=== PATIENT | female | born 1950 | race Caucasian/White ===

== ENCOUNTER → 2018-01-19 09:50 | Outpatient (CLI) | payer MEDICARE, OTHER, SELFPAY | PROVIDERS: Family Provider Family Medicine; PCP Family Medicine; Visit Provider Family Medicine | DX: M85.851 Other specified disorders of bone density and structure, right thigh (principal); Z78.0 Asymptomatic menopausal state; Z85.3 Personal history of malignant neoplasm of breast | CPT/HCPCS: 77080 ==

== ENCOUNTER → 2018-03-27 08:21 | Outpatient (CLI) | payer MEDICARE, OTHER, SELFPAY ==
[2018-03-27 09:04] LABS: Add Manual Diff / Slide Review NO; Basophils Percent Auto 0.9 % (0-2); Hematocrit 40.6 % (36-46); Hemoglobin 13.7 g/dL (12.0-16.0); Lymphocytes Percent Auto 16.1 % (25-40); Mean Corpuscular HGB Conc 33.8 % (30-36); Mean Corpuscular Hemoglobin 31.5 PG (26-34); Mean Corpuscular Volume 93.4 fL (80-100); Monocytes Percent Auto 6.7 % (3-14); Neutrophils Absolute Auto 6300 /uL (3000-5900); Neutrophils Percent Auto 73.3 % (50-75); Platelet Count 273 X10^3/uL (150-400); Red Blood Cell Count 4.35 X10^6/uL (4.0-5.2); Red Cell Distribution Width 12.7 % (11.6-14.8); White Blood Cell Count 8.5 X10^3/uL (4.5-11.0)
[2018-03-27 09:08] LABS: Alanine Aminotransferase 40 IU/L (9-52); Albumin 4.5 g/dL (3.5-5.0); Albumin Globulin Ratio 1.5 (1.0-2.8); Alkaline Phosphatase 66 U/L (38-126); Aspartate Aminotransferase 39 IU/L (14-36); Bilirubin Total 0.8 mg/dL (0.2-1.3); Blood Urea Nitrogen 28 mg/dL (7-17); Calcium 9.3 mg/dL (8.4-10.2); Carbon Dioxide 31 mmol/L (22-32); Chloride 100 mmol/L (98-107); Estimated Glomerular Filt Rate 37.3 mL/min (>60); Glucose 122 mg/dL (80-110); HEMOLYSIS 21 (0-50); Potassium 4.3 mmol/L (3.4-5.1); Sodium 139 mmol/L (137-145); Total Protein 7.5 g/dL (6.3-8.2)
[2018-03-27 09:23] LABS: Vitamin D 25 Hydroxy (D3) 17.2 ng/mL (30.0-100.0)
[2018-03-28 16:22] LABS: Cancer Antigen 27.29 30 U/mL (< 38)
== END ==
PROVIDERS: Family Provider Family Medicine; PCP Family Medicine; Visit Provider Nurse Practitioner Gerontology
DX: C50.911 Malignant neoplasm of unspecified site of right female breast (principal)
CPT/HCPCS: 36415; 80053; 82306; 85025; 86300

== ENCOUNTER 2018-08-30 12:34 | Day surgery (SDC) | payer MEDICARE, OTHER, SELFPAY ==
[2018-08-30 13:22] VITALS: BP 145/89; PULSE 93; RESP 15; TEMP 36.6; O2SAT 99; BMI 39.7
[2018-08-30] MEDS: PROPARACAINE 0.5% OPHTH SOL 2 DROPS EYE-OP (13:30)
[2018-08-30] MEDS: CATARACT EYE COMPOUND (10 DROPS/SYRINGE) 3 DROPS EYE-OP (13:32)
--- NOTE | 2018-08-30 14:22 | PM.PREOP ---
Pre-operative Note Interval Note History & Physical reviewed/Exam performed by Physician: Yes Changes to H&P: No
[2018-08-30] MEDS: CHONDROIDTIN/SOD HYALURONATE 1.05 ML SYRINGE INTRAOCULA (14:48)
[2018-08-30] MEDS: LIDOCAINE JELLY 2% 5 ML 1 APPLIC TOP (14:48)
[2018-08-30] MEDS: MOXIFLOXACIN OPHTH DROPS 3 ML BOTTLE 2 DROPS INJ (14:48)
[2018-08-30] MEDS: PHENYLEPHRINE/LIDOCAINE VIAL (OR) 0.2 ML EYE-OP (14:49)
[2018-08-30] MEDS: BALANCED SALT IRRIG SOLN NO.2 500 ML, EPINEPHrine 1 MG IRR (14:49)
--- NOTE | 2018-08-30 15:22 | P.OP_ITS ---
Procedure & Clinicians Procedure: cataract extraction with intraocular lens implant, right Same procedure as scheduled: Yes Indications: Visually significant nuclear sclerosis cataract, right Surgeon: Javier Gonzalez Click Yes if Unassisted: Yes Anesthesia Type: MAC +/- Operative Notes Procedure in detail: The patient was brought to the operating suite. The correct patient, surgical site and lens were confirmed. 0.5 % tetracaine drops were placed in the right eye. The cornea was marked with a corneal reference marker. The patient was prepped and draped in the typical sterile manner. A lid speculum was placed in the eye. A paracentesis port was created with a side- port blade. 0.1 mL of 1% preservative free lidocaine with phenylephrine was injected into the anterior chamber. Viscoelastic was injected into the anterior chamber. A 2.6mm keratome was used to create a clear corneal temporal incision. Cystotome and Utrata forceps were used to create a continuous curvilinear capsulorrhexis. Balanced salt solution was used to hydrodissect the nucleus. Phacoemulsification was used to remove the lens. The capsular bag was inflated with viscoelastic and marked at 118 degrees. A Galeano ACT 225 +16.0D lens was inserted into the capsule and aligned to 118 degrees. Viscoelastic was removed and the wound hydrated and reinforced with Resure sealant. The wound was found to be leak free and the eye was assessed to be at normal physiologic pressure. 0.1mL Vigamox was injected into the anterior chamber. The lid speculum was removed and the patient left the operating room in excellent condition. Complications: none Condition: stable Disposition: same day surgery
[2018-08-30 15:25] VITALS: BP 164/86; PULSE 88; RESP 16; TEMP 36.6; O2SAT 98
== END 2018-08-30 15:37 | disposition home or self-care (01) ==
LOC: OR 12:37
PROVIDERS: Family Provider Family Medicine; PCP Family Medicine; Visit Provider Ophthalmology
DX: H25.11 Age-related nuclear cataract, right eye (principal); I10 Essential (primary) hypertension
CPT/HCPCS: J0171; V2787

== ENCOUNTER 2018-09-13 06:48 | Day surgery (SDC) | payer MEDICARE, OTHER, SELFPAY ==
[2018-09-13 07:35] VITALS: BP 178/101; PULSE 63; RESP 15; TEMP 37.1; O2SAT 97; BMI 41.5
--- NOTE | 2018-09-13 07:35 | PM.PREOP ---
Pre-operative Note Interval Note History & Physical reviewed/Exam performed by Physician: Yes Changes to H&P: No
[2018-09-13] MEDS: PROPARACAINE 0.5% OPHTH SOL 2 DROPS EYE-OP (07:45)
[2018-09-13] MEDS: CATARACT EYE COMPOUND (10 DROPS/SYRINGE) 3 DROPS EYE-OP ×3 (07:50→08:00)
[2018-09-13] MEDS: TETRACAINE 0.5% OPHTH DROPS 4 ML 2 DROPS EYE-LEFT (08:40)
--- NOTE | 2018-09-13 08:54 | SUR.OPER ---
Supine on eye stretcher, head on extension cradle secured with tape. Arms tucked at sides with blanket. Pillow under knees.
[2018-09-13] MEDS: CHONDROIDTIN/SOD HYALURONATE 1.05 ML SYRINGE INTRAOCULA (08:56)
[2018-09-13] MEDS: MOXIFLOXACIN OPHTH DROPS 3 ML BOTTLE 2 DROPS INJ (08:56)
[2018-09-13] MEDS: PHENYLEPHRINE/LIDOCAINE VIAL (OR) 0.2 ML EYE-OP (08:57)
[2018-09-13] MEDS: BALANCED SALT IRRIG SOLN NO.2 500 ML, EPINEPHrine 1 MG IRR (08:57)
[2018-09-13] MEDS: LIDOCAINE 2% INJ SDV 0.5 ML TOP (09:00)
--- NOTE | 2018-09-13 09:20 | PM.OP.1 ---
Procedure & Clinicians Procedure: cataract extraction with intraocular lens implant, left Same procedure as scheduled: Yes Indications: Visually significant nuclear sclerosis cataract Surgeon: Javier Gonzalez Click Yes if Unassisted: Yes Anesthesia Type: MAC +/- Operative Notes Procedure in detail: The patient was brought to the operating suite. The correct patient, surgical site and lens were confirmed. 0.5 % tetracaine drops were placed in the left eye. The cornea was marked with a reference marker. The patient was prepped and draped in the typical sterile manner. A lid speculum was placed in the eye. 2% preservative free lidocaine was placed on the eye. A paracentesis port was created with a side-port blade. 0.1 mL of 1% preservative free lidocaine with phenylephrine was injected into the anterior chamber. Viscoelastic was injected into the anterior chamber. A 2.6mm keratome was used to create a clear corneal temporal incision. Cystotome and Utrata forceps were used to create a continuous curvilinear capsulorrhexis. Balanced salt solution was used to hydrodissect the nucleus. Phacoemulsification was used to remove the lens. The capsular bag was inflated with viscoelastic and marked at 23 degrees. A Galeano ZCT 150 +16.5D lens was inserted into the capsule and rotated to 23 degrees. Viscoelastic was removed and the wound hydrated. The wound was found to be leak free and the eye was assessed to be at normal physiologic pressure. 0.1mL Vigamox was injected into the anterior chamber. The lid speculum was removed and the patient left the operating room in excellent condition. Complications: none Condition: stable Disposition: same day surgery
[2018-09-13 09:28] VITALS: BP 163/80; PULSE 79; RESP 15; TEMP 36.8; O2SAT 98
== END 2018-09-13 09:33 ==
LOC: OR 06:50
PROVIDERS: Family Provider Family Medicine; PCP Family Medicine; Visit Provider Ophthalmology
DX: H25.12 Age-related nuclear cataract, left eye (principal); I10 Essential (primary) hypertension
CPT/HCPCS: J0171; V2787

== ENCOUNTER 2018-09-20 13:35 | Day surgery (SDC) | payer MEDICARE, OTHER, SELFPAY ==
[2018-09-20 15:31] VITALS: BP 141/90; PULSE 89; RESP 16; TEMP 36.2; O2SAT 98; BMI 39.6
[2018-09-20] MEDS: PROPARACAINE 0.5% OPHTH SOL 2 DROPS EYE-OP (15:33)
[2018-09-20] MEDS: CATARACT EYE COMPOUND (10 DROPS/SYRINGE) 3 DROPS EYE-OP (15:37)
--- NOTE | 2018-09-20 16:11 | PM.PREOP ---
Pre-operative Note Interval Note History & Physical reviewed/Exam performed by Physician: Yes Changes to H&P: No
[2018-09-20] MEDS: PHENYLEPHRINE/LIDOCAINE VIAL (OR) 0.2 ML EYE-OP (16:17)
[2018-09-20] MEDS: MOXIFLOXACIN OPHTH DROPS 3 ML BOTTLE 2 DROPS INJ (16:18)
[2018-09-20] MEDS: CHONDROIDTIN/SOD HYALURONATE 1.05 ML SYRINGE INTRAOCULA (16:18)
[2018-09-20] MEDS: BALANCED SALT IRRIG SOLN NO.2 15 ML IRR ×2 (16:19→16:32)
[2018-09-20] MEDS: TETRACAINE 0.5% OPHTH DROPS 4 ML 2 DROPS EYE-RIGHT (16:19)
[2018-09-20] MEDS: LIDOCAINE 2% INJ SDV 5 ML INJ (16:20)
--- NOTE | 2018-09-20 16:45 | PM.OP.1 ---
Procedure & Clinicians Procedure: repositioning intraocular lens right eye. Same procedure as scheduled: Yes Indications: Decentered intraocular lens, right Surgeon: Javier Gonzalez Click Yes if Unassisted: Yes Anesthesia Type: MAC +/- Operative Notes Procedure in detail: The patient was brought to the operating suite. 0.5 % tetracaine drops were placed in the right eye and the cornea was marked with a reference marker. The patient was prepped and draped in the typical sterile manner. A lid speculum was placed in the eye. 2% lidocaine was placed on the eye. The cornea was marked at 118 degrees. A paracentesis port was created with a side-port blade at 4 o 'clock. 1% preservative free lidocaine with phenylephrine was injected into the anterior chamber. The anterior lip of the capsule was freed from the intraocular lens with a 27 gauge needle and balanced salt solution. The lens was then rotated to 118 degrees and centered. The wound was found to be leak free and the eye was assessed to be at normal physiologic pressure. 0.1mL Vigamox was injected into the anterior chamber. The lid speculum was removed and the patient left the operating room in excellent condition. Complications: none Condition: stable Disposition: same day surgery
[2018-09-20 16:56] VITALS: BP 142/77; PULSE 83; RESP 16; TEMP 36.2; O2SAT 100
== END 2018-09-20 16:58 ==
LOC: OR 13:37
PROVIDERS: Family Provider Family Medicine; PCP Family Medicine; Visit Provider Ophthalmology
PROC: (CPT 66825; principal; 2018-09-20 15:30)
DX: T85.22XA Displacement of intraocular lens, initial encounter (principal)
CPT/HCPCS: 66825

== ENCOUNTER → 2018-10-24 08:10 | Outpatient (CLI) | payer MEDICARE, OTHER, SELFPAY ==
[2018-10-24 08:53] LABS: Add Manual Diff / Slide Review NO; Basophils Absolute Auto 100 /uL (0-100); Basophils Percent Auto 1.2 % (0-2); Eosinophils Absolute Auto 200 /uL (0-450); Eosinophils Percent Auto 2.4 % (2-4); Hematocrit 43.6 % (36-46); Hemoglobin 14.3 g/dL (12.0-16.0); Lymphocytes Absolute Auto 1200 /uL (1100-4500); Lymphocytes Percent Auto 14.3 % (25-40); Mean Corpuscular HGB Conc 32.7 % (30-36); Mean Corpuscular Volume 94.6 fL (80-100); Monocytes Absolute Auto 600 /uL (0-900); Monocytes Percent Auto 6.9 % (3-14); Neutrophils Absolute Auto 6300 /uL (1500-7000); Neutrophils Percent Auto 75.2 % (50-75); Platelet Count 266 X10^3/uL (150-400); Red Cell Distribution Width 12.8 % (11.6-14.8); White Blood Cell Count 8.4 X10^3/uL (4.5-11.0)
[2018-10-24 09:14] LABS: Alanine Aminotransferase 38 IU/L (9-52); Albumin 4.8 g/dL (3.5-5.0); Albumin Globulin Ratio 1.5 (1.0-2.8); Alkaline Phosphatase 67 U/L (38-126); Aspartate Aminotransferase 33 IU/L (14-36); BUN Creatinine Ratio 16.4 (6-22); Bilirubin Total 0.9 mg/dL (0.2-1.3); Blood Urea Nitrogen 23 mg/dL (7-17); Calcium 9.5 mg/dL (8.4-10.2); Carbon Dioxide 27 mmol/L (22-32); Chloride 99 mmol/L (98-107); Cholesterol 177 mg/dL (140-199); Estimated Glomerular Filt Rate 37.2 mL/min (>60); Globulin 3.3 g/dL (1.7-4.1); Glucose 111 mg/dL (80-110); HDL Cholesterol 56 mg/dL (40-60); HEMOLYSIS < 15 (0-50); LDL Cholesterol Calculated 91 mg/dL (<100); Potassium 4.2 mmol/L (3.4-5.1); Sodium 138 mmol/L (137-145); Total Protein 8.1 g/dL (6.3-8.2); Triglycerides 148 mg/dL (35-150)
[2018-10-24 09:57] LABS: Thyroid Stimulating Hormone 1.11 uIU/mL (0.47-4.68)
== END ==
PROVIDERS: PCP Family Medicine; Visit Provider Family Medicine
DX: E78.2 Mixed hyperlipidemia (principal); R53.83 Other fatigue; R79.89 Other specified abnormal findings of blood chemistry; N19 Unspecified kidney failure
CPT/HCPCS: 36415; 80053; 80061; 84443; 85025

== ENCOUNTER 2018-11-16 11:29 | Day surgery (SDC) | payer MEDICARE, OTHER, SELFPAY ==
[2018-11-16] MEDS: SODIUM CHLORIDE 0.9% 1,000 ML 200 ML IV (12:22)
[2018-11-16 12:24] VITALS: BP 149/88; PULSE 90; RESP 16; TEMP 36.5; O2SAT 99; BMI 39.2
--- NOTE | 2018-11-16 12:57 | PM.HP.1 ---
History of Present Illness Date Patient Seen: 11/16/18 Time Patient Seen: 12:58 Chief complaint: [id number] Narrative: Patient is here for a screening colonoscopy she has no melena no hematochezia no abdominal pain Patient History Surgical History History of nephrectomy Status post biopsy (08/09/12) Status post breast lumpectomy (08/23/07) Family History Father Cancer Heart disease Hypertension Hyperlipidemia Mother Heart disease Hypertension Sister Age: 69 Hypertension Hyperlipidemia Grandmother Cancer Social History household members: family occupational status: unemployed Smoking Status: Never smoker alcohol intake: never Family & Social History Family History Father Cancer Heart disease Hypertension Hyperlipidemia Mother Heart disease Hypertension Sister Age: 69 Hypertension Hyperlipidemia Grandmother Cancer Social History: household members family Tobacco & Substance use: Smoking Status Never smoker alcohol intake never Meds Home Medications Medication Instructions Recorded Confirmed Type losartan 50 mg-hydrochlorothiazide 1 tab PO QDAY #90 tab 01/02/18 11/16/18 Rx 12.5 mg tablet simvastatin 20 mg tablet 20 mg PO QDAY #90 tab 01/02/18 11/16/18 Rx acetaminophen [Tylenol Extra 500 mg PO Q6H PRN MDD pain 04/02/18 11/16/18 History Strength] alendronate 70 mg tablet 70 mg PO QWEEK 10/09/18 11/16/18 History Allergies Allergy/AdvReac Type Severity Reaction Status Date / Time amlodipine Allergy Mild SWELLING Verified 11/16/18 12:23 fentanyl Allergy Mild VOMITING Verified 11/16/18 12:23 neomycin Allergy Mild VOMITING,BLISTERING Verified 11/16/18 12:23 WITH NEOSPORIN oxycodone Allergy Mild VOMITING Verified 11/16/18 12:23 codeine AdvReac Mild VOMITING Verified 11/16/18 12:23 Exam Vital Signs (past 8 hours): - 11/16/18 12:24 Temperature 97.7 F Pulse Rate 90 Respiratory Rate 16 Blood Pressure 149/88 H Pulse Oximetry 99 Oxygen Delivery Method Room Air Chest Chest: normal inspection of the chest and normal palpation of entire chest wall Objective ECG Impression: The examination is unremarkable lungs are clear heart has a regular rhythm no murmur no gallop abdominal exam benign rectal exam will be done at time of colonoscopy assessment is screening colonoscopy no prior history of polyps Plan Is screening colonoscopy
[2018-11-16] MEDS: MIDAZOLAM 5 MG/5 ML VIAL IV (13:20)
--- NOTE | 2018-11-16 13:31 | PM.OP.1 ---
Procedure & Clinicians Same procedure as scheduled: Yes Click Yes if Unassisted: Yes Anesthesia Type: Sedation Operative Notes Findings: Patient has sigmoid diverticulosis otherwise a normal colonoscopy Procedure in detail: Total sedation time for this procedure was 13 minutes we used only Versed because she has narcotic allergies. Total colonoscopy to the cecum was accomplished minimal findings of sigmoid diverticulosis no tumors no polyps no ulcerations procedure was well tolerated Complications: none Condition: stable Disposition: PACU
[2018-11-16 13:34] VITALS: BP 147/84; PULSE 94; RESP 16; TEMP 36.5; O2SAT 100
[2018-11-16 13:39] VITALS: BP 160/73; PULSE 101; RESP 16; O2SAT 100
[2018-11-16 13:45] VITALS: BP 166/87; PULSE 98; RESP 14; TEMP 36.2; O2SAT 100
[2018-11-16 13:56] VITALS: BP 130/79; PULSE 99; RESP 16; TEMP 36.9; O2SAT 97
== END 2018-11-16 14:06 | disposition home or self-care (01) ==
PROVIDERS: PCP Family Medicine; Visit Provider Surgery
PROC: 0DJD8ZZ Inspection of Lower Intestinal Tract, Via Natural or Artificial Opening Endoscopic (ICD-10-PCS; CPT 45378; principal; 2018-11-16 13:00)
DX: Z12.11 Encounter for screening for malignant neoplasm of colon (principal); K57.30 Diverticulosis of large intestine without perforation or abscess without bleeding
CPT/HCPCS: G0121; J2250

== ENCOUNTER → 2018-11-21 08:44 | Outpatient (CLI) | payer MEDICARE, OTHER, SELFPAY ==
[2018-11-21 09:45] LABS: Add Manual Diff / Slide Review NO; Basophils Absolute Auto 100 /uL (0-100); Eosinophils Absolute Auto 200 /uL (0-450); Eosinophils Percent Auto 2.8 % (2-4); Hematocrit 42.5 % (36-46); Hemoglobin 14.2 g/dL (12.0-16.0); Lymphocytes Absolute Auto 1600 /uL (1100-4500); Lymphocytes Percent Auto 18.4 % (25-40); Mean Corpuscular HGB Conc 33.4 % (30-36); Mean Corpuscular Hemoglobin 31.1 PG (26-34); Monocytes Absolute Auto 600 /uL (0-900); Monocytes Percent Auto 7.6 % (3-14); Neutrophils Absolute Auto 5900 /uL (1500-7000); Neutrophils Percent Auto 70.2 % (50-75); Platelet Count 284 X10^3/uL (150-400); Red Blood Cell Count 4.57 X10^6/uL (4.0-5.2); White Blood Cell Count 8.4 X10^3/uL (4.5-11.0)
[2018-11-21 10:12] LABS: Alanine Aminotransferase 34 IU/L (9-52); Albumin 4.6 g/dL (3.5-5.0); Albumin Globulin Ratio 1.5 (1.0-2.8); Alkaline Phosphatase 74 U/L (38-126); Aspartate Aminotransferase 29 IU/L (14-36); BUN Creatinine Ratio 14.6 (6-22); Bilirubin Total 0.8 mg/dL (0.2-1.3); Blood Urea Nitrogen 19 mg/dL (7-17); Carbon Dioxide 24 mmol/L (22-32); Chloride 100 mmol/L (98-107); Estimated Glomerular Filt Rate 40.5 mL/min (>60); Globulin 3.1 g/dL (1.7-4.1); Glucose 108 mg/dL (80-110); HEMOLYSIS < 15 (0-50); Potassium 3.8 mmol/L (3.4-5.1); Sodium 137 mmol/L (137-145); Total Protein 7.7 g/dL (6.3-8.2)
== END ==
PROVIDERS: Family Provider Family Medicine; PCP Family Medicine; Visit Provider Internal Medicine Hematology & Oncology
DX: E55.9 Vitamin D deficiency, unspecified (principal); C50.919 Malignant neoplasm of unspecified site of unspecified female breast
CPT/HCPCS: 36415; 80053; 82306; 85025

== ENCOUNTER → 2018-11-23 07:49 | Outpatient (CLI) | payer MEDICARE, OTHER, SELFPAY ==
--- NOTE | 2018-11-23 07:51 | DI.MG.S_ITS ---
BILATERAL DIGITAL SCREENING MAMMOGRAM 3D/2D WITH CAD POST LUMPECTOMY: 11/23/2018 CLINICAL: Routine screening. Personal history of right breast cancer. Family history of breast cancer. Comparison is made to exams dated: 11/22/2017 mammogram, 11/08/2016 mammogram, and 11/05/2015 mammogram - [facility]. The tissue of both breasts is heterogeneously dense. This may lower the sensitivity of mammography. Current study was also evaluated with a Computer Aided Detection (CAD) system. There are benign post operative findings in the right breast. There also are benign calcifications in both breasts. No significant masses, calcifications, or other findings are seen in either breast. There has been no significant interval change. IMPRESSION: There is no mammographic evidence of malignancy. A 1 year screening mammogram is recommended. This exam was interpreted at Station ID: [id number]. NOTE: For mammograms, a report in lay terms will be sent to the patient. Approximately 15% of breast malignancies will not be visualized mammographically. In the management of a palpable breast mass, a negative mammogram must not discourage biopsy of a clinically suspicious lesion. Electronically Signed By: Milo fish/catherine:11/23/2018 12:10:51 copy to: Bernardo Geiger letter sent: Normal Exam ACR BI-RADS Category 2: Benign Finding(s) [id number]
== END ==
PROVIDERS: Family Provider Family Medicine; PCP Family Medicine; Visit Provider Internal Medicine Hematology & Oncology
DX: Z12.31 Encounter for screening mammogram for malignant neoplasm of breast (principal); Z85.3 Personal history of malignant neoplasm of breast; Z80.3 Family history of malignant neoplasm of breast
CPT/HCPCS: 77063; 77067

== ENCOUNTER → 2019-06-10 07:39 | Outpatient (CLI) | payer MEDICARE, OTHER, SELFPAY ==
[2019-06-10 08:09] LABS: Add Manual Diff / Slide Review NO; Basophils Absolute Auto 100 /uL (0-100); Basophils Percent Auto 0.8 % (0-2); Eosinophils Absolute Auto 200 /uL (0-450); Eosinophils Percent Auto 2.2 % (2-4); Hematocrit 41.8 % (36-46); Hemoglobin 14.1 g/dL (12.0-16.0); Lymphocytes Absolute Auto 1100 /uL (1100-4500); Mean Corpuscular HGB Conc 33.7 % (30-36); Mean Corpuscular Hemoglobin 31.4 PG (26-34); Mean Corpuscular Volume 93.3 fL (80-100); Monocytes Absolute Auto 700 /uL (0-900); Monocytes Percent Auto 7.7 % (3-14); Neutrophils Absolute Auto 7000 /uL (1500-7000); Neutrophils Percent Auto 77.3 % (50-75); Platelet Count 281 X10^3/uL (150-400); Red Blood Cell Count 4.48 X10^6/uL (4.0-5.2); Red Cell Distribution Width 12.8 % (11.6-14.8)
[2019-06-10 08:14] LABS: Alanine Aminotransferase 27 IU/L (9-52); Albumin 4.8 g/dL (3.5-5.0); Albumin Globulin Ratio 1.5 (1.0-2.8); Alkaline Phosphatase 74 U/L (38-126); Aspartate Aminotransferase 35 IU/L (14-36); Bilirubin Total 0.9 mg/dL (0.2-1.3); Blood Urea Nitrogen 24 mg/dL (7-17); Carbon Dioxide 27 mmol/L (22-32); Chloride 99 mmol/L (98-107); Estimated Glomerular Filt Rate 34.2 mL/min (>60); Globulin 3.1 g/dL (1.7-4.1); Glucose 118 mg/dL (80-110); HEMOLYSIS < 15 (0-50); Potassium 4.2 mmol/L (3.4-5.1); Sodium 138 mmol/L (137-145); Total Protein 7.9 g/dL (6.3-8.2)
[2019-06-10 09:11] LABS: Vitamin D 25 Hydroxy (D3) 27.6 ng/mL (30.0-100.0)
== END ==
PROVIDERS: Internal Medicine Hematology & Oncology; PCP Family Medicine; Visit Provider Family Medicine
DX: E55.9 Vitamin D deficiency, unspecified (principal); M85.80 Other specified disorders of bone density and structure, unspecified site; R79.89 Other specified abnormal findings of blood chemistry; C50.919 Malignant neoplasm of unspecified site of unspecified female breast
CPT/HCPCS: 36415; 80053; 82306; 85025

== ENCOUNTER → 2019-07-10 08:12 | Outpatient (CLI) | payer MEDICARE, OTHER, SELFPAY ==
--- NOTE | 2019-07-10 08:14 | DI.RAD.S_ITS ---
PROCEDURE: XR ANKLE RT MIN 3V INDICATIONS: Right ankle pain. TECHNIQUE: 3 views of the ankle were acquired. COMPARISON: None. FINDINGS: Bones: No fractures or dislocations. Ankle mortise is normally aligned. No suspicious bony lesions. There are mild degenerative changes of the right fibula-talar joint/lateral right ankle as evidenced by osteophyte formation. There are also degenerative changes of the midfoot with a prominent dorsal navicular osteophyte identified best on lateral view. Soft tissues: No tibiotalar joint effusion. A mild plantar calcaneal enthesophyte noted. IMPRESSION: 1. Mild degenerative changes of the lateral right ankle and right midfoot, with no acute fracture or dislocation of the right ankle identified radiographically. Consider followup radiographs in 7-10 days versus MRI if there is continued clinical concern. 2. Mild plantar calcaneal enthesopathy. Dictated by: Amilcar Parry M.D. on 07/10/2019 at 9:28 Approved by: Amlicar Parry M.D. on 07/10/2019 at 9:34
== END ==
PROVIDERS: PCP Family Medicine; Visit Provider Family Medicine
DX: M25.571 Pain in right ankle and joints of right foot (principal); M77.31 Calcaneal spur, right foot
CPT/HCPCS: 73610

== ENCOUNTER 2019-09-10 12:19 | Emergency (ER) | payer MEDICARE, OTHER, SELFPAY ==
[2019-09-10 12:20] VITALS: BP 198/90; PULSE 73; RESP 13; TEMP 36.2; O2SAT 99
--- NOTE | 2019-09-10 13:05 | DI.CT.S_ITS ---
PROCEDURE: CT HEAD/BRAIN WO CON INDICATIONS: sudden onset lightheaded TECHNIQUE: Noncontrast 4.5 mm thick angled axial sections acquired from the foramen magnum to the vertex, with coronal and sagittal reformats. For radiation dose reduction, the following was used: automated exposure control, adjustment of mA and/or kV according to patient size. COMPARISON: None. FINDINGS: Image quality: Excellent. CSF spaces: Basal cisterns are patent. No extra-axial fluid collections. Ventricles are normal in size and shape. Brain: No intracranial hemorrhage, mass, or mass effect. Mera-white matter interface is preserved. Skull and face: Calvarium and visualized facial bones appear intact, without suspicious lesions. Sinuses: Visualized sinuses and mastoids are clear. IMPRESSION: 1. No acute intracranial abnormality. Dictated by: Jarad Snowden M.D. on 09/10/2019 at 13:49 Approved by: Jarad Snowden M.D. on 09/10/2019 at 13:51
[2019-09-10] MEDS: SODIUM CHLORIDE 0.9% 1,000 ML 1000 ML IV (13:36)
[2019-09-10 13:37] LABS: Add Manual Diff / Slide Review NO; Basophils Absolute Auto 100 /uL (0-100); Basophils Percent Auto 1.4 % (0-2); Eosinophils Absolute Auto 200 /uL (0-450); Eosinophils Percent Auto 2.2 % (2-4); Hematocrit 40.4 % (36-46); Hemoglobin 13.7 g/dL (12.0-16.0); Lymphocytes Absolute Auto 1300 /uL (1100-4500); Lymphocytes Percent Auto 15.7 % (25-40); Mean Corpuscular HGB Conc 33.9 % (30-36); Mean Corpuscular Hemoglobin 31.4 PG (26-34); Mean Corpuscular Volume 92.8 fL (80-100); Monocytes Absolute Auto 600 /uL (0-900); Monocytes Percent Auto 7.2 % (3-14); Neutrophils Absolute Auto 6000 /uL (1500-7000); Neutrophils Percent Auto 73.5 % (50-75); Platelet Count 247 X10^3/uL (150-400); Red Blood Cell Count 4.36 X10^6/uL (4.0-5.2); Red Cell Distribution Width 12.9 % (11.6-14.8); White Blood Cell Count 8.1 X10^3/uL (4.5-11.0)
[2019-09-10] MEDS: MECLIZINE HCL 12.5 MG TABLET 25 MG PO (13:39)
[2019-09-10 13:44] LABS: Prothrombin Time 10.9 SECONDS (10.1-12.7)
[2019-09-10 13:49] LABS: Alanine Aminotransferase 22 IU/L (<35); Albumin 4.6 g/dL (3.5-5.0); Albumin Globulin Ratio 1.4 (1.0-2.8); Alkaline Phosphatase 62 U/L (38-126); Aspartate Aminotransferase 27 IU/L (14-36); BUN Creatinine Ratio 18.6 (6-22); Bilirubin Total 0.6 mg/dL (0.2-1.3); Blood Urea Nitrogen 26 mg/dL (7-17); Calcium 10.3 mg/dL (8.4-10.2); Carbon Dioxide 27 mmol/L (22-32); Chloride 101 mmol/L (98-107); Creatine Kinase 89 U/L (30-135); Estimated Glomerular Filt Rate 37.1 mL/min (>60); Globulin 3.2 g/dL (1.7-4.1); Glucose 117 mg/dL (80-110); HEMOLYSIS 17 (0-50); Potassium 3.8 mmol/L (3.4-5.1); Sodium 138 mmol/L (137-145); Total Protein 7.8 g/dL (6.3-8.2)
[2019-09-10 14:01] LABS: Troponin I < 0.012 ng/mL (0.01-0.034)
[2019-09-10 14:26] VITALS: BP 173/87; PULSE 57; RESP 16; O2SAT 98
[2019-09-10 15:04] VITALS: BP 156/83; PULSE 54; O2SAT 97
--- NOTE | 2019-09-10 17:13 | ED.DIZZY ---
HPI - Dizziness <GILSON Carty-BC - Last Filed: 09/10/19 17:20> General Chief Complaint: Dizziness Stated Complaint: DIZZY Time Seen by Provider: 09/10/19 12:32 Source: patient Mode of arrival: Ambulatory Limitations: no limitations History of Present Illness HPI Narrative: The patient is a 69-year-old female nonsmoker with history of breast cancer who presents with a chief complaint of spinning sensation with sudden onset this morning at 8:00 a.m.. She states she is placed in the dentist chair and laid back for her procedure when she had a sudden onset of spinning sensation. She states that now whenever she bends forward or backward and turns her head, she feels as though she is spinning. She denies any chest pain, shortness of breath, weakness, blurred vision or visual changes, confusion etcetera she drove from the dentist office to cook pickled meat her twin sister and then dropped to the emergency department today after she called her physician's nurse. Denies any vomiting, does complain of nausea with the spinning hit. Denies any fevers, sore throat or ear pain. Related Data Home Medications Medication Instructions Recorded Confirmed acetaminophen [Tylenol Extra 500 mg PO Q6H PRN MDD pain 04/02/18 07/03/19 Strength] losartan-hydrochlorothiazide 1 tab PO DAILY 09/10/19 09/10/19 Previous Rx's Medication Instructions Recorded alendronate 70 mg tablet 70 mg PO QWEEK #12 tab 06/13/19 simvastatin 20 mg tablet 20 mg PO QDAY #90 tab 06/13/19 meclizine 25 mg PO TID PRN #20 tab 09/10/19 Allergies Allergy/AdvReac Type Severity Reaction Status Date / Time amlodipine Allergy Mild SWELLING Verified 07/03/19 08:16 fentanyl Allergy Mild VOMITING Verified 07/03/19 08:16 neomycin Allergy Mild VOMITING,BLISTERING Verified 07/03/19 08:16 WITH NEOSPORIN oxycodone Allergy Mild VOMITING Verified 07/03/19 08:16 codeine AdvReac Mild VOMITING Verified 07/03/19 08:16 Review of Systems <GILSON Carty-BC - Last Filed: 09/10/19 17:20> Review of Systems Narrative: GENERAL: Denies chills, fatigue, malaise, fever, sweats. HEENT: Denies sinus pain, ear pain, sore throat, difficulty swallowing, dizziness. RESPIRATORY: Denies dyspnea, cough, wheezing, hemoptysis, sputum. CARDIOVASCULAR: Denies chest pain, palpitations, orthopnea, edema, GASTROINTESTINAL: Denies nausea, vomiting, abdominal pain, diarrhea, constipation, melena. : Denies dysuria, frequency, incontinence, hematuria, urinary retention. MUSCULOSKELETAL: denies weakness, joint pain, or bony pain SKIN: Denies rash, skin lesions, or other NEUROLOGIC: See HPI PSYCHIATRIC: No concerning psychosocial issues. 12 point review of systems is negative except for those stated above Patient History <MARY Carty - Last Filed: 09/10/19 17:20> Surgical History History of nephrectomy Status post biopsy (08/09/12) Status post breast lumpectomy (08/23/07) Family History Father Cancer Heart disease Hypertension Hyperlipidemia Mother Heart disease Hypertension Sister Age: 70 Hypertension Hyperlipidemia Grandmother Cancer Social History household members: family occupational status: unemployed Smoking Status: Never smoker alcohol intake: never Smoking Status: Never smoker Substance Use Type: does not use Exam <MARY Carty - Last Filed: 09/10/19 17:20> Narrative Exam Narrative: GENERAL: This is a well-nourished, well-developed patient, in no acute distress HEAD: Atraumatic. Normocephalic. No temporal or scalp tenderness. EYES: Pupils equal round and reactive. Extraocular motions intact. No scleral icterus. No injection or drainage. ENT: Nose without bleeding, purulent drainage or septal hematoma. Throat without erythema, tonsillar hypertrophy or exudate. Uvula midline. Airway patent. NECK: Trachea midline. No JVD or lymphadenopathy. Supple, nontender, no meningeal signs. CARDIOVASCULAR: Regular rate and rhythm without murmurs, gallops, or rubs. RESPIRATORY: Clear to auscultation. Breath sounds equal bilaterally. No wheezes, rales, or rhonchi. No cough. No increased respiratory effort. No accessory muscle use. GASTROINTESTINAL: Abdomen soft, non-tender, nondistended. No hepato-splenomegaly, or palpable masses. No guarding. Active bowel sounds all 4 quadrants. EXTREMITIES: No clubbing, cyanosis, or edema. No joint tenderness, effusion, or edema noted. BACK: Nontender without deformity or crepitance. No flank tenderness. NEURO: AOx3. Stable gait, age-appropriate, no gross cranial nerve deficit. Strength is equal upper and lower extremities bilaterally, NIH 0 clear speech SKIN: No rash or erythema on visible skin Initial Vital Signs Initial Vital Signs: Vital Signs Temperature 97.1 F L 09/10/19 12:20 Pulse Rate 73 09/10/19 12:20 Respiratory Rate 13 09/10/19 12:20 Blood Pressure 198/90 H 09/10/19 12:20 Pulse Oximetry 99 09/10/19 12:20 <Marnie Blum DO - Last Filed: 09/11/19 07:23> Initial Vital Signs Initial Vital Signs: Vital Signs Temperature 97.1 F L 09/10/19 12:20 Pulse Rate 73 09/10/19 12:20 Respiratory Rate 13 09/10/19 12:20 Blood Pressure 198/90 H 09/10/19 12:20 Pulse Oximetry 99 09/10/19 12:20 Scores <MARY Carty - Last Filed: 09/10/19 17:20> GCS Nai coma scale eye opening: Spontaneous [place] coma scale verbal response: Orientated [place] coma scale motor response: Obey commands Nai coma scale total score: 15 NIH Stroke Scale Level of Conciousness: Alert, keenly responsive Ask month/age: Answers both questions correctly. Open/close eyes, close hand: Performs both tasks correctly Best gaze horizontal: Normal Visual snyder: No visual loss Facial palsy: Normal symetrical movement Left arm drift: No drift for full 10 sec Right arm drift: No drift for full 10 sec Left leg drift: No drift for full 10 sec Right leg drift: No drift for full 10 sec Limb ataxia: Absent Sensory on face/arms/legs: Normal, no sensory loss Best language: No aphasia, normal Dysarthria: Normal Extinction or inattention: No abnormality Total NIH Stroke scale score: 0 Course <MARY Carty - Last Filed: 09/10/19 17:20> Orders Ordered: Discontinued Medications Sodium Chloride (Normal Saline 0.9%) 1,000 mls @ 1,000 mls/hr IV BOLUS ONE Stop: 09/10/19 14:33 Last Infusion: 09/10/19 15:08 Dose: 0 mls/hr Documented by: Admin: 09/10/19 13:36 Dose: 1,000 mls/hr Documented by: ADELAIDE Meclizine HCl (Antivert) 25 mg PO NOW ONE Stop: 09/10/19 13:35 Last Admin: 09/10/19 13:39 Dose: 25 mg Documented by: ADELAIDE Vital Signs Vital signs: Vital Signs - 8 hr 09/10/19 12:20 09/10/19 14:26 09/10/19 15:04 Temperature 97.1 F L Pulse Rate 73 57 L 54 L Respiratory Rate 13 16 Blood Pressure 198/90 H Blood Pressure [Left Arm] 173/87 H 156/83 H Pulse Oximetry 99 98 97 <Marnie Blum DO - Last Filed: 09/11/19 07:23> Orders Ordered: Discontinued Medications Sodium Chloride (Normal Saline 0.9%) 1,000 mls @ 1,000 mls/hr IV BOLUS ONE Stop: 09/10/19 14:33 Last Infusion: 09/10/19 15:08 Dose: 0 mls/hr Documented by: Admin: 09/10/19 13:36 Dose: 1,000 mls/hr Documented by: ADELAIDE Meclizine HCl (Antivert) 25 mg PO NOW ONE Stop: 09/10/19 13:35 Last Admin: 09/10/19 13:39 Dose: 25 mg Documented by: ADELAIDE Vital Signs Vital signs: Vital Signs - 8 hr 09/10/19 12:20 09/10/19 14:26 09/10/19 15:04 Temperature 97.1 F L Pulse Rate 73 57 L 54 L Respiratory Rate 13 16 Blood Pressure 198/90 H Blood Pressure [Left Arm] 173/87 H 156/83 H Pulse Oximetry 99 98 97 MDM - Dizziness <MARY Carty - Last Filed: 09/10/19 17:20> Lab Data Result diagrams: 09/10/19 13:30 09/10/19 13:30 Labs: Lab Results 09/10/19 09/10/19 09/10/19 Range/Units 13:30 13:30 13:30 WBC 8.1 (4.5-11.0) X10^3/uL RBC 4.36 (4.0-5.2) X10^6/uL Hgb 13.7 (12.0-16.0) g/dL Hct 40.4 (36-46) % MCV 92.8 (80-100) fL MCH 31.4 (26-34) PG MCHC 33.9 (30-36) % RDW 12.9 (11.6-14.8) % Plt Count 247 (150-400) X10^3/uL Neut % (Auto) 73.5 (50-75) % Lymph % (Auto) 15.7 L (25-40) % Crawford % (Auto) 7.2 (3-14) % Eos % (Auto) 2.2 (2-4) % Baso % (Auto) 1.4 (0-2) % Neut # (Auto) 6000 (4257-2331) /uL Lymph # (Auto) 1300 (1762-4352) /uL Crawford # (Auto) 600 (0-900) /uL Eos # (Auto) 200 (0-450) /uL Baso # (Auto) 100 (0-100) /uL PT 10.9 (10.1-12.7) SECONDS INR 1.0 (0.9-1.3) Sodium 138 (137-145) mmol/L Potassium 3.8 (3.4-5.1) mmol/L Chloride 101 (98-107) mmol/L Carbon Dioxide 27 (22-32) mmol/L BUN 26 H (7-17) mg/dL Creatinine 1.40 H (0.52-1.04) mg/dL Estimated GFR 37.1 L (>60) mL/min BUN/Creatinine Ratio 18.6 (6-22) Glucose 117 H (80-110) mg/dL Calcium 10.3 H (8.4-10.2) mg/dL Total Bilirubin 0.6 (0.2-1.3) mg/dL AST 27 (14-36) IU/L ALT 22 (<35) IU/L Alkaline Phosphatase 62 (38-126) U/L Total Creatine Kinase 89 (30-135) U/L CK-MB (CK-2) TNP CK-MB (CK-2) Rel Index TNP Troponin I < 0.012 (0.01-0.034) ng/mL Total Protein 7.8 (6.3-8.2) g/dL Albumin 4.6 (3.5-5.0) g/dL Globulin 3.2 (1.7-4.1) g/dL Albumin/Globulin Ratio 1.4 (1.0-2.8) Urine Dip Bedside Urine Glucose Negative Bedside Urine Bilirubin - Negative Bedside Urine Ketone - Negative Urine Specific [place] 1.020 Bedside Urine Occult Blood - Negative Bedside Urine pH 6.0 Bedside Urine Protein - Negative Bedside Urine Urobilinogen - Negative Bedside Urine Nitrite - Negative Bedside Urine Leukocytes - Negative Esterase Imaging Data CT scan - head: Radiologist's Impression: [address] [address] [address] Scan Report Signed Patient: Blanca Sanches#: [id number] : 8Acct:[id number] Age/Sex: 69 / FDate of Service: 09/10/19 Loc: ED Accession Number: [id number] Procedure: CT head/brain wo con Ordering Provider: Zenia Govea- PROCEDURE: CT HEAD/BRAIN WO CON INDICATIONS: sudden onset lightheaded TECHNIQUE: Noncontrast 4.5 mm thick angled axial sections acquired from the foramen magnum to the vertex, with coronal and sagittal reformats. For radiation dose reduction, the following was used: automated exposure control, adjustment of mA and/or kV according to patient size. COMPARISON: None. FINDINGS: Image quality: Excellent. CSF spaces: Basal cisterns are patent. No extra-axial fluid collections. Ventricles are normal in size and shape. Brain: No intracranial hemorrhage, mass, or mass effect. Mera-white matter interface is preserved. Skull and face: Calvarium and visualized facial bones appear intact, without suspicious lesions. Sinuses: Visualized sinuses and mastoids are clear. IMPRESSION: 1. No acute intracranial abnormality. Dictated by: Jarad Snowden M.D. on 09/10/2019 at 13:49 Approved by: Jarad Snowden M.D. on 09/10/2019 at 13:51 [facility] Narrative Medical decision making narrative: The patient is a 69-year-old female who presents with a chief complaint of sudden onset of dizziness when lying back in her dentist chair. Head CT shows no acute abnormalities, troponin is negative, and patient is GCS is 15, NIH is 0. She felt much better after single dose of meclizine. History and exam correlates with vertigo. Discussed at length following up with primary care provider, did give prescription of meclizine. Discussed going back to ER for acute concerns. Patient has no questions or concerns upon discharge and states understanding return precautions as well as follow-up care. <Marnie Blum, DO - Last Filed: 09/11/19 07:23> Lab Data Labs: Lab Results 09/10/19 09/10/19 09/10/19 Range/Units 13:30 13:30 13:30 WBC 8.1 (4.5-11.0) X10^3/uL RBC 4.36 (4.0-5.2) X10^6/uL Hgb 13.7 (12.0-16.0) g/dL Hct 40.4 (36-46) % MCV 92.8 (80-100) fL MCH 31.4 (26-34) PG MCHC 33.9 (30-36) % RDW 12.9 (11.6-14.8) % Plt Count 247 (150-400) X10^3/uL Neut % (Auto) 73.5 (50-75) % Lymph % (Auto) 15.7 L (25-40) % Crawford % (Auto) 7.2 (3-14) % Eos % (Auto) 2.2 (2-4) % Baso % (Auto) 1.4 (0-2) % Neut # (Auto) 6000 (8850-1233) /uL Lymph # (Auto) 1300 (7298-0580) /uL Crawford # (Auto) 600 (0-900) /uL Eos # (Auto) 200 (0-450) /uL Baso # (Auto) 100 (0-100) /uL PT 10.9 (10.1-12.7) SECONDS INR 1.0 (0.9-1.3) Sodium 138 (137-145) mmol/L Potassium 3.8 (3.4-5.1) mmol/L Chloride 101 (98-107) mmol/L Carbon Dioxide 27 (22-32) mmol/L BUN 26 H (7-17) mg/dL Creatinine 1.40 H (0.52-1.04) mg/dL Estimated GFR 37.1 L (>60) mL/min BUN/Creatinine Ratio 18.6 (6-22) Glucose 117 H (80-110) mg/dL Calcium 10.3 H (8.4-10.2) mg/dL Total Bilirubin 0.6 (0.2-1.3) mg/dL AST 27 (14-36) IU/L ALT 22 (<35) IU/L Alkaline Phosphatase 62 (38-126) U/L Total Creatine Kinase 89 (30-135) U/L CK-MB (CK-2) TNP CK-MB (CK-2) Rel Index TNP Troponin I < 0.012 (0.01-0.034) ng/mL Total Protein 7.8 (6.3-8.2) g/dL Albumin 4.6 (3.5-5.0) g/dL Globulin 3.2 (1.7-4.1) g/dL Albumin/Globulin Ratio 1.4 (1.0-2.8) Urine Dip Bedside Urine Glucose Negative Bedside Urine Bilirubin - Negative Bedside Urine Ketone - Negative Urine Specific [place] 1.020 Bedside Urine Occult Blood - Negative Bedside Urine pH 6.0 Bedside Urine Protein - Negative Bedside Urine Urobilinogen - Negative Bedside Urine Nitrite - Negative Bedside Urine Leukocytes - Negative Esterase ECG Data Attestation: I personally reviewed and interpreted this ECG as follows: Prior ECG tracings: available for review Interpretation: sinus arrhythmia rate 65 p.r. interval [address] elevation or depression there Discharge Plan Departure Patient Disposition: Home Clinical Impression: Vertigo, Dizziness Discharge Date/Time: 09/10/19 15:27 Instructions: DI for Vertigo, DI for Dizziness-Nonvertigo Activity Restrictions/Additional Instructions: As I discussed, you did the right thing by coming to the emergency department today. Please do back to the emergency department if you have any acute concerns. As discussed, your lab work and imaging came back reassuring today. You felt better after single dose of meclizine, which is a medication for vertigo As I discussed please follow-up with primary care provider in the next few days. Please come back to emergency department for any acute concerns such as concern of heart attack, stroke etcetera I've given you a prescription for a vertigo medication please be aware this can be sedating. Do not take and drive etcetera Prescriptions: New meclizine 25 mg tablet 25 mg PO TID PRN (Reason: dizziness) Qty: 20 RF: 0 No Action alendronate 70 mg tablet 70 mg PO QWEEK Qty: 12 RF: 0 simvastatin 20 mg tablet 20 mg PO QDAY Qty: 90 RF: 3 acetaminophen [Tylenol Extra Strength] 500 mg Tablet 500 mg PO Q6H MDD pain PRN (Reason: pain) RF: 0 losartan-hydrochlorothiazide 50-12.5 mg tablet 1 tab PO DAILY RF: 0 Referrals: Bernardo Geiger MD [Primary Care Provider] -
== END 2019-09-10 15:27 | disposition home or self-care (01) ==
PROVIDERS: Emergency Provider Nurse Practitioner Family; PCP Family Medicine
DX: R42 Dizziness and giddiness (principal); R40.2412 Glasgow coma scale score 13-15, at arrival to emergency department
CPT/HCPCS: 36415; 70450; 80053; 81003; 82550; 84484; 85025; 85610; 93005; 93010; 96360; 96361; 99285

== ENCOUNTER 2019-10-15 08:15 | Outpatient (RCR) | payer MEDICARE, OTHER, SELFPAY ==
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
--- NOTE | 2019-09-16 16:00 | PT.OPPOC ---
Physical, Occupational & Speech Therapy At [facility] Current Diagnoses Dizziness and giddiness (09/16/19) Visit Care Team Role Provider Type Bernardo Geiger MD Attending Provider Physician Primary Care Provider Specialty: Family Practice Address: [address] [place] [address], [id number] Email: [email or web address] Plan Of Care PT-OP-T Assessment and Plan Start: 09/16/19 17:38 Freq: Status: Active Protocol: Document 09/16/19 15:15 DCW (Rec: 09/17/19 09:52 DCW [id number]) Physical Therapy Assessment Rehab Potential Rehabilitation Potential Good Evaluation Complexity Number of Personal Factors/Comorbidities 1-2 Number of Body Systems Impaired 1-2 Clinical Presentation at Evaluation Stable Impairments Impairments Vestibular Goals One Impairment Pt had episode of dizziness when lying back in dentist chair Rag Inspector Goal (LTG) Pt to tolerate dental appointment on 10/09/19 with no episodes of dizziness or vertigo LTG Duration 10/10/19 Assessment Summary Assessment Pt vestibular testing today was entirely negative. Symptoms were not provoked with any tests. Pt's description of events are not specifically suggestive of and vestibular disorder. Pt's report of sudden dizziness when leaning back in the dentist chair could be BPPV, however pt then said it continued with the same intensity until she arrived at the ED hours later, although she also noted that it subsided enough that she felt safe driving when leaving the dentist office, and took herself to the ED. The positioning may also play a factor in cervicogenic dizziness, which may fit with her long-standing history of cervical pain, however therapist was unable to reproduce any symptoms in the clinic. After discussing possible ways to go from here, patient and therapist were in agreement to, since she is currently 100% better, cancel her scheduled appointments until 10/10/19, which is the day after her next dentist appointment. If pt has another episode at the dentist, she will return for a follow-up, however if she experiences no further symptoms, she will call, cancel all appointments, and be discharged from skilled therapy. Physical Therapy Plan Frequency and Duration Frequency of Treatment 2x/Week Duration of Treatment 2 months Plan of Care Start Date 09/16/19 Plan of Care End Date 11/15/19 Therapeutic Interventions Therapeutic Interventions Balance Training,Canalithic Repositioning,Patient/ Caregiver Education,Self-Care/ Home Management,Vestibular Rehabilitation Next Visit Focus/Plan Next Note Type Treatment Note Next Visit Plan Further vestibular testing, balance testing as indicated per pt symptoms Plan of Care Dates Plan of Care Start Date 09/16/19 Plan of Care End Date 11/15/19 Electronically Signed by: Gavin Moreno, PT 09/17/19 0953 Please Sign and Return: I have reviewed this Plan of Care and certify that the skilled therapy services above are required to meet the patient?s needs. Physician Signature Date Printed Name and Credentials Clinical Instructor Signature Printed Name and Credentials
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
--- NOTE | 2019-10-10 11:27 | PT.OPPOC ---
Physical, Occupational & Speech Therapy At [facility] Current Diagnoses Pain in left shoulder (10/10/19) Cervicalgia (10/10/19) Dizziness and giddiness (10/10/19) Visit Care Team Role Provider Type Bernardo Geiger MD Attending Provider Physician Primary Care Provider Specialty: Family Practice Address: [address] [place] [address], [facility] Email: [email or web address] Plan Of Care PT-OP-T Assessment and Plan Start: 09/16/19 17:38 Freq: Status: Active Protocol: Document 10/10/19 08:15 AMB (Rec: 10/10/19 10:25 AMB [id number]) Physical Therapy Assessment Goals Three Impairment Cervical function Short Term Goal (STG) Blanca Worrell will improve her cervical extension to 45 degrees. STG Duration 4 weeks Horticultural Therapist Goal (LTG) Blanca Worrell will move through her full range of motion cervical extension without pain or dizziness. LTG Duration 8 weeks Two Impairment L shoulder function Short Term Goal (STG) Pt will improve shoulder ER strength to 4+/5 or better. STG Duration 4 weeks Group Home Goal (LTG) Blanca Worrell will leaf size picker 10# with her L arm without shoulder pain. LTG Duration 8 weeks One Impairment Dizziness Horticultural Therapist Goal (LTG) Pt will get into and out of bed in any positiong without dizziness. LTG Duration 8 weeks Assessment Summary Assessment Pt returns to PT with new referral for neck and L shoulder pain. Her dizziness continues to be intermittent in nature. Pt does describe initial sx as blacking out but has not had that so much as intermittent short term spinning since that time. She did have dizziness when returning from vertebral artery testing and when sitting up from L [place]-Hallpike . She had weakness in her L shoulder which appears to be unrelated to her cervical spine dysfunction, more from recent lifting injury with weakness with ER and tenderness over long head of biceps tendon. She will benefit from PT to address her cervical function and dizziness (although cervicogenic dizziness test was negative but not a specific test), can retest L [place]-Hallpike when cervical sx are decreased, as pt was lightly symptomatic, but no visible nystagmus, felt worse when coming up, which is not indicative of BPPV. L shoulder will not be as much of a priority, but pt will benefit from instruction in rotator cuff strengthening. Physical Therapy Plan Frequency and Duration Frequency of Treatment 1x/Week Duration of Treatment 2 months Plan of Care Start Date 10/10/19 Plan of Care End Date 12/09/19 Therapeutic Interventions Therapeutic Interventions Balance Training,Canalithic Repositioning,Gait Training, Home Exercise Program,Manual Therapy,Neuromuscular Re- education,Self-Care/Home Management,Therapeutic Activities,Therapeutic Exercises,Vestibular Rehabilitation Plan of Care Dates Plan of Care Start Date 10/10/19 Plan of Care End Date 12/09/19 Electronically Signed by: Estee Brothers, PT 10/10/19 [id number] Please Sign and Return: I have reviewed this Plan of Care and certify that the skilled therapy services above are required to meet the patient?s needs. Physician Signature Date Printed Name and Credentials Clinical Instructor Signature Printed Name and Credentials
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
== END 2020-04-02 08:15 ==
LOC: PHYS 08:15
PROVIDERS: PCP Family Medicine; Visit Provider Family Medicine
DX: R42 Dizziness and giddiness (principal); M54.2 Cervicalgia; M25.512 Pain in left shoulder
CPT/HCPCS: 97112; 97140; 97161; 97164

== ENCOUNTER 2019-12-02 14:36 | Inpatient (IN) | payer MEDICARE, OTHER, SELFPAY ==
[2019-12-02 14:45] VITALS: BP 149/85; PULSE 106; RESP 14; TEMP 36.7; O2SAT 97; BMI 38.0
[2019-12-02 15:13] VITALS: PULSE 91
[2019-12-02 15:20] LABS: Add Manual Diff / Slide Review NO; Basophils Absolute Auto 0 /uL (0-100); Basophils Percent Auto 0.2 % (0-2); Eosinophils Absolute Auto 0 /uL (0-450); Eosinophils Percent Auto 0.2 % (2-4); Hematocrit 40.3 % (36-46); Hemoglobin 13.3 g/dL (12.0-16.0); Lymphocytes Absolute Auto 1100 /uL (1100-4500); Lymphocytes Percent Auto 5.6 % (25-40); Mean Corpuscular Hemoglobin 30.8 PG (26-34); Mean Corpuscular Volume 93.5 fL (80-100); Monocytes Absolute Auto 1000 /uL (0-900); Monocytes Percent Auto 4.8 % (3-14); Neutrophils Absolute Auto 17600 /uL (1500-7000); Neutrophils Percent Auto 89.2 % (50-75); Platelet Count 224 X10^3/uL (150-400); Red Blood Cell Count 4.31 X10^6/uL (4.0-5.2); Red Cell Distribution Width 12.3 % (11.6-14.8); White Blood Cell Count 19.7 X10^3/uL (4.5-11.0)
--- NOTE | 2019-12-02 15:20 | ED_ITS ---
HPI - Extremity Problem General Chief complaint: Extremity Problem,Nontraumatic Stated complaint: cellulitis Time Seen by Provider: 12/02/19 14:40 Source: patient Mode of arrival: Ambulatory Limitations: no limitations History of Present Illness HPI Narrative: 69-year-old female. History of breast cancer. Has had lymph node resection right upper extremity. Has had lymphedema since then. Two days ago started having chills. Yesterday worsening with redness in her right upper extremity which worsened today. Went her primary doctor's office. Was febrile and tachycardic at that time. Was sent to the emergency department for admission for IV antibiotics secondary to cellulitis. Upon arrival patient states she does have warmth in her right upper extremity. The swelling that is there is not new. No trauma. Has not tried anything for symptoms prior to arrival. Related Data Home Medications Medication Instructions Recorded Confirmed acetaminophen [Tylenol Extra 500 mg PO Q6H PRN MDD pain 04/02/18 12/02/19 Strength] Previous Rx's Medication Instructions Recorded alendronate 70 mg tablet 70 mg PO QWEEK #12 tab 10/02/19 losartan 50 mg-hydrochlorothiazide 1 tab PO DAILY #90 tab 10/02/19 12.5 mg tablet simvastatin 20 mg tablet 20 mg PO QDAY #90 tab 10/02/19 Allergies Allergy/AdvReac Type Severity Reaction Status Date / Time amlodipine Allergy Mild SWELLING Verified 12/02/19 14:57 fentanyl Allergy Mild VOMITING Verified 12/02/19 14:57 neomycin Allergy Mild VOMITING,BLISTERING Verified 12/02/19 14:57 WITH NEOSPORIN oxycodone Allergy Mild VOMITING Verified 12/02/19 14:57 codeine AdvReac Mild VOMITING Verified 12/02/19 14:57 Review of Systems Constitutional Constitutional: Reports chills and Reports fever(s) Cardiovascular Cardiovascular: Denies chest pain and Denies dyspnea Respiratory Respiratory: Denies dyspnea Musculoskeletal Musculoskeletal: Denies back pain and Denies arthralgias Integumentary/Breasts Comments: Right arm redness Neurologic Neurologic: Denies behavioral changes Psychiatric Psychiatric: Denies behavioral changes Hematologic/Lymphatic Hematologic/Lymphatic: Denies easy bleeding and Denies easy bruising Patient History Medical History Breast cancer in female (Inactive) Surgical History History of nephrectomy Status post biopsy (08/09/12) Status post breast lumpectomy (08/23/07) Social History household members: family occupational status: unemployed Smoking Status: Never smoker alcohol intake: never Smoking Status: Never smoker Substance Use Type: does not use Exam Initial Vital Signs Initial Vital Signs: Vital Signs Temperature 98.1 F 12/02/19 14:45 Pulse Rate 106 H 12/02/19 14:45 Respiratory Rate 14 12/02/19 14:45 Blood Pressure 149/85 H 12/02/19 14:45 Pulse Oximetry 97 12/02/19 14:45 Const General: cooperative, comfortable and well developed Limitations: mental status not altered HENMT Head: normal to inspection and normocephalic Resp Effort & Inspection: normal respiratory effort Cardio Rate: tachycardic Pulses: radial pulses present on the right Skin Other: Patient with redness of her right upper extremity from just proximal to h er wrist to just proximal to her elbow. Circumferential. Neuro General: alert and awake Cognition: normal cognition Speech: speech normal Extrem Other: Flex and extend at the elbow wrist and shoulder without problems. Course Orders Ordered: ED Orders 12/02/19 15:05 Basic Metabolic Panel Stat Complete Blood Count AUTO DIFF Stat Lactate (Lactic Acid) Stat Procalcitonin Stat 12/02/19 15:34 Blood Culture Stat Sodium Chloride (Normal Saline 0.9%) 1,000 mls @ 125 mls/hr IV CONT DENISE Last Admin: 12/02/19 15:30 Dose: 125 mls/hr Documented by: GRECIA Vancomycin HCl (Vancomycin) 1,000 mg in 200 mls @ 200 mls/hr IV NOW ONE Stop: 12/02/19 16:24 Last Admin: 12/02/19 15:30 Dose: 200 mls/hr Documented by: GRECIA Ceftriaxone Sodium/Dextrose (Rocephin) 1 gm in 50 mls @ 100 mls/hr IV NOW ONE Stop: 12/02/19 16:29 Vital Signs Vital signs: Vital Signs - 8 hr 12/02/19 14:45 12/02/19 15:13 Temperature 98.1 F Pulse Rate 106 H Pulse Rate [Right Radial] 91 H Respiratory Rate 14 Blood Pressure 149/85 H Pulse Oximetry 97 MDM - Extremity (Nontraumatic) Lab Data Attestation: I reviewed the patient's lab results. Result diagrams: 12/02/19 15:05 12/02/19 15:05 Labs: Lab Results 12/02/19 12/02/19 12/02/19 Range/Units 15:05 15:05 15:05 WBC 19.7 H (4.5-11.0) X10^3/uL RBC 4.31 (4.0-5.2) X10^6/uL Hgb 13.3 (12.0-16.0) g/dL Hct 40.3 (36-46) % MCV 93.5 (80-100) fL MCH 30.8 (26-34) PG MCHC 33.0 (30-36) % RDW 12.3 (11.6-14.8) % Plt Count 224 (150-400) X10^3/uL Neut % (Auto) 89.2 H (50-75) % Lymph % (Auto) 5.6 L (25-40) % [place] % (Auto) 4.8 (3-14) % Eos % (Auto) 0.2 L (2-4) % Baso % (Auto) 0.2 (0-2) % Neut # (Auto) 93136 H (8375-0249) /uL Lymph # (Auto) 1100 (8141-3459) /uL [place] # (Auto) 1000 H (0-900) /uL Eos # (Auto) 0 (0-450) /uL Baso # (Auto) 0 (0-100) /uL Sodium 136 L (137-145) mmol/L Potassium 3.6 (3.4-5.1) mmol/L Chloride 100 (98-107) mmol/L Carbon Dioxide 26 (22-32) mmol/L BUN 25 H (7-17) mg/dL Creatinine 1.47 H (0.52-1.04) mg/dL Estimated GFR 35.0 L (>60) mL/min BUN/Creatinine Ratio 17.0 (6-22) Glucose 107 (80-110) mg/dL Lactate (0.7-2.1) mmol/L Calcium 10.2 (8.4-10.2) mg/dL Procalcitonin 0.46 (<0.5) ng/mL 12/02/19 Range/Units 15:05 WBC (4.5-11.0) X10^3/uL RBC (4.0-5.2) X10^6/uL Hgb (12.0-16.0) g/dL Hct (36-46) % MCV (80-100) fL MCH (26-34) PG MCHC (30-36) % RDW (11.6-14.8) % Plt Count (150-400) X10^3/uL Neut % (Auto) (50-75) % Lymph % (Auto) (25-40) % [place] % (Auto) (3-14) % Eos % (Auto) (2-4) % Baso % (Auto) (0-2) % Neut # (Auto) (7138-1952) /uL Lymph # (Auto) (8034-6737) /uL [place] # (Auto) (0-900) /uL Eos # (Auto) (0-450) /uL Baso # (Auto) (0-100) /uL Sodium (137-145) mmol/L Potassium (3.4-5.1) mmol/L Chloride (98-107) mmol/L Carbon Dioxide (22-32) mmol/L BUN (7-17) mg/dL Creatinine (0.52-1.04) mg/dL Estimated GFR (>60) mL/min BUN/Creatinine Ratio (6-22) Glucose (80-110) mg/dL Lactate 1.7 (0.7-2.1) mmol/L Calcium (8.4-10.2) mg/dL Procalcitonin (<0.5) ng/mL MDM Narrative Medical decision making narrative: History and physical exam is consistent with cellulitis. Does have a leukocytosis. Febrile at her primary doctor's office but afebrile here. Was given vancomycin here in the ER. Discussed the case with Dr. Stinson with Internal Medicine who will admit for further evaluation and treatment. She also recommended that we give the patient Rocephin. Discussed admission with the patient. She expressed understanding and agreement. Discharge Plan Departure Patient Disposition: Admitted As Inpatient Clinical Impression: Right arm cellulitis Admit Date/Time: 12/02/19 16:04 Admit Provider: Trinity Stinson
[2019-12-02] MEDS: SODIUM CHLORIDE 0.9% 1,000 ML 125 ML IV (15:30)
[2019-12-02] MEDS: VANCOMYCIN 1,000 MG/200 ML PIGGYBACK 200 MG IV (15:30)
[2019-12-02 15:36] LABS: Blood Urea Nitrogen 25 mg/dL (7-17); Calcium 10.2 mg/dL (8.4-10.2); Carbon Dioxide 26 mmol/L (22-32); Chloride 100 mmol/L (98-107); Glucose 107 mg/dL (80-110); HEMOLYSIS 24 (0-50); Lactate (Lactic Acid) 1.7 mmol/L (0.7-2.1); Potassium 3.6 mmol/L (3.4-5.1); Sodium 136 mmol/L (137-145)
[2019-12-02 15:59] LABS: Procalcitonin 0.46 ng/mL (<0.5)
[2019-12-02 16:31] VITALS: BP 141/72; PULSE 82; RESP 14; O2SAT 100
[2019-12-02] MEDS: CEFTRIAXONE 1 GM/50 ML FROZ.PIGGY IV (16:34)
[2019-12-02 17:02] VITALS: BMI 37.0
[2019-12-02 17:03] VITALS: BP 153/90; PULSE 90; RESP 20; TEMP 37.2; O2SAT 98
--- NOTE | 2019-12-02 18:13 | PM.HP.1 ---
History of Present Illness History of Present Illness Date Patient Seen: 12/02/19 Chief complaint: cellulitis Narrative: Blanca Sanches is a 69-year-old female with a past medical history significant for hypertension, hyperlipidemia, osteoporosis, breast cancer status post lumpectomy, lymphadenectomy with residual right arm lymphedema, chemo and radiation considered in remission, and right renal carcinoma status post nephrectomy and CKD stage 3 who presented to the ED at direction of her PCP, Dr. Geiger, for right arm cellulitis. The patient reports that she went to bed yesterday evening and awoke at approximately 11:00 p.m. with chills and burning sensation of her right arm. The patient wraps her right arm each night to help manage her lymphedema. The patient reports that when she unwrapped her arm and it was erythematous and warm. She has never had cellulitis before. She has no trauma, insect bites or apparent breaks in the skin of her right arm. The skin of her right arm is slightly dry. She has no other complaints and denies headache, chest pain, shortness of breath, abdominal pain, nausea, vomiting, fever, chills, dysuria, diarrhea or constipation. The patient is admitted for treatment of cellulitis. Patient History Medical History (Updated 12/02/19 @ 18:23 by Trinity Stinson DO) Breast cancer in female (Inactive) CKD (chronic kidney disease) stage 3, GFR 30-59 ml/min (Acute) Hyperlipidemia (Acute) Hypertension (Acute) Lymphedema of arm (Acute) Osteoporosis (Acute) Post-lymphadenectomy lymphedema of arm (Acute) Renal carcinoma (Acute) Surgical History H/O cataract removal with insertion of prosthetic lens (Acute) H/O ventral hernia repair (Acute) History of nephrectomy Hx of tonsillectomy (Acute) Status post biopsy (08/09/12) Status post breast lumpectomy (08/23/07) Family & Social History Family History Father Cancer Heart disease Hypertension Hyperlipidemia Mother Heart disease Hypertension Sister Age: 70 Hypertension Hyperlipidemia Grandmother Cancer Social History: household members family Prior Living Arrangements House Safety & Behavioral: Feels Safe in Current Yes Environment Been Physically Hurt or No Threatened By a Person Suicidal Ideation Description None Suicide Plan Description No Plan Tobacco & Substance use: Smoking Status Never smoker alcohol intake never Substance Use Type does not use Meds Home Medications and Allergies Home Medications Medication Instructions Recorded Confirmed Type acetaminophen [Tylenol Extra 500 mg PO Q6H PRN MDD pain 04/02/18 12/02/19 History Strength] alendronate 70 mg tablet 70 mg PO QWEEK #12 tab 10/02/19 12/02/19 Rx losartan 50 mg-hydrochlorothiazide 1 tab PO DAILY #90 tab 10/02/19 12/02/19 Rx 12.5 mg tablet simvastatin 20 mg tablet 20 mg PO QDAY #90 tab 10/02/19 12/02/19 Rx Allergies Allergy/AdvReac Type Severity Reaction Status Date / Time amlodipine Allergy Mild SWELLING Verified 12/02/19 14:57 fentanyl Allergy Mild VOMITING Verified 12/02/19 14:57 neomycin Allergy Mild VOMITING,BLISTERING Verified 12/02/19 14:57 WITH NEOSPORIN oxycodone Allergy Mild VOMITING Verified 12/02/19 14:57 codeine AdvReac Mild VOMITING Verified 12/02/19 14:57 Review of Systems Review of Systems Narrative: A 10 system comprehensive review of systems was conducted with the patient and found to be negative except as above in the History of Present Illness. Exam Vital Signs (past 8 hours): - 12/02/19 14:45 12/02/19 15:13 12/02/19 16:31 Temperature 98.1 F Pulse Rate 106 H 82 Pulse Rate [Right Radial] 91 H Respiratory Rate 14 14 Blood Pressure 149/85 H Blood Pressure [Left Arm] 141/72 H Pulse Oximetry 97 100 12/02/19 17:03 Temperature 98.9 F Pulse Rate 90 Pulse Rate [Right Radial] Respiratory Rate 20 Blood Pressure 153/90 H Blood Pressure [Left Arm] Pulse Oximetry 98 Oxygen Delivery Method Room Air Narrative Exam Narrative: General: Elderly female sitting in bed and in no acute distress, well-developed, well-nourished, appropriately interactive. HEENT: Normocephalic, atraumatic. External ears without defect. Pupils equal, round, and reactive to light. Anicteric sclerae, moist conjunctivae, and no lid lag. Oropharynx free of erythema and cobble stoning with moist mucosa. Neck: Supple with full range of motion. No jugular venous distension. No bruits. No lymphadenopathy or thyromegaly. Cardiovascular: Regular rate and rhythm without murmurs, rubs, or gallops appreciated. Pulmonary: Clear to auscultation bilaterally without crackles, wheezes, or rhonchi. Normal respiratory effort with no use of accessory muscles. Abdomen: Soft, obese, bowel sounds present, nontender, nondistended. No hepatosplenomegaly or masses appreciated. Extremities: Right arm with moderate lymphedema, erythema and warmth from distal wrist to upper forearm. No clubbing, cyanosis, or edema of other extremities Skin: Normal temperature, turgor, and texture; no rash, ulcers, or subcutaneous nodules appreciated. Neurological: Cranial nerves grossly intact. Psychiatric: Normal mood and affect. Alert and oriented to person, place, and time. Objective Labs Result Diagrams: 12/02/19 15:05 12/02/19 15:05 Labs: Laboratory Results - last 24 hr 12/02/19 12/02/19 12/02/19 15:05 15:05 15:05 WBC 19.7 H RBC 4.31 Hgb 13.3 Hct 40.3 MCV 93.5 MCH 30.8 MCHC 33.0 RDW 12.3 Plt Count 224 Neut % (Auto) 89.2 H Lymph % (Auto) 5.6 L [place] % (Auto) 4.8 Eos % (Auto) 0.2 L Baso % (Auto) 0.2 Neut # (Auto) 62045 H Lymph # (Auto) 1100 [place] # (Auto) 1000 H Eos # (Auto) 0 Baso # (Auto) 0 Sodium 136 L Potassium 3.6 Chloride 100 Carbon Dioxide 26 BUN 25 H Creatinine 1.47 H Estimated GFR 35.0 L BUN/Creatinine Ratio 17.0 Glucose 107 Lactate Calcium 10.2 Procalcitonin 0.46 12/02/19 15:05 WBC RBC Hgb Hct MCV MCH MCHC RDW Plt Count Neut % (Auto) Lymph % (Auto) [place] % (Auto) Eos % (Auto) Baso % (Auto) Neut # (Auto) Lymph # (Auto) [place] # (Auto) Eos # (Auto) Baso # (Auto) Sodium Potassium Chloride Carbon Dioxide BUN Creatinine Estimated GFR BUN/Creatinine Ratio Glucose Lactate 1.7 Calcium Procalcitonin Assessment & Plan Assessment & Plan narrative: Blanca Sanches is a 69-year-old female with a past medical history significant for hypertension, hyperlipidemia, osteoporosis, breast cancer status post lumpectomy, lymphadenectomy with residual right arm lymphedema, chemo and radiation considered in remission, and right renal carcinoma status post nephrectomy in CKD stage 3 who presented to the ED at direction of her PCP, Dr. Geiger, for right arm cellulitis. 1. Right arm cellulitis, secondary to lymphedema, present on admission. Active. -Patient presented with right arm cellulitis that began day prior to admission. No clear entry site for infection. Right arm outlined. -Initial WBC 19.7 and procalcitonin 0.46. Continue to monitor WBC and procalcitonin daily. -Received 1 L NS in ED. Patient appears adequately hydrated and will not continue IV fluids at this time. -Received vancomycin with dosing per pharmacist and ceftriaxone 1 g IV x1 in ED. Continue vancomycin with dosing per pharmacist and a ceftriaxone 2 g IV daily. -Continue supportive measures including: Acetaminophen 650 mg every 6 hours as needed for fever or pain and elevation of right upper extremity above level of heart frequently and for as long as tolerated. 2. Hypertension, chronic, present on admission. Stable. -Continue home losartan/hydrochlorothiazide 50/12.5 mg daily. 3. Hyperlipidemia, chronic, present on admission. Stable. -Continue home simvastatin 20 mg daily. 4. Osteoporosis, chronic, present on admission. Stable -Patient takes aledronate 70 mg weekly on Monday. 5. Chronic kidney disease stage 3, present on admission. Stable. -Initial creatinine 1.47 and appears to be at baseline. -Avoid nephrotoxin agents and renally dose medications. -Continue to monitor creatinine daily. 6. History of right breast cancer. -Patient is status post lumpectomy, lymphadenectomy, chemo and radiation and considered to be in remission. Patient is followed by Dr. Miguel of Oncology. 7. History of right renal carcinoma. -Patient is status right post nephrectomy and is considered to be in remission. Code status: Limited intervention which includes ONLY 1 round of CPR and defibrillation. No intubation. VTE prophylaxis: SQ Heparin Patient is admitted under inpatient status with expected length of stay greater than 2 midnights due to severity of presenting symptoms, risk of adverse event, and complexity of treatment plan. Quality VTE Deep Vein Thrombosis/Pulmonary Embolism Present on Admission: No
[2019-12-02 21:04] VITALS: BP 124/58; PULSE 65; RESP 18; TEMP 36.6; O2SAT 97
[2019-12-02] MEDS: HEPARIN 5,000 UNIT/ML VIAL 5000 UNIT SUBCUT (21:20)
[2019-12-02] MEDS: SIMVASTATIN 20 MG TABLET PO (21:25)
--- NOTE | 2019-12-02 21:57 | PC.NURSE ---
Pt admitted to 224 per stretcher from ED, IV infusing to L Hand. Oriented to environment, call light, bed in low and locked position, bed alarm on. R arm red and swollen, area demarcated with marker. R arm elevated on 2 pillows. Denies pain or discomfort.
[2019-12-03] VITALS: BP 120/61; PULSE 82; RESP 18; TEMP 37.3; O2SAT 96
[2019-12-03 04:58] VITALS: BP 127/61; PULSE 62; RESP 18; TEMP 36.9; O2SAT 95
[2019-12-03 05:13] LABS: Add Manual Diff / Slide Review NO; Basophils Absolute Auto 100 /uL (0-100); Basophils Percent Auto 0.6 % (0-2); Eosinophils Absolute Auto 100 /uL (0-450); Eosinophils Percent Auto 0.9 % (2-4); Hematocrit 36.2 % (36-46); Hemoglobin 12.1 g/dL (12.0-16.0); Lymphocytes Absolute Auto 1300 /uL (1100-4500); Lymphocytes Percent Auto 10.5 % (25-40); Mean Corpuscular HGB Conc 33.5 % (30-36); Mean Corpuscular Hemoglobin 31.4 PG (26-34); Mean Corpuscular Volume 93.7 fL (80-100); Monocytes Absolute Auto 1000 /uL (0-900); Neutrophils Absolute Auto 9600 /uL (1500-7000); Platelet Count 202 X10^3/uL (150-400); Red Blood Cell Count 3.86 X10^6/uL (4.0-5.2); Red Cell Distribution Width 12.3 % (11.6-14.8); White Blood Cell Count 12.1 X10^3/uL (4.5-11.0)
[2019-12-03 05:34] LABS: BUN Creatinine Ratio 14.4 (6-22); Blood Urea Nitrogen 20 mg/dL (7-17); Calcium 9.2 mg/dL (8.4-10.2); Carbon Dioxide 28 mmol/L (22-32); Chloride 101 mmol/L (98-107); Estimated Glomerular Filt Rate 37.4 mL/min (>60); Glucose 112 mg/dL (80-110); HEMOLYSIS 17 (0-50); Magnesium 1.7 mg/dL (1.6-2.3); Potassium 3.8 mmol/L (3.4-5.1); Sodium 134 mmol/L (137-145)
[2019-12-03 05:53] LABS: Procalcitonin 0.46 ng/mL (<0.5)
[2019-12-03 07:46] VITALS: BP 126/69; PULSE 60; RESP 20; TEMP 36.6; O2SAT 98
--- NOTE | 2019-12-03 08:49 | CM.DANOTE ---
DCP assessment: Reviewed chart. Patient is a 69yr old female admitted to [facility] with cellulitis. PCP is Dr. Geiger. Primary payor is 1)Medicare 2)[employer]. Met with patient explained CM/SW role. Patient alert and oriented at time of visit. Patient reports that she is very I in all ADL's. Patient resides at home with her twin sister. Patient uses no DME at baseline. Patient was told that her cellulitis might be from over washing her right arm. Patient reports that she has been very cautious lately given the COVID 19 outbreak. P: Anticipate home when medically stable. SAJI Higginbotham
--- NOTE | 2019-12-03 09:10 | P.DS_ITS ---
History of Present Illness History of Present Illness Chief complaint: cellulitis Narrative: Written by myself Dr. Stinson: Blanca Sanches is a 69-year-old female with a past medical history significant for hypertension, hyperlipidemia, osteoporosis, breast cancer status post lumpectomy, lymphadenectomy with residual right arm lymphedema, chemo and radiation considered in remission, and right renal carcinoma status post nephrectomy and CKD stage 3 who presented to the ED at direction of her PCP, Dr. Geiger, for right arm cellulitis. The patient reports that she went to bed yesterday evening and awoke at approximately 11:00 p.m. with chills and burning sensation of her right arm. The patient wraps her right arm each night to help manage her lymphedema. The patient reports that when she unwrapped her arm and it was erythematous and warm. She has never had cellulitis before. She has no trauma, insect bites or apparent breaks in the skin of her right arm. The skin of her right arm is slightly dry. She has no other complaints and denies headache, chest pain, shortness of breath, abdominal pain, nausea, vomiting, fever, chills, dysuria, diarrhea or constipation. The patient is admitted for treatment of cellulitis. Discharge Providers Provider Date of admission: 12/02/19 16:04 Discharge Date: 12/03/19 Primary care physician: Bernardo Geiger MD Discharge provider: Trinity Stinson DO Summary Hospital Course Discharge Diagnosis: 1. Right arm cellulitis, secondary to lymphedema, present on admission. Resolving. 2. Hypertension, chronic, present on admission. Stable. 3. Hyperlipidemia, chronic, present on admission. Stable. 4. Osteoporosis, chronic, present on admission. Stable 5. Chronic kidney disease stage 3, present on admission. Stable. 6. History of right breast cancer. 7. History of right renal carcinoma. Hospital Course: Blanca Sanches is a 69-year-old female with a past medical history significant for hypertension, hyperlipidemia, osteoporosis, breast cancer status post lump ectomy, lymphadenectomy with residual right arm lymphedema, chemo and radiation considered in remission, and right renal carcinoma status post nephrectomy in CKD stage 3 who presented to the ED at direction of her PCP, Dr. Geiger, for right arm cellulitis. 1. Right arm cellulitis, secondary to lymphedema, present on admission. Resolving. -Patient presented with right arm cellulitis that began day prior to admission. No clear entry site for infection. Right arm outlined and improved more rapidly than anticipated. -Initial WBC 19.7 and procalcitonin 0.46. WBC trended down to 12.1. Continued to monitor WBC and procalcitonin daily. -Received 1 L NS in ED. Patient appears adequately hydrated and will not continue IV fluids at this time. -Received vancomycin with dosing per pharmacist and ceftriaxone 1 g IV x1 in ED. Discharged on Keflex 250 mg 3 times daily (renally dosed) and doxycycline 100 mg twice daily for 9 additional days to complete total of 10 day antibiotic course. -Continued supportive measures including: Acetaminophen 650 mg every 6 hours as needed for fever or pain and elevation of right upper extremity above level of heart frequently and for as long as tolerated. 2. Hypertension, chronic, present on admission. Stable. -Continued home losartan/hydrochlorothiazide 50/12.5 mg daily. 3. Hyperlipidemia, chronic, present on admission. Stable. -Continued home simvastatin 20 mg daily. 4. Osteoporosis, chronic, present on admission. Stable -Patient takes aledronate 70 mg weekly on Monday. 5. Chronic kidney disease stage 3, present on admission. Stable. -Initial creatinine 1.47 and appears to be at baseline. -Avoided nephrotoxin agents and renally dosed medications. -Continued to monitor creatinine daily. 6. History of right breast cancer. -Patient is status post lumpectomy, lymphadenectomy, chemo and radiation and considered to be in remission. Patient is followed by Dr. Miguel of Oncology. 7. History of right renal carcinoma. -Patient is status right post nephrectomy and is considered to be in remission. Exam Vital Signs (past 8 hours): - 12/03/19 04:58 12/03/19 07:46 Temperature 98.4 F 97.9 F Pulse Rate 62 60 Respiratory Rate 18 20 Blood Pressure 127/61 126/69 Pulse Oximetry 95 98 Oxygen Delivery Method Room Air Oxygen Flow Rate 0 Narrative Exam Narrative: General: Elderly female sitting in bed and in no acute distress, well- developed, well-nourished, appropriately interactive. HEENT: Normocephalic, atraumatic. External ears without defect. Pupils equal, round, and reactive to light. Anicteric sclerae, moist conjunctivae, and no lid lag. Oropharynx free of erythema and cobble stoning with moist mucosa. Neck: Supple with full range of motion. No jugular venous distension. No bruits. No lymphadenopathy or thyromegaly. Cardiovascular: Regular rate and rhythm without murmurs, rubs, or gallops appreciated. Pulmonary: Clear to auscultation bilaterally without crackles, wheezes, or rhonchi. Normal respiratory effort with no use of accessory muscles. Abdomen: Soft, obese, bowel sounds present, nontender, nondistended. No hepato splenomegaly or masses appreciated. Extremities: Right arm with moderate lymphedema that is chronic. Erythema of upper right arm nearly resolved and mild residual erythema and warmth of distal forearm to wrist, improving. No clubbing, cyanosis, or edema of other extremities Skin: Normal temperature, turgor, and texture; no rash, ulcers, or subcutaneous nodules appreciated. Neurological: Cranial nerves grossly intact. Psychiatric: Normal mood and affect. Alert and oriented to person, place, and time. Objective Labs Result Diagrams: 12/03/19 04:45 12/03/19 04:45 Labs: Laboratory Results - last 24 hr 12/02/19 12/02/19 12/02/19 15:05 15:05 15:05 WBC 19.7 H RBC 4.31 Hgb 13.3 Hct 40.3 MCV 93.5 MCH 30.8 MCHC 33.0 RDW 12.3 Plt Count 224 Neut % (Auto) 89.2 H Lymph % (Auto) 5.6 L [place] % (Auto) 4.8 Eos % (Auto) 0.2 L Baso % (Auto) 0.2 Neut # (Auto) 44011 H Lymph # (Auto) 1100 [place] # (Auto) 1000 H Eos # (Auto) 0 Baso # (Auto) 0 Sodium 136 L Potassium 3.6 Chloride 100 Carbon Dioxide 26 BUN 25 H Creatinine 1.47 H Estimated GFR 35.0 L BUN/Creatinine Ratio 17.0 Glucose 107 Lactate Calcium 10.2 Magnesium Procalcitonin 0.46 12/02/19 12/03/19 12/03/19 15:05 04:45 04:45 WBC 12.1 H RBC 3.86 L Hgb 12.1 Hct 36.2 MCV 93.7 MCH 31.4 MCHC 33.5 RDW 12.3 Plt Count 202 Neut % (Auto) 80.0 H Lymph % (Auto) 10.5 L [place] % (Auto) 8.0 Eos % (Auto) 0.9 L Baso % (Auto) 0.6 Neut # (Auto) 9600 H Lymph # (Auto) 1300 [place] # (Auto) 1000 H Eos # (Auto) 100 Baso # (Auto) 100 Sodium Potassium Chloride Carbon Dioxide BUN Creatinine Estimated GFR BUN/Creatinine Ratio Glucose Lactate 1.7 Calcium Magnesium Procalcitonin 0.46 12/03/19 04:45 WBC RBC Hgb Hct MCV MCH MCHC RDW Plt Count Neut % (Auto) Lymph % (Auto) [place] % (Auto) Eos % (Auto) Baso % (Auto) Neut # (Auto) Lymph # (Auto) [place] # (Auto) Eos # (Auto) Baso # (Auto) Sodium 134 L Potassium 3.8 Chloride 101 Carbon Dioxide 28 BUN 20 H Creatinine 1.39 H Estimated GFR 37.4 L BUN/Creatinine Ratio 14.4 Glucose 112 H Lactate Calcium 9.2 Magnesium 1.7 Procalcitonin Discharge Plan Discharge Plan Patient Disposition: Home Discharge comment: You're being discharged home. You have cellulitis of your right arm. You have been prescribed Keflex 250 mg 3 times daily and doxycycline 100 mg twice daily for 9 additional days to complete 10 days total of antibiotic treatment. Please continue elevating your right arm above the level of your heart frequently and for as long as tolerated. Please keep your right arm clean and dry (pat to dry). Please do not wrap your arm for lymphedema until your cellulitis has completely resolved and you have finished your antibiotic course. Please follow-up with your primary care provider, Dr. Geiger, in the next 1 week regarding your hospitalization. Discharge orders & Medications Prescriptions: New cephalexin [Keflex] 250 mg capsule 250 mg PO TID Qty: 27 RF: 0 doxycycline hyclate 100 mg capsule 100 mg PO BID Qty: 18 RF: 0 Continued losartan-hydrochlorothiazide 50-12.5 mg tablet 1 tab PO DAILY Qty: 90 RF: 2 alendronate 70 mg tablet 70 mg PO QWEEK Qty: 12 RF: 2 simvastatin 20 mg tablet 20 mg PO QDAY Qty: 90 RF: 2 acetaminophen [Tylenol Extra Strength] 500 mg Tablet 500 mg PO Q6H MDD pain PRN (Reason: pain) RF: 0 Follow up/Referrals: Bernardo Geiger MD [Primary Care Provider] - 1 Week Diet/Activity/Treatments Diet: Low-fat, Low-sodium and Low-cholesterol Activity: Activity as tolerated Visit Report/Discharge Packet Instructions: DI for Cellulitis -- Adult, How To Perform RICE (Rest, Ice, Compress, Elevate) Discharge Data Primary Care Provider: Bernardo Geiger VTE Deep Vein Thrombosis/Pulmonary Embolism Present on Admission: No
[2019-12-03] MEDS: DOXYCYCLINE HYCLATE 100 MG TABLET PO (10:12)
[2019-12-03] MEDS: hydroCHLOROthiazide 12.5 MG CAPSULE PO (10:12)
[2019-12-03] MEDS: cephALEXin 250 MG CAPSULE PO (10:12)
[2019-12-03] MEDS: LOSARTAN 50 MG TABLET PO (10:13)
--- NOTE | 2019-12-03 10:35 | PC.NURSE ---
Pt d/c'd to home per hospitalist order. Provided d/c packet and educational materials in written format and verbally reviewed dx, treatment plan, medications, activity instructions, dietary recommendations, abx regimen, side effects, next doses due, s/s of deterioration, when to seek emergency medical treatment. Instructed pt that f/u is needed. She would like to schedule her own f/u appt. She verbalizes understanding of d/c teaching. PIV removed with cath tip intact. Telemetry monitoring removed. Pt dressed herself and transferred to w/c independently with steady gait. Dr. Stinson states she may drive herself home. Pt was escorted to PO by [facility] in no acute distress for d/c home at 1030. All belongings gathered and sent with pt.
== END 2019-12-03 10:30 | disposition home or self-care (01) | DRG 603 ==
LOC: ED 16:01 → AC 16:06
PROVIDERS: Admitting Provider Internal Medicine; Emergency Provider Emergency Medicine; PCP Family Medicine; Referring Provider Emergency Medicine; Visit Provider Internal Medicine
DX: L03.113 Cellulitis of right upper limb (principal); N18.3 Chronic kidney disease, stage 3 (moderate); I12.9 Hypertensive chronic kidney disease with stage 1 through stage 4 chronic kidney disease, or unspecified chronic kidney disease; E78.5 Hyperlipidemia, unspecified; M81.0 Age-related osteoporosis without current pathological fracture; Z85.3 Personal history of malignant neoplasm of breast; Z85.528 Personal history of other malignant neoplasm of kidney
CPT/HCPCS: 36415; 80048; 83605; 83735; 84145; 85025; 87040; 96365; 99284; J1644

== ENCOUNTER 2019-12-27 06:14 | Emergency (ER) | payer MEDICARE, OTHER, SELFPAY ==
[2019-12-27 06:21] VITALS: BP 187/84; PULSE 99; RESP 16; TEMP 36.9; O2SAT 97; BMI 37.8
--- NOTE | 2019-12-27 07:23 | ED.LOWEXIN ---
HPI - Extremity Injury (Lower) General Chief Complaint: Extremity Injury, Lower Stated Complaint: cant walk on foot Time Seen by Provider: 12/27/19 06:15 Source: patient Mode of arrival: Ambulatory Limitations: no limitations History of Present Illness HPI Narrative: 69-year-old female nonsmoker with history of hypertension presents with her younger sister and a chief complaint of recurrence of an episode of her right foot pain. She has had episodes in the past that seemed to be following overuse. She has had x-rays that show no fracture and suggest perhaps an MRI might be indicated at some point. She denies any specific injury. She has no numbness, tingling or weakness. She is concerned because she has a history of lymphedema and cellulitis but states this feels much different, she has no fever, no chills, no nausea and denies any redness. She admits to walking much more than normal yesterday and probably overdoing it complaint: foot injury Onset (ago): hour(s) Type of Injury: other Place: home Severity: moderate Relieving factors: rest Exacerbating factors: weight bearing Other symptoms: none Related Data Home Medications Medication Instructions Recorded Confirmed acetaminophen [Tylenol Extra 500 mg PO Q6H PRN MDD pain 04/02/18 12/02/19 Strength] Previous Rx's Medication Instructions Recorded alendronate 70 mg tablet 70 mg PO QWEEK #12 tab 10/02/19 losartan 50 mg-hydrochlorothiazide 1 tab PO DAILY #90 tab 10/02/19 12.5 mg tablet simvastatin 20 mg tablet 20 mg PO QDAY #90 tab 10/02/19 cephalexin [Keflex] 250 mg PO TID #27 cap 12/03/19 doxycycline hyclate 100 mg PO BID #18 cap 12/03/19 Allergies Allergy/AdvReac Type Severity Reaction Status Date / Time amlodipine Allergy Mild SWELLING Verified 12/02/19 14:57 fentanyl Allergy Mild VOMITING Verified 12/02/19 14:57 neomycin Allergy Mild VOMITING,BLISTERING Verified 12/02/19 14:57 WITH NEOSPORIN oxycodone Allergy Mild VOMITING Verified 12/02/19 14:57 codeine AdvReac Mild VOMITING Verified 12/02/19 14:57 Review of Systems Constitutional Constitutional: Denies chills, Denies fatigue, Denies fever(s), Denies frequent falls, Denies lethargy and Denies weakness Eyes Eyes: Denies change in vision, Denies eye discharge, Denies irritation and Denies loss of vision ENT Ears, Nose, Mouth, and Throat: Denies change in voice, Denies dizziness, Denies neck pain, Denies sore throat and Denies throat swelling Cardiovascular Cardiovascular: Denies chest pain, Denies irregular heart rhythm, Denies lightheadedness, Denies palpitations, Denies dyspnea, Denies dyspnea on exertion and Denies orthopnea Respiratory Respiratory: Denies cough, Denies dyspnea, Denies dyspnea on exertion and Denies wheezing Gastrointestinal Gastrointestinal: Denies abdominal pain, Denies change in bowel habits, Denies diarrhea, Denies nausea and Denies vomiting Genitourinary Genitourinary: Denies hematuria, Denies flank pain, Denies urinary incontinence and Denies urinary urgency Musculoskeletal Musculoskeletal: Denies back pain, Reports limited range of motion, Denies muscle weakness, Denies neck pain, Denies numbness and Denies tingling Integumentary/Breasts Skin/Breast: Denies pruritus, Denies erythema, Denies rash and Denies wounds Neurologic Neurologic: Denies behavioral changes, Denies confusion, Denies dizziness, Denies frequent falls, Denies loss of vision, Denies numbness, Denies tingling and Denies weakness Psychiatric Psychiatric: Denies anxiety, Denies behavioral changes, Denies confusion, Denies depression, Denies homicidal ideation and Denies suicidal ideation Endocrine Endocrine: Denies fatigue, Denies flushing and Denies palpitations Hematologic/Lymphatic Hematologic/Lymphatic: Denies easy bruising Allergic/Immunologic Allergic/Immunologic: Denies urticaria, Denies throat swelling and Denies wheezing Patient History Medical History Breast cancer in female (Inactive) CKD (chronic kidney disease) stage 3, GFR 30-59 ml/min (Acute) Hyperlipidemia (Acute) Hypertension (Acute) Lymphedema of arm (Acute) Osteoporosis (Acute) Post-lymphadenectomy lymphedema of arm (Acute) Renal carcinoma (Acute) Surgical History H/O cataract removal with insertion of prosthetic lens (Acute) H/O ventral hernia repair (Acute) History of nephrectomy Hx of tonsillectomy (Acute) Status post biopsy (08/09/12) Status post breast lumpectomy (08/23/07) Family History Father Cancer Heart disease Hypertension Hyperlipidemia Mother Heart disease Hypertension Sister Age: 70 Hypertension Hyperlipidemia Grandmother Cancer Social History household members: family occupational status: unemployed Smoking Status: Never smoker alcohol intake: never Smoking Status: Never smoker Substance Use Type: does not use Exam Narrative Exam Narrative: GEN: AOx3 and in mild distress EYES: Pupils are equal, round, and reactive to light and accommodation. Extraoccular muscles are intact bilaterally. There is no subconjunctival hemorrhage or exudate. CHEST: Lungs are clear to auscultation bilaterally and free of wheezes, rales, or rhonchi. Heart rate is regular rhythm, there are no murmurs, clicks, rubs, or gallops. There is no chest wall tenderness. ABD: Abdomen is soft and nontender. There is no guarding or rebound. Bowel sounds are normal in all 4 quadrants. There is no mass or organomegaly. EXT: Full painless ROM of all extremities with no loss of sensation or strength. SKIN: Warm, pink, and dry. No erythema or rash Initial Vital Signs Initial Vital Signs: Vital Signs Temperature 98.5 F 12/27/19 06:21 Pulse Rate 99 H 12/27/19 06:21 Respiratory Rate 16 12/27/19 06:21 Blood Pressure 187/84 H 12/27/19 06:21 Pulse Oximetry 97 12/27/19 06:21 Course Vital Signs Vital signs: Vital Signs - 8 hr 12/27/19 06:21 Temperature 98.5 F Pulse Rate 99 H Respiratory Rate 16 Blood Pressure 187/84 H Pulse Oximetry 97 Discharge Plan Departure Patient Disposition: Home Clinical Impression: Acute pain of right foot Discharge Date/Time: 12/27/19 06:33 Instructions: DI for Foot Pain Activity Restrictions/Additional Instructions: *You have been diagnosed with [right foot pain, most likely a flare-up of arthritis secondary to overuse] *What to do: *Take medications as directed *Follow up with your primary care provider in 2-3 days, call for an appointment. Let them know you were seen in the Emergency Department and that we ask that you be seen in follow up *Return to ER if you should have any new, worsening or concerning symptoms Prescriptions: No Action losartan-hydrochlorothiazide 50-12.5 mg tablet 1 tab PO DAILY Qty: 90 RF: 2 alendronate 70 mg tablet 70 mg PO QWEEK Qty: 12 RF: 2 simvastatin 20 mg tablet 20 mg PO QDAY Qty: 90 RF: 2 acetaminophen [Tylenol Extra Strength] 500 mg Tablet 500 mg PO Q6H MDD pain PRN (Reason: pain) RF: 0 cephalexin [Keflex] 250 mg capsule 250 mg PO TID Qty: 27 RF: 0 doxycycline hyclate 100 mg capsule 100 mg PO BID Qty: 18 RF: 0 Referrals: Bernardo Geiger MD [Primary Care Provider] -
== END 2019-12-27 06:33 | disposition home or self-care (01) ==
PROVIDERS: Emergency Provider Emergency Medicine; PCP Family Medicine
DX: M79.671 Pain in right foot (principal)
CPT/HCPCS: 99281

== ENCOUNTER → 2020-01-10 08:51 | Outpatient (CLI) | payer MEDICARE, OTHER, SELFPAY ==
--- NOTE | 2020-01-10 08:52 | DI.MRI.S_ITS ---
PROCEDURE: MR FOOT RT WO CON INDICATIONS: Foot pain TECHNIQUE: Noncontrast sagittal T1 spin echo and T2 fast spin echo with fat saturation, long-axis T1 spin echo and T2 fast spin echo with fat saturation, short-axis T1 spin echo and T2 fast spin echo with fat saturation through the forefoot. COMPARISON: [facility], CR, XR ANKLE RT MIN 3V, 07/10/2019, 8:15. FINDINGS: Image quality: Excellent. Bones and joints: No bone marrow contusions or metatarsal stress fractures. The sesamoid bones appear in expected positions, without internal edema. Diffuse midfoot degeneration with sclerosis and spurring. There is also mild subchondral marrow edema. There is also mildly prominent edema present within the fourth metatarsal base although no discrete fracture line is seen. This could be from increased biomechanical stress versus occult stress fracture Soft tissues: The visualized plantar foot muscles demonstrate normal signal and bulk. Visualized flexor and extensor tendons appear intact, without tenosynovitis. The distal insertions of the peroneus brevis and longus tendons appear intact. The principal Lisfranc ligament appears intact. No soft tissue ganglion cysts or bursal fluid collections. Sagittal images demonstrate no evidence for plantar plate tears. IMPRESSION: Diffuse midfoot joint degeneration, sclerosis and spurring. The distribution of disease raises the possibility of neuropathic arthropathy. Mildly prominent marrow edema present within the fourth metatarsal base probably from chronic increased biomechanical stress/overuse or degenerative, however cannot entirely exclude occult stress fracture and if necessary, this can further assessed with dedicated foot radiographs depending on level of clinical suspicion. Dictated by: Jesse Mccallum M.D. on 01/10/2020 at 10:21 Approved by: Jesse Mccallum M.D. on 01/10/2020 at 10:43
== END ==
PROVIDERS: PCP Family Medicine; Referring Provider Family Medicine; Visit Provider Family Medicine
DX: M79.671 Pain in right foot (principal); M19.071 Primary osteoarthritis, right ankle and foot
CPT/HCPCS: 73718

== ENCOUNTER → 2020-02-05 08:27 | Outpatient (CLI) | payer MEDICARE, OTHER, SELFPAY ==
--- NOTE | 2020-02-05 | DI.MG.S_ITS ---
BILATERAL DIGITAL SCREENING MAMMOGRAM 3D/2D WITH CAD POST LUMPECTOMY: 02/05/2020 CLINICAL: Routine screening. Personal history of right breast cancer. Family history of breast cancer. Comparison is made to exams dated: 11/22/2017 mammogram, 11/08/2016 mammogram, and 11/05/2015 mammogram - [facility]. The tissue of both breasts is heterogeneously dense. This may lower the sensitivity of mammography. Current study was also evaluated with a Computer Aided Detection (CAD) system. There are benign calcifications in both breasts. There also are benign post operative findings in the right breast. No significant masses, calcifications, or other findings are seen in either breast. There has been no significant interval change. IMPRESSION: There is no mammographic evidence of malignancy. A 1 year screening mammogram is recommended. This exam was interpreted at Station ID: [id number]. NOTE: For mammograms, a report in lay terms will be sent to the patient. Approximately 15% of breast malignancies will not be visualized mammographically. In the management of a palpable breast mass, a negative mammogram must not discourage biopsy of a clinically suspicious lesion. Electronically Signed By: Maggi faust/catherine:02/05/2020 10:24:19 copy to: FREDA ANVARRO letter sent: Normal Exam ACR BI-RADS Category 2: Benign Finding(s) 3342F
== END ==
PROVIDERS: PCP Family Medicine; Referring Provider Family Medicine; Visit Provider Family Medicine
DX: Z12.31 Encounter for screening mammogram for malignant neoplasm of breast (principal); Z85.3 Personal history of malignant neoplasm of breast; Z80.3 Family history of malignant neoplasm of breast
CPT/HCPCS: 77063; 77067

== ENCOUNTER → 2020-07-07 07:29 | Outpatient (CLI) | payer MEDICARE, OTHER, SELFPAY ==
[2020-07-07 08:41] LABS: Cholesterol 162 mg/dL (140-199); HDL Cholesterol 57 mg/dL (40-60); LDL Cholesterol Calculated 78 mg/dL (<100); Triglycerides 137 mg/dL (35-150)
[2020-07-07 08:42] LABS: Hemoglobin A1C% w Est Avg Glu 6.2 % (4.0-6.0)
[2020-07-07 09:23] LABS: Vitamin D 25 Hydroxy (D3) 34.2 ng/mL (30.0-100.0)
[2020-07-07 09:39] LABS: Thyroid Stimulating Hormone 1.64 uIU/mL (0.47-4.68)
== END ==
PROVIDERS: PCP Family Medicine; Referring Provider Family Medicine; Visit Provider Family Medicine
DX: E78.2 Mixed hyperlipidemia (principal); R73.9 Hyperglycemia, unspecified
CPT/HCPCS: 36415; 80061; 82306; 83036; 84443

== ENCOUNTER → 2020-09-11 14:03 | Outpatient (CLI) | payer MEDICARE, OTHER, SELFPAY ==
[2020-09-11] MEDS: COVID-19 VACC #1, MRNA(MOD) 100 MCG/0.5 ML VIAL IM (14:08)
== END ==
PROVIDERS: Family Provider Family Medicine; PCP Family Medicine; Visit Provider Internal Medicine
DX: Z23 Encounter for immunization (principal)
CPT/HCPCS: 0011A; 91301

== ENCOUNTER 2020-10-07 08:15 | Outpatient (RCR) | payer MEDICARE, OTHER, SELFPAY ==
--- NOTE | 2020-08-24 14:12 | PT.OIE ---
Current Diagnoses Lymphedema, not elsewhere classified (08/24/20) Past Medical History (Last Reviewed 08/15/20 @ 08:06 by EMIGDIO Casillas) Breast cancer in female CKD (chronic kidney disease) stage 3, GFR 30-59 ml/min Hyperlipidemia Hypertension Lymphedema of arm Osteoporosis Post-lymphadenectomy lymphedema of arm Renal carcinoma Past Surgical History (Last Reviewed 08/15/20 @ 08:06 by EMIGDIO Casillas) H/O cataract removal with insertion of prosthetic lens H/O ventral hernia repair History of nephrectomy Hx of tonsillectomy Status post biopsy (08/09/12) Status post breast lumpectomy (08/23/07) Visit Care Team Role Provider Type Rene Kline DO Primary Care Provider Physician Specialty: [facility] Practice Address: [address] [place] [address] Email: Bernardo Geiger MD Attending Provider Physician Family Provider Referring Provider Specialty: [facility] Practice Address: [address] [place] [id number] Email: [email or web address] Physical Therapy Initial Evaluation PT-OP-A Visit Information Start: 08/22/20 16:52 Freq: Status: Active Protocol: Document 08/24/20 08:18 SAK (Rec: 08/24/20 11:17 SAK [id number]) Out-Patient Physical Therapy Visit Information Visit Information Visit Type Initial Evaluation Visit Start Time 08:15 Visit Stop Time 09:35 Total Visit Minutes 80 Visit Number 1 Number of MATTRESS FINISHER Visits 0 Evaluation Information Evaluation Date 08/24/20 Precautions Precautions history breast cancer PT-OP-B Current Condition Start: 08/22/20 16:52 Freq: Status: Active Protocol: Document 08/24/20 08:18 SAK (Rec: 08/24/20 09:40 SAK [id number]) Current Condition History of Current Condition Onset Date November 2019 Current Complaints increased lymphedema right UE. History of Current Condition right sided breast cancer treated with lumpectomy. followed by chemo and radiation. Reports onset of lymphedema 1 year after diagnosis. Had PT for lymphedema for 12 years, then discontinued to insurance issues. Had cellulitis November 2019 including overnight hospitalization, possibly due to so much hand washing. No prior cellulitis. Has prescription for new sleeve and glove, currently can't wear usual sleeves due to increase size of right arm. Patient previously saw Bev Calderon for PT for lymphedema . Patient continues to wrap her arm at night, wearing old sleeves and gauntlets which are too large. Can't wear compression garments she wore immediately prior to cellulitis due to being too small. Hasn't tried wrapping her right UE during the day. Prior Treatments and Tests Mammogram recently; negative. Patient reports she can't lay supine due to vertigo. Prior PT for vertigo was painful to her. Treatment Goals Patient/Caregiver Goals Reduce lymphedema right UE, obtain new compression garments as needed. Prior Functional Status Baseline Function- ADL's Independent Baseline Function- Mobility Independent Baseline Function- Work/School retired Current Functional Impairments (Reported) Functional Limitations- ADL's right UE more heavy Functional Limitations- Recreation/ more difficult with right UE Hobbies heavy Personal Factors Other Personal Factors That May Effect PMH: kidney cancer, right Therapy/Recovery kidney removed, right hip fracture Hypertension Vitamin D deficiency PT-OP-C Subjective Start: 08/22/20 16:52 Freq: Status: Active Protocol: Document 08/24/20 08:18 [facility] (Rec: 08/24/20 11:17 [facility] [id number]) Patient Questionnaires Lymphedema Life Impact Score Lymphedema Score 18 PT-OP-H Neuro Start: 08/22/20 16:52 Freq: Status: Active Protocol: Document 08/24/20 08:18 SAK (Rec: 08/24/20 11:17 [facility] [id number]) Sensation Evaluation Gross Sensation Gross Sensation WNL PT-OP-J Posture/Palpation/Skin Start: 08/22/20 16:52 Freq: Status: Active Protocol: Document 08/24/20 08:18 [facility] (Rec: 08/24/20 11:17 [facility] [id number]) Posture Evaluation Position Sitting Head/C-Spine Posture Forward Head T-Spine Posture Increased Kyphosis Shoulder Posture (L) Rounded,(R) Rounded Scapula Posture (L) Protracted,(R) Protracted Arm Posture (L) Internally Rotated,(R) Internally Rotated Skin Assessment Other Assessments Skin Assessment Comments Skin intact but taut on right UE. Moderate fibrosis in right forearm, none palpable in right upper extremity. PT-OP-K Range of Motion Start: 08/22/20 16:52 Freq: Status: Active Protocol: Document 08/24/20 08:18 [facility] (Rec: 08/24/20 11:17 [facility] [id number]) Cervical Spine Range of Motion Cervical Spine Active Degrees Testing Position Sitting ROM Limitations Soft Tissue Tightness Comments Mild decrease all motions Shoulder Goniometric Range of Motion Shoulder Right Active Flexion 164 Extension 10 External Rotation at 45 degrees 65 Abduction Internal Rotation Behind Back (text) L1 Left Active Shoulder ROM WFL Yes Shoulder ROM Limitations Shoulder ROM Limitations Soft Tissue Tightness Comments moderate pec tightness bilaterally, right greater than left PT-OP-N Lymphedema Start: 08/22/20 16:52 Freq: Status: Active Protocol: Document 08/24/20 08:18 [facility] (Rec: 08/24/20 11:17 [facility] [id number]) Lymphedema Measurements Upper Extremity Circumference Measurements Right Affected MCP 19.4 cm Dorsum of Hand 21.9 cm Wrist 19 cm 5 cm From Wrist Crease 24.1 cm 10 cm From Wrist Crease 28 cm 15 cm From Wrist Crease 30.6 cm 20 cm From Wrist Crease 32.9 cm 25 cm From Wrist Crease 34.4 cm 30 cm From Wrist Crease 36.5 cm 35 cm From Wrist Crease 38 cm 40 cm From Wrist Crease 40.8 cm Axilla 45.6 cm Left Unaffected MCP 18.4 cm Dorsum of Hand 19.3 cm Wrist 16.4 cm 5 cm From Wrist Crease 19.3 cm 10 cm From Wrist Crease 23.2 cm 15 cm From Wrist Crease 25.7 cm 20 cm From Wrist Crease 27.5 cm 25 cm From Wrist Crease 29.3 cm 30 cm From Wrist Crease 32 cm 35 cm From Wrist Crease 35.2 cm 40 cm From Wrist Crease 37.7 cm Axilla 42.3 cm Comments Lymphedema Comments No redness or increased warmth noted right UE. Moderate fibrosis right forearm noted. PT-OP-Q Treatments Start: 08/22/20 16:52 Freq: Status: Active Protocol: Document 08/24/20 08:18 [facility] (Rec: 08/24/20 11:17 [facility] [id number]) Lymphedema Treatment Lymphedema Wrapping Body Location right UE Materials Tricofix, Artiflex, Channel foam, Comprilan (4 rolls) Other skin care provided with application of Cetaphil prior to wrapping Compression Garment Assessment Compression Garment Assessment Details patient wearing poor fitting compression sleeve and gauntlet; to large providing poor compression. PT-OP-T Assessment and Plan Start: 08/22/20 16:52 Freq: Status: Active Protocol: Document 08/24/20 08:18 [facility] (Rec: 08/24/20 11:17 [facility] [id number]) Physical Therapy Assessment Goals Four Impairment postural impairment and soft tissue tightness anterior shoulders and chest Machine Lay Out Worker Goal (LTG) Patient to demonstrate improved posture and soft tissue mobility anterior shoulders and chest to assist with lymphatic flow and reduction of lymphedema LTG Duration 11/22/20 Three Impairment Lymphedema life impact scale 18% Machine Lay Out Worker Goal (LTG) Decrease Lymphedema life impact scale to no greater than 8% as evidence of improved function and quality of life LTG Duration 11/22/20 Two Impairment knowledge deficit current lymphedema care Machine Lay Out Worker Goal (LTG) Patient to demonstrate good understanding and compliance with all aspects of self management for lymphedema to include skin care, self massage, lymphedema wrapping, and lymphedema exercises, as well as appropriate fit and care of compression garments. LTG Duration 11/22/20 One Impairment Lymphedema right UE STG Duration 09/07/20 Machine Lay Out Worker Goal (LTG) Decrease lymphedema right UE to stable level (no increase or decrease greater than 1 cm over the course of 1 week). Patient will have correct- fitting compression garments for lymphedema management. LTG Duration 11/22/20 Assessment Summary Assessment Patient presents with function -limiting lymphedema right UE, exacerbation caused by cellulitis. Evaluation revealed deficits in self- wrapping techniques and understanding of appropriate use of compression garments and wrapping. Following evaluation, lymphedema wrapping performed to patient' s right UE uncluding channel foam in forearm, Artiflex, and Comprilan, discussing technique and rationale. Patient demonstrated good understanding of updated techniques she has not been performing based on prior instruction. Feel she will benefit from skilled PT to help her reduce her lymphedema , be instructed in updated self-management techniques, and help her obtain any new compression garments she needs at this time. Patient is highly motivated and appropriate for PT. Physical Therapy Plan Frequency and Duration Frequency of Treatment 20 visits Duration of Treatment 12 weeks Plan of Care Start Date 08/24/20 Plan of Care End Date 11/22/20 Therapeutic Interventions Therapeutic Interventions Home Exercise Program, Lymphedema Management,Manual Therapy,Patient/Caregiver Education,Self-Care/Home Management,Taping,Therapeutic Exercises Next Visit Focus/Plan Next Note Type Treatment Note Next Visit Plan Assess response to lymphedema wrapping performed today, continue patient education. Instruct/review patient in self-massage techniques and lymphedema exercises.
--- NOTE | 2020-08-24 14:12 | PT.OPPOC ---
Physical, Occupational & Speech Therapy At [facility] Current Diagnoses Lymphedema, not elsewhere classified (08/24/20) Visit Care Team Role Provider Type Rene Kline DO Primary Care Provider Physician Specialty: [facility] Practice Address: [address] [place] [address] Email: Bernardo Geiger MD Attending Provider Physician Family Provider Referring Provider Specialty: [facility] Address: [address] [place] [address], [phone] Email: [email or web address] Plan Of Care PT-OP-T Assessment and Plan Start: 08/22/20 16:52 Freq: Status: Active Protocol: Document 08/24/20 08:18 SAK (Rec: 08/24/20 11:17 SAK [id number]) Physical Therapy Assessment Goals Four Impairment postural impairment and soft tissue tightness anterior shoulders and chest Delicatessen Store Manager Goal (LTG) Patient to demonstrate improved posture and soft tissue mobility anterior shoulders and chest to assist with lymphatic flow and reduction of lymphedema LTG Duration 11/22/20 Three Impairment Lymphedema life impact scale 18% Delicatessen Store Manager Goal (LTG) Decrease Lymphedema life impact scale to no greater than 8% as evidence of improved function and quality of life LTG Duration 11/22/20 Two Impairment knowledge deficit current lymphedema care Delicatessen Store Manager Goal (LTG) Patient to demonstrate good understanding and compliance with all aspects of self management for lymphedema to include skin care, self massage, lymphedema wrapping, and lymphedema exercises, as well as appropriate fit and care of compression garments. LTG Duration 11/22/20 One Impairment Lymphedema right UE STG Duration 09/07/20 [facility] Goal (LTG) Decrease lymphedema right UE to stable level (no increase or decrease greater than 1 cm over the course of 1 week). Patient will have correct- fitting compression garments for lymphedema management. LTG Duration 11/22/20 Assessment Summary Assessment Patient presents with function -limiting lymphedema right UE, exacerbation caused by cellulitis. Evaluation revealed deficits in self- wrapping techniques and understanding of appropriate use of compression garments and wrapping. Following evaluation, lymphedema wrapping performed to patient' s right UE uncluding channel foam in forearm, Artiflex, and Comprilan, discussing technique and rationale. Patient demonstrated good understanding of updated techniques she has not been performing based on prior instruction. Feel she will benefit from skilled PT to help her reduce her lymphedema , be instructed in updated self-management techniques, and help her obtain any new compression garments she needs at this time. Patient is highly motivated and appropriate for PT. Physical Therapy Plan Frequency and Duration Frequency of Treatment 20 visits Duration of Treatment 12 weeks Plan of Care Start Date 08/24/20 Plan of Care End Date 11/22/20 Therapeutic Interventions Therapeutic Interventions Home Exercise Program, Lymphedema Management,Manual Therapy,Patient/Caregiver Education,Self-Care/Home Management,Taping,Therapeutic Exercises Next Visit Focus/Plan Next Note Type Treatment Note Next Visit Plan Assess response to lymphedema wrapping performed today, continue patient education. Instruct/review patient in self-massage techniques and lymphedema exercises. Plan of Care Dates Plan of Care Start Date 08/24/20 Plan of Care End Date 11/22/20 Electronically Signed by: Duyen Montesinos, PT 08/24/20 0613 Please Sign and Return: I have reviewed this Plan of Care and certify that the skilled therapy services above are required to meet the patient?s needs. Physician Signature Date Printed Name and Credentials Clinical Instructor Signature Printed Name and Credentials
--- NOTE | 2020-08-25 12:11 | PT.OTN ---
Current Diagnoses Lymphedema, not elsewhere classified (08/25/20) Physical Therapy Treatment Note PT-OP-A Visit Information Start: 08/22/20 16:52 Freq: Status: Active Protocol: Document 08/25/20 08:17 SAK (Rec: 08/25/20 08:38 SAK [id number]) Out-Patient Physical Therapy Visit Information Visit Information Visit Type Treatment Note Visit Note Brought old sleeves, tolerated wrapping all night. Visit Start Time 08:20 Visit Stop Time 09:50 Total Visit Minutes 90 Visit Number 2 Precautions Precautions history breast cancer PT-OP-B Current Condition Start: 08/22/20 16:52 Freq: Status: Active Protocol: Document 08/25/20 08:17 SAK (Rec: 08/25/20 08:38 SAK [id number]) Current Condition History of Current Condition Onset Date November 2019 Current Complaints increased lymphedema right UE. History of Current Condition right sided breast cancer treated with lumpectomy. followed by chemo and radiation. Reports onset of lymphedema 1 year after diagnosis. Had PT for lymphedema for 12 years, then discontinued to insurance issues. Had cellulitis November 2019 including overnight hospitalization, possibly due to so much hand washing. No prior cellulitis. Has prescription for new sleeve and glove, currently can't wear usual sleeves due to increase size of right arm. Patient previously saw Bev Calderon for PT for lymphedema . Patient continues to wrap her arm at night, wearing old sleeves and gauntlets which are too large. Can't wear compression garments she wore immediately prior to cellulitis due to being too small. Hasn't tried wrapping her right UE during the day. Prior Treatments and Tests Mammogram recently; negative. Patient reports she can't lay supine due to vertigo. Prior PT for vertigo was painful to her. Treatment Goals Patient/Caregiver Goals Reduce lymphedema right UE, obtain new compression garments as needed. Personal Factors Other Personal Factors That May Effect PMH: kidney cancer, right Therapy/Recovery kidney removed, right hip fracture Hypertension Vitamin D deficiency PT-OP-C Subjective Start: 08/22/20 16:52 Freq: Status: Active Protocol: Document 08/25/20 12:03 SAK (Rec: 08/25/20 12:11 SAK [id number]) OP-PT Subjective Patient Comments Patient Comments Patient tolerated overnight lymphedema bandaging well. Brought her gauntlets and sleeves for PT to evaluate. All are custom. PT-OP-H Neuro Start: 08/22/20 16:52 Freq: Status: Active Protocol: Document 08/24/20 08:18 SAK (Rec: 08/24/20 11:17 SAK [id number]) Sensation Evaluation Gross Sensation Gross Sensation WNL PT-OP-J Posture/Palpation/Skin Start: 08/22/20 16:52 Freq: Status: Active Protocol: Document 08/24/20 08:18 SAK (Rec: 08/24/20 11:17 SAK [id number]) Posture Evaluation Position Sitting Head/C-Spine Posture Forward Head T-Spine Posture Increased Kyphosis Shoulder Posture (L) Rounded,(R) Rounded Scapula Posture (L) Protracted,(R) Protracted Arm Posture (L) Internally Rotated,(R) Internally Rotated Skin Assessment Other Assessments Skin Assessment Comments Skin intact but taut on right UE. Moderate fibrosis in right forearm, none palpable in right upper extremity. PT-OP-K Range of Motion Start: 08/22/20 16:52 Freq: Status: Active Protocol: Document 08/24/20 08:18 SAK (Rec: 08/24/20 11:17 SAK [id number]) Cervical Spine Range of Motion Cervical Spine Active Degrees Testing Position Sitting ROM Limitations Soft Tissue Tightness Comments Mild decrease all motions Shoulder Goniometric Range of Motion Shoulder Right Active Flexion 164 Extension 10 External Rotation at 45 degrees 65 Abduction Internal Rotation Behind Back (text) L1 Left Active Shoulder ROM WFL Yes Shoulder ROM Limitations Shoulder ROM Limitations Soft Tissue Tightness Comments moderate pec tightness bilaterally, right greater than left PT-OP-N Lymphedema Start: 08/22/20 16:52 Freq: Status: Active Protocol: Document 08/25/20 08:17 [facility] (Rec: 08/25/20 12:11 SAK [id number]) Lymphedema Measurements Upper Extremity Circumference Measurements Right Affected MCP 19.4 cm Dorsum of Hand 20.2 cm Wrist 18.7 cm 5 cm From Wrist Crease 23.5 cm 10 cm From Wrist Crease 27.7 cm 15 cm From Wrist Crease 30.6 cm 20 cm From Wrist Crease 32.2 cm 25 cm From Wrist Crease 34.4 cm 30 cm From Wrist Crease 36 cm 35 cm From Wrist Crease 37 cm 40 cm From Wrist Crease 40.7 cm Axilla 45.8 cm PT-OP-Q Treatments Start: 08/22/20 16:52 Freq: Status: Active Protocol: Document 08/25/20 08:17 [facility] (Rec: 08/25/20 12:11 [facility] [id number]) Cardio Equipment Recumbent Stepper (Sci-Fit) Duration (Minutes) 7 Resistance 1 Other to facilitate lymphatic flow Lymphedema Treatment Lymphedema Wrapping Body Location right UE Materials Tricofix, Artiflex, Channel foam forearm, black foam dorsum of handComprilan (4 rolls: 6,8,8,10) Other skin care provided with application of Cetaphil prior to bandaging Compression Garment Assessment Compression Garment Assessment Details Not ready for trial old compression sleeve. Patient Education Lymphedema Prevention written information provided Lymphedema Precautions written information provided Self Manual Lymphatic Drainage initiated instruction Sequential Lymphedema Exercises instructed and issued written handout PT-OP-T Assessment and Plan Start: 08/22/20 16:52 Freq: Status: Active Protocol: Document 08/25/20 08:17 [facility] (Rec: 08/25/20 08:38 [facility] [id number]) Physical Therapy Assessment Goals Four Impairment postural impairment and soft tissue tightness anterior shoulders and chest Half-Way Goal (LTG) Patient to demonstrate improved posture and soft tissue mobility anterior shoulders and chest to assist with lymphatic flow and reduction of lymphedema LTG Duration 11/22/20 Three Impairment Lymphedema life impact scale 18% Half-Way Goal (LTG) Decrease Lymphedema life impact scale to no greater than 8% as evidence of improved function and quality of life LTG Duration 11/22/20 Two Impairment knowledge deficit current lymphedema care Business And Financial Counsel Goal (LTG) Patient to demonstrate good understanding and compliance with all aspects of self management for lymphedema to include skin care, self massage, lymphedema wrapping, and lymphedema exercises, as well as appropriate fit and care of compression garments. LTG Duration 11/22/20 One Impairment Lymphedema right UE STG Duration 09/07/20 Business And Financial Counsel Goal (LTG) Decrease lymphedema right UE to stable level (no increase or decrease greater than 1 cm over the course of 1 week). Patient will have correct- fitting compression garments for lymphedema management. LTG Duration 11/22/20 Assessment Summary Assessment Patient able to leave lymphedema bandages on all night. Mild decrease in most circumferential measurements today. Patient demonstrated fair understanding of lymphedema exercises and lymphatic massage but will need further education and review. Added further channel foam to forearm and black foam to dorsum of hand. Physical Therapy Plan Frequency and Duration Frequency of Treatment 20 visits Duration of Treatment 12 weeks Plan of Care Start Date 08/24/20 Plan of Care End Date 11/22/20 Therapeutic Interventions Therapeutic Interventions Home Exercise Program, Lymphedema Management,Manual Therapy,Patient/Caregiver Education,Self-Care/Home Management,Taping,Therapeutic Exercises Next Visit Focus/Plan Next Note Type Treatment Note Next Visit Plan Continue patient education regarding bandaging, lymphedema exercises and self- massage.
--- NOTE | 2020-08-26 09:33 | PT.OTN ---
Current Diagnoses Lymphedema, not elsewhere classified (08/26/20) Physical Therapy Treatment Note PT-OP-A Visit Information Start: 08/22/20 16:52 Freq: Status: Active Protocol: Document 08/26/20 09:23 [facility] (Rec: 08/26/20 09:33 [facility] [id number]) Out-Patient Physical Therapy Visit Information Visit Information Visit Type Treatment Note Visit Start Time 08:15 Visit Stop Time 09:28 Total Visit Minutes 73 Visit Number 3 Precautions Precautions history breast cancer PT-OP-B Current Condition Start: 08/22/20 16:52 Freq: Status: Active Protocol: Document 08/26/20 09:23 [facility] (Rec: 08/26/20 09:33 [facility] [id number]) Current Condition History of Current Condition Onset Date November 2019 Current Complaints increased lymphedema right UE. History of Current Condition right sided breast cancer treated with lumpectomy. followed by chemo and radiation. Reports onset of lymphedema 1 year after diagnosis. Had PT for lymphedema for 12 years, then discontinued to insurance issues. Had cellulitis November 2019 including overnight hospitalization, possibly due to so much hand washing. No prior cellulitis. Has prescription for new sleeve and glove, currently can't wear usual sleeves due to increase size of right arm. Patient previously saw Bev Calderon for PT for lymphedema . Patient continues to wrap her arm at night, wearing old sleeves and gauntlets which are too large. Can't wear compression garments she wore immediately prior to cellulitis due to being too small. Hasn't tried wrapping her right UE during the day. Prior Treatments and Tests Mammogram recently; negative. Patient reports she can't lay supine due to vertigo. Prior PT for vertigo was painful to her. Personal Factors Other Personal Factors That May Effect PMH: kidney cancer, right Therapy/Recovery kidney removed, right hip fracture Hypertension Vitamin D deficiency PT-OP-C Subjective Start: 08/22/20 16:52 Freq: Status: Active Protocol: Document 08/26/20 09:23 [facility] (Rec: 08/26/20 09:33 [facility] [id number]) OP-PT Subjective Patient Comments Patient Comments No new c/o. Tolerated lymphedema bandaging all night . PT-OP-H Neuro Start: 08/22/20 16:52 Freq: Status: Active Protocol: Document 08/24/20 08:18 [facility] (Rec: 08/24/20 11:17 [facility] [id number]) Sensation Evaluation Gross Sensation Gross Sensation WNL PT-OP-J Posture/Palpation/Skin Start: 08/22/20 16:52 Freq: Status: Active Protocol: Document 08/24/20 08:18 [facility] (Rec: 08/24/20 11:17 [facility] [id number]) Posture Evaluation Position Sitting Head/C-Spine Posture Forward Head T-Spine Posture Increased Kyphosis Shoulder Posture (L) Rounded,(R) Rounded Scapula Posture (L) Protracted,(R) Protracted Arm Posture (L) Internally Rotated,(R) Internally Rotated Skin Assessment Other Assessments Skin Assessment Comments Skin intact but taut on right UE. Moderate fibrosis in right forearm, none palpable in right upper extremity. PT-OP-K Range of Motion Start: 08/22/20 16:52 Freq: Status: Active Protocol: Document 08/24/20 08:18 [facility] (Rec: 08/24/20 11:17 [facility] [id number]) Cervical Spine Range of Motion Cervical Spine Active Degrees Testing Position Sitting ROM Limitations Soft Tissue Tightness Comments Mild decrease all motions Shoulder Goniometric Range of Motion Shoulder Right Active Flexion 164 Extension 10 External Rotation at 45 degrees 65 Abduction Internal Rotation Behind Back (text) L1 Left Active Shoulder ROM WFL Yes Shoulder ROM Limitations Shoulder ROM Limitations Soft Tissue Tightness Comments moderate pec tightness bilaterally, right greater than left PT-OP-N Lymphedema Start: 08/22/20 16:52 Freq: Status: Active Protocol: Document 08/26/20 09:23 [facility] (Rec: 08/26/20 09:33 [facility] [id number]) Lymphedema Measurements Upper Extremity Circumference Measurements Right Affected MCP 19.5 cm Dorsum of Hand 20.5 cm Wrist 18.3 cm 5 cm From Wrist Crease 22.4 cm 10 cm From Wrist Crease 27.2 cm 15 cm From Wrist Crease 29.2 cm 20 cm From Wrist Crease 31.7 cm 25 cm From Wrist Crease 34 cm 30 cm From Wrist Crease 36.3 cm 35 cm From Wrist Crease 36.6 cm 40 cm From Wrist Crease 41.9 cm Axilla 47.2 cm Comments Lymphedema Comments Increased softness of soft tissue right forearm PT-OP-Q Treatments Start: 08/22/20 16:52 Freq: Status: Active Protocol: Document 08/26/20 09:23 [facility] (Rec: 08/26/20 09:33 [facility] [id number]) Cardio Equipment Recumbent Stepper (Sci-Fit) Duration (Minutes) 8 Resistance 1 Other to facilitate lymphatic flow after lymphedema bandaging Lymphedema Treatment Lymphedema Wrapping Body Location right UE Materials Tricofix, Artiflex, Channel foam forearm, black foam dorsum of handComprilan (4 rolls: 6,8,8,10) Other skin care provided with application of Cetaphil prior to bandaging Compression Garment Assessment Compression Garment Assessment Details Not ready for trial old compression sleeve. Other Other Patient reports no questions on issued handouts. PT-OP-T Assessment and Plan Start: 08/22/20 16:52 Freq: Status: Active Protocol: Document 08/26/20 09:23 [facility] (Rec: 08/26/20 09:33 [facility] [id number]) Physical Therapy Assessment Goals Four Impairment postural impairment and soft tissue tightness anterior shoulders and chest Electrotype Servicer Goal (LTG) Patient to demonstrate improved posture and soft tissue mobility anterior shoulders and chest to assist with lymphatic flow and reduction of lymphedema LTG Duration 11/22/20 Three Impairment Lymphedema life impact scale 18% Electrotype Servicer Goal (LTG) Decrease Lymphedema life impact scale to no greater than 8% as evidence of improved function and quality of life LTG Duration 11/22/20 Two Impairment knowledge deficit current lymphedema care [facility] Goal (LTG) Patient to demonstrate good understanding and compliance with all aspects of self management for lymphedema to include skin care, self massage, lymphedema wrapping, and lymphedema exercises, as well as appropriate fit and care of compression garments. LTG Duration 11/22/20 One Impairment Lymphedema right UE STG Duration 09/07/20 Electrotype Servicer Goal (LTG) Decrease lymphedema right UE to stable level (no increase or decrease greater than 1 cm over the course of 1 week). Patient will have correct- fitting compression garments for lymphedema management. LTG Duration 11/22/20 Assessment Summary Assessment hand measurements the same or larger, same proximal right UE , but forearm and distal upper arm showed reduction in circumferential measurements. Increased tension on fingers and hands. Physical Therapy Plan Frequency and Duration Frequency of Treatment 20 visits Duration of Treatment 12 weeks Plan of Care Start Date 08/24/20 Plan of Care End Date 11/22/20 Therapeutic Interventions Therapeutic Interventions Home Exercise Program, Lymphedema Management,Manual Therapy,Patient/Caregiver Education,Self-Care/Home Management,Taping,Therapeutic Exercises Next Visit Focus/Plan Next Note Type Treatment Note Next Visit Plan Continue lymphedema management . Add scapular squeezes and open book exercises for improved posture and soft tissue mobility. Possibly try old sleeve and gauntlet
--- NOTE | 2020-08-27 16:43 | PT.OTN ---
Current Diagnoses Lymphedema, not elsewhere classified (08/27/20) Physical Therapy Treatment Note PT-OP-A Visit Information Start: 08/22/20 16:52 Freq: Status: Active Protocol: Document 08/27/20 08:11 [facility] (Rec: 08/27/20 08:34 [facility] [id number]) Out-Patient Physical Therapy Visit Information Visit Information Visit Type Treatment Note Visit Start Time 08:15 Visit Stop Time 09:40 Total Visit Minutes 85 Visit Number 4 Precautions Precautions history breast cancer PT-OP-B Current Condition Start: 08/22/20 16:52 Freq: Status: Active Protocol: Document 08/27/20 08:11 [facility] (Rec: 08/27/20 08:34 [facility] [id number]) Current Condition History of Current Condition Onset Date November 2019 Current Complaints increased lymphedema right UE. History of Current Condition right sided breast cancer treated with lumpectomy. followed by chemo and radiation. Reports onset of lymphedema 1 year after diagnosis. Had PT for lymphedema for 12 years, then discontinued to insurance issues. Had cellulitis November 2019 including overnight hospitalization, possibly due to so much hand washing. No prior cellulitis. Has prescription for new sleeve and glove, currently can't wear usual sleeves due to increase size of right arm. Patient previously saw Bev Calderon for PT for lymphedema . Patient continues to wrap her arm at night, wearing old sleeves and gauntlets which are too large. Can't wear compression garments she wore immediately prior to cellulitis due to being too small. Hasn't tried wrapping her right UE during the day. Prior Treatments and Tests Mammogram recently; negative. Patient reports she can't lay supine due to vertigo. Prior PT for vertigo was painful to her. Treatment Goals Patient/Caregiver Goals Reduce lymphedema right UE, obtain new compression garments as needed. Personal Factors Other Personal Factors That May Effect PMH: kidney cancer, right Therapy/Recovery kidney removed, right hip fracture Hypertension Vitamin D deficiency vertigo; can't lay flat PT-OP-C Subjective Start: 08/22/20 16:52 Freq: Status: Active Protocol: Document 08/27/20 08:11 [facility] (Rec: 08/27/20 08:34 [facility] [id number]) OP-PT Subjective Patient Comments Patient Comments No new c/o. I need to wrap my hand more extensively like you do. Patient Reported Progress Improving PT-OP-H Neuro Start: 08/22/20 16:52 Freq: Status: Active Protocol: Document 08/24/20 08:18 [facility] (Rec: 08/24/20 11:17 [facility] [id number]) Sensation Evaluation Gross Sensation Gross Sensation WNL PT-OP-J Posture/Palpation/Skin Start: 08/22/20 16:52 Freq: Status: Active Protocol: Document 08/24/20 08:18 [facility] (Rec: 08/24/20 11:17 [facility] [id number]) Posture Evaluation Position Sitting Head/C-Spine Posture Forward Head T-Spine Posture Increased Kyphosis Shoulder Posture (L) Rounded,(R) Rounded Scapula Posture (L) Protracted,(R) Protracted Arm Posture (L) Internally Rotated,(R) Internally Rotated Skin Assessment Other Assessments Skin Assessment Comments Skin intact but taut on right UE. Moderate fibrosis in right forearm, none palpable in right upper extremity. PT-OP-K Range of Motion Start: 08/22/20 16:52 Freq: Status: Active Protocol: Document 08/24/20 08:18 [facility] (Rec: 08/24/20 11:17 [facility] [id number]) Cervical Spine Range of Motion Cervical Spine Active Degrees Testing Position Sitting ROM Limitations Soft Tissue Tightness Comments Mild decrease all motions Shoulder Goniometric Range of Motion Shoulder Right Active Flexion 164 Extension 10 External Rotation at 45 degrees 65 Abduction Internal Rotation Behind Back (text) L1 Left Active Shoulder ROM WFL Yes Shoulder ROM Limitations Shoulder ROM Limitations Soft Tissue Tightness Comments moderate pec tightness bilaterally, right greater than left PT-OP-N Lymphedema Start: 08/22/20 16:52 Freq: Status: Active Protocol: Document 08/27/20 08:11 [facility] (Rec: 08/27/20 16:41 [facility] [id number]) Lymphedema Measurements Upper Extremity Circumference Measurements Right Affected MCP 19.4 cm Dorsum of Hand 20.4 cm Wrist 18.1 cm 5 cm From Wrist Crease 22.6 cm 10 cm From Wrist Crease 27 cm 15 cm From Wrist Crease 29.9 cm 20 cm From Wrist Crease 32 cm 25 cm From Wrist Crease 35 cm 30 cm From Wrist Crease 36.3 cm 35 cm From Wrist Crease 38.2 cm 40 cm From Wrist Crease 41.4 cm Axilla 48.2 cm Comments Lymphedema Comments Increased softness of soft tissue right forearm PT-OP-Q Treatments Start: 08/22/20 16:52 Freq: Status: Active Protocol: Document 08/27/20 08:11 [facility] (Rec: 08/27/20 16:41 [facility] [id number]) Cardio Equipment Recumbent Stepper (Sci-Fit) Duration (Minutes) 9 Resistance 1 Other to facilitate lymphatic flow after lymphedema bandaging Lymphedema Treatment Lymphedema Wrapping Body Location right UE Materials Tricofix, Artiflex, Channel foam forearm, black foam dorsum of hand Comprilan (4 rolls: 6,8,8,10) Other skin care provided with patient washing arm with soap and water than PT application of Cetaphil prior to bandaging Sequential Lymphedema Exercises Comments REview next session Compression Garment Assessment Compression Garment Assessment Details Application largest of patient 's compression sleeve and gauntlet. PT-OP-T Assessment and Plan Start: 08/22/20 16:52 Freq: Status: Active Protocol: Document 08/27/20 08:11 [facility] (Rec: 08/27/20 08:34 [facility] [id number]) Physical Therapy Assessment Goals Four Impairment postural impairment and soft tissue tightness anterior shoulders and chest Asphalt Tamping Machine Operator Goal (LTG) Patient to demonstrate improved posture and soft tissue mobility anterior shoulders and chest to assist with lymphatic flow and reduction of lymphedema LTG Duration 11/22/20 Three Impairment Lymphedema life impact scale 18% Care Home Goal (LTG) Decrease Lymphedema life impact scale to no greater than 8% as evidence of improved function and quality of life LTG Duration 11/22/20 Two Impairment knowledge deficit current lymphedema care Care Home Goal (LTG) Patient to demonstrate good understanding and compliance with all aspects of self management for lymphedema to include skin care, self massage, lymphedema wrapping, and lymphedema exercises, as well as appropriate fit and care of compression garments. LTG Duration 11/22/20 One Impairment Lymphedema right UE STG Duration 09/07/20 Asphalt Tamping Machine Operator Goal (LTG) Decrease lymphedema right UE to stable level (no increase or decrease greater than 1 cm over the course of 1 week). Patient will have correct- fitting compression garments for lymphedema management. LTG Duration 11/22/20 Assessment Summary Assessment With help patient able to don largest compression sleeve and gauntlet today, needs continued wrapping for reduction. Good compliance to wearing bandages 24 hours. Channel foam helpful for softening of tissue fibrosis in forearm. No reduction in circumference last night as with prior treatments this week. Patient encouraged to continue to wrap, try compression sleeve and gauntlet as feels able until next PT session next week. Patient compliant to lymphedema exercises. Physical Therapy Plan Frequency and Duration Frequency of Treatment 20 visits Duration of Treatment 12 weeks Plan of Care Start Date 08/24/20 Plan of Care End Date 11/22/20 Therapeutic Interventions Therapeutic Interventions Home Exercise Program, Lymphedema Management,Manual Therapy,Patient/Caregiver Education,Self-Care/Home Management,Taping,Therapeutic Exercises Next Visit Focus/Plan Next Note Type Treatment Note Next Visit Plan Continue lymphedema management with MLD, lymphedema bandaging, ther ex including review of sequential lymphedema exercises. Show night garment sample.
--- NOTE | 2020-09-02 12:22 | PT.OTN ---
Current Diagnoses Lymphedema, not elsewhere classified (09/02/20) Physical Therapy Treatment Note PT-OP-A Visit Information Start: 08/22/20 16:52 Freq: Status: Active Protocol: Document 09/02/20 12:08 [facility] (Rec: 09/02/20 12:22 [facility] [id number]) Out-Patient Physical Therapy Visit Information Visit Information Visit Type Treatment Note Visit Start Time 10:30 Visit Stop Time 11:45 Total Visit Minutes 75 Visit Number 5 Evaluation Information Evaluation Date 08/24/20 Precautions Precautions history breast cancer PT-OP-B Current Condition Start: 08/22/20 16:52 Freq: Status: Active Protocol: Document 08/27/20 08:11 [facility] (Rec: 08/27/20 08:34 [facility] [id number]) Current Condition History of Current Condition Onset Date November 2019 Current Complaints increased lymphedema right UE. History of Current Condition right sided breast cancer treated with lumpectomy. followed by chemo and radiation. Reports onset of lymphedema 1 year after diagnosis. Had PT for lymphedema for 12 years, then discontinued to insurance issues. Had cellulitis November 2019 including overnight hospitalization, possibly due to so much hand washing. No prior cellulitis. Has prescription for new sleeve and glove, currently can't wear usual sleeves due to increase size of right arm. Patient previously saw Bev Calderon for PT for lymphedema . Patient continues to wrap her arm at night, wearing old sleeves and gauntlets which are too large. Can't wear compression garments she wore immediately prior to cellulitis due to being too small. Hasn't tried wrapping her right UE during the day. Prior Treatments and Tests Mammogram recently; negative. Patient reports she can't lay supine due to vertigo. Prior PT for vertigo was painful to her. Treatment Goals Patient/Caregiver Goals Reduce lymphedema right UE, obtain new compression garments as needed. Personal Factors Other Personal Factors That May Effect PMH: kidney cancer, right Therapy/Recovery kidney removed, right hip fracture Hypertension Vitamin D deficiency vertigo; can't lay flat PT-OP-C Subjective Start: 08/22/20 16:52 Freq: Status: Active Protocol: Document 09/02/20 12:08 [facility] (Rec: 09/02/20 12:22 [facility] [id number]) OP-PT Subjective Patient Comments Patient Comments Pt arrives self-wrapped. I need to focus more on the fingers, I know. PT-OP-H Neuro Start: 08/22/20 16:52 Freq: Status: Active Protocol: Document 08/24/20 08:18 [facility] (Rec: 08/24/20 11:17 [facility] [id number]) Sensation Evaluation Gross Sensation Gross Sensation WNL PT-OP-J Posture/Palpation/Skin Start: 08/22/20 16:52 Freq: Status: Active Protocol: Document 08/24/20 08:18 [facility] (Rec: 08/24/20 11:17 [facility] [id number]) Posture Evaluation Position Sitting Head/C-Spine Posture Forward Head T-Spine Posture Increased Kyphosis Shoulder Posture (L) Rounded,(R) Rounded Scapula Posture (L) Protracted,(R) Protracted Arm Posture (L) Internally Rotated,(R) Internally Rotated Skin Assessment Other Assessments Skin Assessment Comments Skin intact but taut on right UE. Moderate fibrosis in right forearm, none palpable in right upper extremity. PT-OP-K Range of Motion Start: 08/22/20 16:52 Freq: Status: Active Protocol: Document 08/24/20 08:18 [facility] (Rec: 08/24/20 11:17 [facility] [id number]) Cervical Spine Range of Motion Cervical Spine Active Degrees Testing Position Sitting ROM Limitations Soft Tissue Tightness Comments Mild decrease all motions Shoulder Goniometric Range of Motion Shoulder Right Active Flexion 164 Extension 10 External Rotation at 45 degrees 65 Abduction Internal Rotation Behind Back (text) L1 Left Active Shoulder ROM WFL Yes Shoulder ROM Limitations Shoulder ROM Limitations Soft Tissue Tightness Comments moderate pec tightness bilaterally, right greater than left PT-OP-N Lymphedema Start: 08/22/20 16:52 Freq: Status: Active Protocol: Document 09/02/20 12:08 [facility] (Rec: 09/02/20 12:22 [facility] [id number]) Lymphedema Measurements Upper Extremity Circumference Measurements Right Affected MCP 19.3 cm Dorsum of Hand 20.5 cm Wrist 18.3 cm 5 cm From Wrist Crease 23 cm 10 cm From Wrist Crease 27 cm 15 cm From Wrist Crease 32 cm 20 cm From Wrist Crease 36 cm 25 cm From Wrist Crease 35 cm 30 cm From Wrist Crease 37 cm 35 cm From Wrist Crease 39.1 cm 40 cm From Wrist Crease 43.1 cm Axilla 48 cm PT-OP-Q Treatments Start: 08/22/20 16:52 Freq: Status: Active Protocol: Document 09/02/20 12:08 [facility] (Rec: 09/02/20 12:22 [facility] [id number]) Lymphedema Treatment Manual Lymphatic Drainage Location right UE Duration 25 min Comments In semi-reclined position due to pt intolerance of supine. Pt tolerated work and re-work of AAA and BAUDILIO, RUE MLD prior to wrapping. Lymphedema Wrapping Body Location right UE Materials Tricofix, Artiflex, Channel foam forearm, black foam dorsum of hand Comprilan (4 rolls: 6,8,8,10) Other skin care provided with patient washing arm with soap and water than PT application of Cetaphil prior to bandaging Sequential Lymphedema Exercises Comments REview next session PT-OP-T Assessment and Plan Start: 08/22/20 16:52 Freq: Status: Active Protocol: Document 09/02/20 12:08 [facility] (Rec: 09/02/20 12:22 [facility] [id number]) Physical Therapy Assessment Goals Four Impairment postural impairment and soft tissue tightness anterior shoulders and chest [employer] S[employer] Goal (LTG) Patient to demonstrate improved posture and soft tissue mobility anterior shoulders and chest to assist with lymphatic flow and reduction of lymphedema LTG Duration 11/22/20 Three Impairment Lymphedema life impact scale 18% Mail S[employer] Goal (LTG) Decrease Lymphedema life impact scale to no greater than 8% as evidence of improved function and quality of life LTG Duration 11/22/20 Two Impairment knowledge deficit current lymphedema care [employer] S[employer] Goal (LTG) Patient to demonstrate good understanding and compliance with all aspects of self management for lymphedema to include skin care, self massage, lymphedema wrapping, and lymphedema exercises, as well as appropriate fit and care of compression garments. LTG Duration 11/22/20 One Impairment Lymphedema right UE STG Duration 09/07/20 Mail Sorter [employer] Delivery Goal (LTG) Decrease lymphedema right UE to stable level (no increase or decrease greater than 1 cm over the course of 1 week). Patient will have correct- fitting compression garments for lymphedema management. LTG Duration 11/22/20 Assessment Summary Assessment Increase in limb measurements today. Continued use of channel foam to promote softening of fibrosis. Pt reports self-wrapping compliance. Needs continued wrapping for reduction. Physical Therapy Plan Frequency and Duration Frequency of Treatment 20 visits Duration of Treatment 12 weeks Plan of Care Start Date 08/24/20 Plan of Care End Date 11/22/20 Therapeutic Interventions Therapeutic Interventions Home Exercise Program, Lymphedema Management,Manual Therapy,Patient/Caregiver Education,Self-Care/Home Management,Taping,Therapeutic Exercises Next Visit Focus/Plan Next Note Type Treatment Note Next Visit Plan Continue lymphedema management with MLD, lymphedema bandaging, ther ex including review of sequential lymphedema exercises. Show night garment sample.
--- NOTE | 2020-09-07 09:27 | PT.OTN ---
Current Diagnoses Lymphedema, not elsewhere classified (09/07/20) Physical Therapy Treatment Note PT-OP-A Visit Information Start: 08/22/20 16:52 Freq: Status: Active Protocol: Document 09/07/20 08:14 SAK (Rec: 09/07/20 08:30 SAK [id number]) Out-Patient Physical Therapy Visit Information Visit Information Visit Type Treatment Note Visit Start Time 08:15 Visit Stop Time 09:30 Total Visit Minutes 75 Visit Number 6 Precautions Precautions history breast cancer PT-OP-B Current Condition Start: 08/22/20 16:52 Freq: Status: Active Protocol: Document 08/27/20 08:11 SAK (Rec: 08/27/20 08:34 SAK [id number]) Current Condition History of Current Condition Onset Date November 2019 Current Complaints increased lymphedema right UE. History of Current Condition right sided breast cancer treated with lumpectomy. followed by chemo and radiation. Reports onset of lymphedema 1 year after diagnosis. Had PT for lymphedema for 12 years, then discontinued to insurance issues. Had cellulitis November 2019 including overnight hospitalization, possibly due to so much hand washing. No prior cellulitis. Has prescription for new sleeve and glove, currently can't wear usual sleeves due to increase size of right arm. Patient previously saw Bev Calderon for PT for lymphedema . Patient continues to wrap her arm at night, wearing old sleeves and gauntlets which are too large. Can't wear compression garments she wore immediately prior to cellulitis due to being too small. Hasn't tried wrapping her right UE during the day. Prior Treatments and Tests Mammogram recently; negative. Patient reports she can't lay supine due to vertigo. Prior PT for vertigo was painful to her. Treatment Goals Patient/Caregiver Goals Reduce lymphedema right UE, obtain new compression garments as needed. Personal Factors Other Personal Factors That May Effect PMH: kidney cancer, right Therapy/Recovery kidney removed, right hip fracture Hypertension Vitamin D deficiency vertigo; can't lay flat PT-OP-C Subjective Start: 08/22/20 16:52 Freq: Status: Active Protocol: Document 09/07/20 08:14 SAK (Rec: 09/07/20 08:30 SAK [id number]) OP-PT Subjective Patient Comments Patient Comments Strained her back a few days ago. Getting better. Wapped herself all week. PT-OP-H Neuro Start: 08/22/20 16:52 Freq: Status: Active Protocol: Document 08/24/20 08:18 [facility] (Rec: 08/24/20 11:17 [facility] [id number]) Sensation Evaluation Gross Sensation Gross Sensation WNL PT-OP-J Posture/Palpation/Skin Start: 08/22/20 16:52 Freq: Status: Active Protocol: Document 08/24/20 08:18 [facility] (Rec: 08/24/20 11:17 [facility] [id number]) Posture Evaluation Position Sitting Head/C-Spine Posture Forward Head T-Spine Posture Increased Kyphosis Shoulder Posture (L) Rounded,(R) Rounded Scapula Posture (L) Protracted,(R) Protracted Arm Posture (L) Internally Rotated,(R) Internally Rotated Skin Assessment Other Assessments Skin Assessment Comments Skin intact but taut on right UE. Moderate fibrosis in right forearm, none palpable in right upper extremity. PT-OP-K Range of Motion Start: 08/22/20 16:52 Freq: Status: Active Protocol: Document 08/24/20 08:18 [facility] (Rec: 08/24/20 11:17 [facility] [id number]) Cervical Spine Range of Motion Cervical Spine Active Degrees Testing Position Sitting ROM Limitations Soft Tissue Tightness Comments Mild decrease all motions Shoulder Goniometric Range of Motion Shoulder Right Active Flexion 164 Extension 10 External Rotation at 45 degrees 65 Abduction Internal Rotation Behind Back (text) L1 Left Active Shoulder ROM WFL Yes Shoulder ROM Limitations Shoulder ROM Limitations Soft Tissue Tightness Comments moderate pec tightness bilaterally, right greater than left PT-OP-N Lymphedema Start: 08/22/20 16:52 Freq: Status: Active Protocol: Document 09/07/20 08:14 [facility] (Rec: 09/07/20 09:25 [facility] [id number]) Lymphedema Measurements Upper Extremity Circumference Measurements Right Affected MCP 19.1 cm Dorsum of Hand 20 cm Wrist 20 cm 5 cm From Wrist Crease 22.9 cm 10 cm From Wrist Crease 25.6 cm 15 cm From Wrist Crease 29.4 cm 20 cm From Wrist Crease 32.3 cm 25 cm From Wrist Crease 32.9 cm 30 cm From Wrist Crease 36 cm 35 cm From Wrist Crease 36.8 cm 40 cm From Wrist Crease 40.5 cm Axilla 46.6 cm Comments Lymphedema Comments Decreased fibrosis right forearm PT-OP-Q Treatments Start: 08/22/20 16:52 Freq: Status: Active Protocol: Document 09/07/20 08:14 [facility] (Rec: 09/07/20 08:30 [facility] [id number]) Lymphedema Treatment Manual Lymphatic Drainage Location right UE Duration 25 min Comments In semi-reclined position due to pt intolerance of supine. Pt tolerated work and re-work of AAA and BAUDILIO, RUE MLD prior to wrapping. Lymphedema Wrapping Body Location right UE Materials Tricofix, Artiflex, Channel foam forearm, black foam dorsum of hand Comprilan (4 rolls: 6,8,8,10) Other skin care provided with patient washing arm with soap and water than PT application of Cetaphil prior to bandaging PT-OP-T Assessment and Plan Start: 08/22/20 16:52 Freq: Status: Active Protocol: Document 09/07/20 08:14 [facility] (Rec: 09/07/20 08:30 [facility] [id number]) Physical Therapy Assessment Goals Four Impairment postural impairment and soft tissue tightness anterior shoulders and chest Skilled Nursing Goal (LTG) Patient to demonstrate improved posture and soft tissue mobility anterior shoulders and chest to assist with lymphatic flow and reduction of lymphedema LTG Duration 11/22/20 Three Impairment Lymphedema life impact scale 18% Education Faculty Member Goal (LTG) Decrease Lymphedema life impact scale to no greater than 8% as evidence of improved function and quality of life LTG Duration 11/22/20 Two Impairment knowledge deficit current lymphedema care Skilled Nursing Goal (LTG) Patient to demonstrate good understanding and compliance with all aspects of self management for lymphedema to include skin care, self massage, lymphedema wrapping, and lymphedema exercises, as well as appropriate fit and care of compression garments. LTG Duration 11/22/20 One Impairment Lymphedema right UE STG Duration 09/07/20 Education Faculty Member Goal (LTG) Decrease lymphedema right UE to stable level (no increase or decrease greater than 1 cm over the course of 1 week). Patient will have correct- fitting compression garments for lymphedema management. LTG Duration 11/22/20 Assessment Summary Assessment Decrease in circumferential measurements right UE noted today except for wrist measurement increased with visual increased puffiness, with good softening of fibrosis noted as compared to last time this PT saw patient. Good compliance with self- care. Reviewed need for decrease in pressure as wrap proximally. Physical Therapy Plan Frequency and Duration Frequency of Treatment 20 visits Duration of Treatment 12 weeks Plan of Care Start Date 08/24/20 Plan of Care End Date 11/22/20 Therapeutic Interventions Therapeutic Interventions Home Exercise Program, Lymphedema Management,Manual Therapy,Patient/Caregiver Education,Self-Care/Home Management,Taping,Therapeutic Exercises Next Visit Focus/Plan Next Note Type Treatment Note Next Visit Plan Patient to try wearing old compression sleeve and gauntlet to PT next session.
--- NOTE | 2020-09-08 09:40 | PT.OTN ---
Current Diagnoses Lymphedema, not elsewhere classified (09/08/20) Physical Therapy Treatment Note PT-OP-A Visit Information Start: 08/22/20 16:52 Freq: Status: Active Protocol: Document 09/08/20 08:20 SAK (Rec: 09/08/20 08:33 SAK [id number]) Out-Patient Physical Therapy Visit Information Visit Information Visit Type Treatment Note Visit Start Time 08:15 Visit Stop Time 09:30 Total Visit Minutes 75 Visit Number 7 Precautions Precautions history breast cancer PT-OP-B Current Condition Start: 08/22/20 16:52 Freq: Status: Active Protocol: Document 08/27/20 08:11 SAK (Rec: 08/27/20 08:34 SAK [id number]) Current Condition History of Current Condition Onset Date November 2019 Current Complaints increased lymphedema right UE. History of Current Condition right sided breast cancer treated with lumpectomy. followed by chemo and radiation. Reports onset of lymphedema 1 year after diagnosis. Had PT for lymphedema for 12 years, then discontinued to insurance issues. Had cellulitis November 2019 including overnight hospitalization, possibly due to so much hand washing. No prior cellulitis. Has prescription for new sleeve and glove, currently can't wear usual sleeves due to increase size of right arm. Patient previously saw Bev Calderon for PT for lymphedema . Patient continues to wrap her arm at night, wearing old sleeves and gauntlets which are too large. Can't wear compression garments she wore immediately prior to cellulitis due to being too small. Hasn't tried wrapping her right UE during the day. Prior Treatments and Tests Mammogram recently; negative. Patient reports she can't lay supine due to vertigo. Prior PT for vertigo was painful to her. Treatment Goals Patient/Caregiver Goals Reduce lymphedema right UE, obtain new compression garments as needed. Personal Factors Other Personal Factors That May Effect PMH: kidney cancer, right Therapy/Recovery kidney removed, right hip fracture Hypertension Vitamin D deficiency vertigo; can't lay flat PT-OP-C Subjective Start: 08/22/20 16:52 Freq: Status: Active Protocol: Document 09/08/20 08:20 SAK (Rec: 09/08/20 08:33 SAK [id number]) OP-PT Subjective Patient Comments Patient Comments Patient able to don compression sleeve and gauntlet this am, prefers over lymphedema bandages. PT-OP-H Neuro Start: 08/22/20 16:52 Freq: Status: Active Protocol: Document 08/24/20 08:18 [facility] (Rec: 08/24/20 11:17 [facility] [id number]) Sensation Evaluation Gross Sensation Gross Sensation WNL PT-OP-J Posture/Palpation/Skin Start: 08/22/20 16:52 Freq: Status: Active Protocol: Document 08/24/20 08:18 [facility] (Rec: 08/24/20 11:17 [facility] [id number]) Posture Evaluation Position Sitting Head/C-Spine Posture Forward Head T-Spine Posture Increased Kyphosis Shoulder Posture (L) Rounded,(R) Rounded Scapula Posture (L) Protracted,(R) Protracted Arm Posture (L) Internally Rotated,(R) Internally Rotated Skin Assessment Other Assessments Skin Assessment Comments Skin intact but taut on right UE. Moderate fibrosis in right forearm, none palpable in right upper extremity. PT-OP-K Range of Motion Start: 08/22/20 16:52 Freq: Status: Active Protocol: Document 08/24/20 08:18 [facility] (Rec: 08/24/20 11:17 [facility] [id number]) Cervical Spine Range of Motion Cervical Spine Active Degrees Testing Position Sitting ROM Limitations Soft Tissue Tightness Comments Mild decrease all motions Shoulder Goniometric Range of Motion Shoulder Right Active Flexion 164 Extension 10 External Rotation at 45 degrees 65 Abduction Internal Rotation Behind Back (text) L1 Left Active Shoulder ROM WFL Yes Shoulder ROM Limitations Shoulder ROM Limitations Soft Tissue Tightness Comments moderate pec tightness bilaterally, right greater than left PT-OP-N Lymphedema Start: 08/22/20 16:52 Freq: Status: Active Protocol: Document 09/08/20 08:20 [facility] (Rec: 09/08/20 09:40 [facility] [id number]) Lymphedema Measurements Upper Extremity Circumference Measurements Right Affected MCP 19.3 cm Dorsum of Hand 20.7 cm Wrist 19.4 cm 5 cm From Wrist Crease 22.4 cm 10 cm From Wrist Crease 26.1 cm 15 cm From Wrist Crease 29 cm 20 cm From Wrist Crease 32.1 cm 25 cm From Wrist Crease 32.2 cm 30 cm From Wrist Crease 36 cm 35 cm From Wrist Crease 39 cm 40 cm From Wrist Crease 40.6 cm Axilla 47 cm PT-OP-Q Treatments Start: 08/22/20 16:52 Freq: Status: Active Protocol: Document 09/08/20 08:20 [facility] (Rec: 09/08/20 09:36 [facility] [id number]) Lymphedema Treatment Manual Lymphatic Drainage Location right UE Duration 25 min Comments In semi-reclined position due to pt intolerance of supine. Pt tolerated work and re-work of AAA and BAUDILIO, RUE MLD prior to wrapping. Lymphedema Wrapping Body Location right UE Materials Tricofix, Artiflex, Channel foam forearm, black foam dorsum of hand Comprilan (4 rolls: 6,8,8,10) Other skin care provided with patient washing arm with soap and water than PT application of Cetaphil prior to bandaging Sequential Lymphedema Exercises Comments brief verbal review PT-OP-T Assessment and Plan Start: 08/22/20 16:52 Freq: Status: Active Protocol: Document 09/08/20 08:20 [facility] (Rec: 09/08/20 08:33 [facility] [id number]) Physical Therapy Assessment Goals Four Impairment postural impairment and soft tissue tightness anterior shoulders and chest Licensed Loan Officer Assistant Goal (LTG) Patient to demonstrate improved posture and soft tissue mobility anterior shoulders and chest to assist with lymphatic flow and reduction of lymphedema LTG Duration 11/22/20 Three Impairment Lymphedema life impact scale 18% Detention Goal (LTG) Decrease Lymphedema life impact scale to no greater than 8% as evidence of improved function and quality of life LTG Duration 11/22/20 Two Impairment knowledge deficit current lymphedema care Detention Goal (LTG) Patient to demonstrate good understanding and compliance with all aspects of self management for lymphedema to include skin care, self massage, lymphedema wrapping, and lymphedema exercises, as well as appropriate fit and care of compression garments. LTG Duration 11/22/20 One Impairment Lymphedema right UE STG Duration 09/07/20 Licensed Loan Officer Assistant Goal (LTG) Decrease lymphedema right UE to stable level (no increase or decrease greater than 1 cm over the course of 1 week). Patient will have correct- fitting compression garments for lymphedema management. LTG Duration 11/22/20 Assessment Summary Assessment variable changes in circumferential measurements right UE. Patient wearing compression sleeve and gauntlet today with good fit once donned; donning difficult but patient shown [employer] as option for assistance with donning at home, will consider purchasing. Physical Therapy Plan Next Visit Focus/Plan Next Note Type Treatment Note Next Visit Plan circumferential measurements, determine if ok to continue wearing sleeve and gauntlet or if further bandaging required . Continue lymphedema managment.
--- NOTE | 2020-09-09 09:20 | PT.OTN ---
Current Diagnoses Lymphedema, not elsewhere classified (09/09/20) Physical Therapy Treatment Note PT-OP-A Visit Information Start: 08/22/20 16:52 Freq: Status: Active Protocol: Document 09/09/20 08:31 SAK (Rec: 09/09/20 08:35 [facility] [id number]) Out-Patient Physical Therapy Visit Information Visit Information Visit Type Treatment Note Visit Start Time 08:15 Total Visit Minutes 75 Visit Number 8 Precautions Precautions history breast cancer PT-OP-B Current Condition Start: 08/22/20 16:52 Freq: Status: Active Protocol: Document 08/27/20 08:11 SAK (Rec: 08/27/20 08:34 SAK [id number]) Current Condition History of Current Condition Onset Date November 2019 Current Complaints increased lymphedema right UE. History of Current Condition right sided breast cancer treated with lumpectomy. followed by chemo and radiation. Reports onset of lymphedema 1 year after diagnosis. Had PT for lymphedema for 12 years, then discontinued to insurance issues. Had cellulitis November 2019 including overnight hospitalization, possibly due to so much hand washing. No prior cellulitis. Has prescription for new sleeve and glove, currently can't wear usual sleeves due to increase size of right arm. Patient previously saw Bev Calderon for PT for lymphedema . Patient continues to wrap her arm at night, wearing old sleeves and gauntlets which are too large. Can't wear compression garments she wore immediately prior to cellulitis due to being too small. Hasn't tried wrapping her right UE during the day. Prior Treatments and Tests Mammogram recently; negative. Patient reports she can't lay supine due to vertigo. Prior PT for vertigo was painful to her. Treatment Goals Patient/Caregiver Goals Reduce lymphedema right UE, obtain new compression garments as needed. Personal Factors Other Personal Factors That May Effect PMH: kidney cancer, right Therapy/Recovery kidney removed, right hip fracture Hypertension Vitamin D deficiency vertigo; can't lay flat PT-OP-C Subjective Start: 08/22/20 16:52 Freq: Status: Active Protocol: Document 09/09/20 08:31 SAK (Rec: 09/09/20 08:35 SAK [id number]) OP-PT Subjective Patient Comments Patient Comments Wrapped overnight, donned sleeve this am. States she feels she got the sleeve higher to cover the upper arm better. No new c/o. PT-OP-H Neuro Start: 08/22/20 16:52 Freq: Status: Active Protocol: Document 08/24/20 08:18 [facility] (Rec: 08/24/20 11:17 [facility] [id number]) Sensation Evaluation Gross Sensation Gross Sensation WNL PT-OP-J Posture/Palpation/Skin Start: 08/22/20 16:52 Freq: Status: Active Protocol: Document 08/24/20 08:18 [facility] (Rec: 08/24/20 11:17 [facility] [id number]) Posture Evaluation Position Sitting Head/C-Spine Posture Forward Head T-Spine Posture Increased Kyphosis Shoulder Posture (L) Rounded,(R) Rounded Scapula Posture (L) Protracted,(R) Protracted Arm Posture (L) Internally Rotated,(R) Internally Rotated Skin Assessment Other Assessments Skin Assessment Comments Skin intact but taut on right UE. Moderate fibrosis in right forearm, none palpable in right upper extremity. PT-OP-K Range of Motion Start: 08/22/20 16:52 Freq: Status: Active Protocol: Document 08/24/20 08:18 [facility] (Rec: 08/24/20 11:17 [facility] [id number]) Cervical Spine Range of Motion Cervical Spine Active Degrees Testing Position Sitting ROM Limitations Soft Tissue Tightness Comments Mild decrease all motions Shoulder Goniometric Range of Motion Shoulder Right Active Flexion 164 Extension 10 External Rotation at 45 degrees 65 Abduction Internal Rotation Behind Back (text) L1 Left Active Shoulder ROM WFL Yes Shoulder ROM Limitations Shoulder ROM Limitations Soft Tissue Tightness Comments moderate pec tightness bilaterally, right greater than left PT-OP-N Lymphedema Start: 08/22/20 16:52 Freq: Status: Active Protocol: Document 09/09/20 08:31 [facility] (Rec: 09/09/20 09:19 [facility] [id number]) Lymphedema Measurements Upper Extremity Circumference Measurements Right Affected MCP 19.3 cm Dorsum of Hand 20.6 cm Wrist 18.7 cm 5 cm From Wrist Crease 21.7 cm 10 cm From Wrist Crease 26 cm 15 cm From Wrist Crease 28.9 cm 20 cm From Wrist Crease 32 cm 25 cm From Wrist Crease 32.2 cm 30 cm From Wrist Crease 36.2 cm 35 cm From Wrist Crease 37.1 cm 40 cm From Wrist Crease 42.4 cm Axilla 42 cm PT-OP-Q Treatments Start: 08/22/20 16:52 Freq: Status: Active Protocol: Document 09/09/20 08:31 [facility] (Rec: 09/09/20 08:35 [facility] [id number]) Lymphedema Treatment Manual Lymphatic Drainage Location right UE Duration 25 min Comments In semi-reclined position due to pt intolerance of supine. Pt tolerated work and re-work of AAA and BAUDILIO, RUE MLD prior to wrapping. Lymphedema Wrapping Body Location right UE Materials sleeve and galuntlet; assisted patient Other skin care provided with patient washing arm with soap and water than PT application of Cetaphil prior to bandaging Sequential Lymphedema Exercises Comments brief verbal review Compression Garment Assessment Compression Garment Assessment Details Application largest of patient 's compression sleeve and gauntlet. Patient Education Lymphedema Prevention written information provided Lymphedema Precautions written information provided Self Manual Lymphatic Drainage initiated instruction Sequential Lymphedema Exercises instructed and issued written handout Other Other Patient reports no questions on issued handouts. PT-OP-T Assessment and Plan Start: 08/22/20 16:52 Freq: Status: Active Protocol: Document 09/09/20 08:31 [facility] (Rec: 09/09/20 08:35 [facility] [id number]) Physical Therapy Assessment Goals Four Impairment postural impairment and soft tissue tightness anterior shoulders and chest Electronic Warfare Linguist Goal (LTG) Patient to demonstrate improved posture and soft tissue mobility anterior shoulders and chest to assist with lymphatic flow and reduction of lymphedema LTG Duration 11/22/20 Three Impairment Lymphedema life impact scale 18% Long-Term Goal (LTG) Decrease Lymphedema life impact scale to no greater than 8% as evidence of improved function and quality of life LTG Duration 11/22/20 Two Impairment knowledge deficit current lymphedema care Electronic Warfare Linguist Goal (LTG) Patient to demonstrate good understanding and compliance with all aspects of self management for lymphedema to include skin care, self massage, lymphedema wrapping, and lymphedema exercises, as well as appropriate fit and care of compression garments. LTG Duration 11/22/20 One Impairment Lymphedema right UE STG Duration 09/07/20 Long-Term Goal (LTG) Decrease lymphedema right UE to stable level (no increase or decrease greater than 1 cm over the course of 1 week). Patient will have correct- fitting compression garments for lymphedema management. LTG Duration 11/22/20 Progress Towards Goals Progress Towards Goals Progressing Toward Goals Assessment Summary Assessment Patient measurements stabilizing, able to wear sleeve and gauntlet, compliant with self-care. Have cancelled most scheduled appointments, keeping 2 follow -ups; in 1 week, then approx 3 -4 weeks. Physical Therapy Plan Frequency and Duration Frequency of Treatment 20 visits Duration of Treatment 12 weeks Plan of Care Start Date 08/24/20 Plan of Care End Date 11/22/20 Therapeutic Interventions Therapeutic Interventions Home Exercise Program, Lymphedema Management,Manual Therapy,Patient/Caregiver Education,Self-Care/Home Management,Taping,Therapeutic Exercises Next Visit Focus/Plan Next Note Type Treatment Note Next Visit Plan See in 1 week, then 1 follow- up in 3-4 weeks.
--- NOTE | 2020-09-16 09:34 | PT.OTN ---
Current Diagnoses Lymphedema, not elsewhere classified (09/16/20) Physical Therapy Treatment Note PT-OP-A Visit Information Start: 08/22/20 16:52 Freq: Status: Active Protocol: Document 09/16/20 08:12 SAK (Rec: 09/16/20 08:21 SAK [id number]) Out-Patient Physical Therapy Visit Information Visit Information Visit Type Treatment Note Visit Start Time 08:15 Visit Stop Time 09:35 Total Visit Minutes 80 Visit Number 9 Precautions Precautions history breast cancer PT-OP-B Current Condition Start: 08/22/20 16:52 Freq: Status: Active Protocol: Document 08/27/20 08:11 SAK (Rec: 08/27/20 08:34 SAK [id number]) Current Condition History of Current Condition Onset Date November 2019 Current Complaints increased lymphedema right UE. History of Current Condition right sided breast cancer treated with lumpectomy. followed by chemo and radiation. Reports onset of lymphedema 1 year after diagnosis. Had PT for lymphedema for 12 years, then discontinued to insurance issues. Had cellulitis November 2019 including overnight hospitalization, possibly due to so much hand washing. No prior cellulitis. Has prescription for new sleeve and glove, currently can't wear usual sleeves due to increase size of right arm. Patient previously saw Bev Calderon for PT for lymphedema . Patient continues to wrap her arm at night, wearing old sleeves and gauntlets which are too large. Can't wear compression garments she wore immediately prior to cellulitis due to being too small. Hasn't tried wrapping her right UE during the day. Prior Treatments and Tests Mammogram recently; negative. Patient reports she can't lay supine due to vertigo. Prior PT for vertigo was painful to her. Treatment Goals Patient/Caregiver Goals Reduce lymphedema right UE, obtain new compression garments as needed. Personal Factors Other Personal Factors That May Effect PMH: kidney cancer, right Therapy/Recovery kidney removed, right hip fracture Hypertension Vitamin D deficiency vertigo; can't lay flat PT-OP-C Subjective Start: 08/22/20 16:52 Freq: Status: Active Protocol: Document 09/16/20 08:12 SAK (Rec: 09/16/20 08:21 SAK [id number]) OP-PT Subjective Patient Comments Patient Comments Got Slippee for donning compression sleeve, feels like I'm doing good. No new c/o. PT-OP-H Neuro Start: 08/22/20 16:52 Freq: Status: Active Protocol: Document 08/24/20 08:18 SAK (Rec: 08/24/20 11:17 [facility] [id number]) Sensation Evaluation Gross Sensation Gross Sensation WNL PT-OP-J Posture/Palpation/Skin Start: 08/22/20 16:52 Freq: Status: Active Protocol: Document 08/24/20 08:18 [facility] (Rec: 08/24/20 11:17 [facility] [id number]) Posture Evaluation Position Sitting Head/C-Spine Posture Forward Head T-Spine Posture Increased Kyphosis Shoulder Posture (L) Rounded,(R) Rounded Scapula Posture (L) Protracted,(R) Protracted Arm Posture (L) Internally Rotated,(R) Internally Rotated Skin Assessment Other Assessments Skin Assessment Comments Skin intact but taut on right UE. Moderate fibrosis in right forearm, none palpable in right upper extremity. PT-OP-K Range of Motion Start: 08/22/20 16:52 Freq: Status: Active Protocol: Document 08/24/20 08:18 [facility] (Rec: 08/24/20 11:17 [facility] [id number]) Cervical Spine Range of Motion Cervical Spine Active Degrees Testing Position Sitting ROM Limitations Soft Tissue Tightness Comments Mild decrease all motions Shoulder Goniometric Range of Motion Shoulder Right Active Flexion 164 Extension 10 External Rotation at 45 degrees 65 Abduction Internal Rotation Behind Back (text) L1 Left Active Shoulder ROM WFL Yes Shoulder ROM Limitations Shoulder ROM Limitations Soft Tissue Tightness Comments moderate pec tightness bilaterally, right greater than left PT-OP-N Lymphedema Start: 08/22/20 16:52 Freq: Status: Active Protocol: Document 09/16/20 09:22 [facility] (Rec: 09/16/20 09:25 [facility] [id number]) Lymphedema Measurements Upper Extremity Circumference Measurements Right Affected MCP 19.2 cm Dorsum of Hand 20.1 cm Wrist 18.4 cm 5 cm From Wrist Crease 22.3 cm 10 cm From Wrist Crease 26.1 cm 15 cm From Wrist Crease 29.5 cm 20 cm From Wrist Crease 32.3 cm 25 cm From Wrist Crease 34 cm 30 cm From Wrist Crease 36.2 cm 35 cm From Wrist Crease 37 cm 40 cm From Wrist Crease 40 cm 45 cm From Wrist Crease 41.9 cm PT-OP-Q Treatments Start: 08/22/20 16:52 Freq: Status: Active Protocol: Document 09/16/20 08:12 [facility] (Rec: 09/16/20 08:21 SAK [id number]) Lymphedema Treatment Manual Lymphatic Drainage Location right UE Duration 25 min Comments In semi-reclined position due to pt intolerance of supine. Pt tolerated work and re-work of AAA and BAUDILIO, RUE MLD prior to wrapping. Lymphedema Wrapping Body Location right UE Materials sleeve and galuntlet;patient demonstrated her use of the Slippee device, cues for getting sleeve up arm a little higher before removing Slippe . Other skin care provided with patient washing arm with soap and water than PT application of Cetaphil prior to bandaging Compression Garment Assessment Compression Garment Assessment Details Application largest of patient 's compression sleeve and gauntlet. Patient Education Lymphedema Prevention written information provided Lymphedema Precautions written information provided Compression Garments Shown Solaris Tribute adjustable night wrap sample. Other Patient instructed to wrap at night slightly more firm on forearm. PT-OP-T Assessment and Plan Start: 08/22/20 16:52 Freq: Status: Active Protocol: Document 09/16/20 08:12 [facility] (Rec: 09/16/20 08:21 [facility] [id number]) Physical Therapy Assessment Goals Four Impairment postural impairment and soft tissue tightness anterior shoulders and chest Customer Retention Specialist Goal (LTG) Patient to demonstrate improved posture and soft tissue mobility anterior shoulders and chest to assist with lymphatic flow and reduction of lymphedema LTG Duration 11/22/20 Three Impairment Lymphedema life impact scale 18% Longterm Goal (LTG) Decrease Lymphedema life impact scale to no greater than 8% as evidence of improved function and quality of life LTG Duration 11/22/20 Two Impairment knowledge deficit current lymphedema care Customer Retention Specialist Goal (LTG) Patient to demonstrate good understanding and compliance with all aspects of self management for lymphedema to include skin care, self massage, lymphedema wrapping, and lymphedema exercises, as well as appropriate fit and care of compression garments. LTG Duration 11/22/20 One Impairment Lymphedema right UE STG Duration 09/07/20 Customer Retention Specialist Goal (LTG) Decrease lymphedema right UE to stable level (no increase or decrease greater than 1 cm over the course of 1 week). Patient will have correct- fitting compression garments for lymphedema management. LTG Duration 11/22/20 Progress Towards Goals Progress Towards Goals Progressing Toward Goals Assessment Summary Assessment With trial Tribute night wrap; patient able to fit into medium hand and wrist, but requires large forearm and upper arm. Forearm measurements increased small amount but no increased warmth or redness, hand and upper arm mesurements decreased; instructed to try sl. increased compression in forearm and not overdo with lifting with right UE. Should be able to be discharged after next PT visit. Physical Therapy Plan Frequency and Duration Frequency of Treatment 20 visits Duration of Treatment 12 weeks Plan of Care Start Date 08/24/20 Plan of Care End Date 11/22/20 Therapeutic Interventions Therapeutic Interventions Home Exercise Program, Lymphedema Management,Manual Therapy,Patient/Caregiver Education,Self-Care/Home Management,Taping,Therapeutic Exercises Next Visit Focus/Plan Next Note Type Treatment Note Next Visit Plan 1 further follow-up appointment to assure no increase in lymphedema, assess fit of any further compression garments obtained
--- NOTE | 2020-10-07 09:01 | PT.OTN ---
Current Diagnoses Lymphedema, not elsewhere classified (10/07/20) Physical Therapy Treatment Note PT-OP-A Visit Information Start: 08/22/20 16:52 Freq: Status: Active Protocol: Document 10/07/20 08:15 SAK (Rec: 10/07/20 08:22 SAK [id number]) Out-Patient Physical Therapy Visit Information Visit Information Visit Type Treatment Note Visit Start Time 08:15 Visit Stop Time 08:35 Total Visit Minutes 20 Visit Number 10 Number of MARKETING TEAM LEAD Visits 0 Precautions Precautions history breast cancer PT-OP-B Current Condition Start: 08/22/20 16:52 Freq: Status: Active Protocol: Document 08/27/20 08:11 SAK (Rec: 08/27/20 08:34 SAK [id number]) Current Condition History of Current Condition Onset Date November 2019 Current Complaints increased lymphedema right UE. History of Current Condition right sided breast cancer treated with lumpectomy. followed by chemo and radiation. Reports onset of lymphedema 1 year after diagnosis. Had PT for lymphedema for 12 years, then discontinued to insurance issues. Had cellulitis November 2019 including overnight hospitalization, possibly due to so much hand washing. No prior cellulitis. Has prescription for new sleeve and glove, currently can't wear usual sleeves due to increase size of right arm. Patient previously saw Bev Calderon for PT for lymphedema . Patient continues to wrap her arm at night, wearing old sleeves and gauntlets which are too large. Can't wear compression garments she wore immediately prior to cellulitis due to being too small. Hasn't tried wrapping her right UE during the day. Prior Treatments and Tests Mammogram recently; negative. Patient reports she can't lay supine due to vertigo. Prior PT for vertigo was painful to her. Treatment Goals Patient/Caregiver Goals Reduce lymphedema right UE, obtain new compression garments as needed. Personal Factors Other Personal Factors That May Effect PMH: kidney cancer, right Therapy/Recovery kidney removed, right hip fracture Hypertension Vitamin D deficiency vertigo; can't lay flat PT-OP-C Subjective Start: 08/22/20 16:52 Freq: Status: Active Protocol: Document 10/07/20 08:15 SAK (Rec: 10/07/20 09:01 [facility] [id number]) OP-PT Subjective Patient Comments Patient Comments Patient reports prior new sleeve and gauntlet fitting well, using Slippee with good results for donning. Feels comfortable with self-care and discharge today. Frustrated by phone call not being returned by [facility] but will try again, otherwise pursue different fitter as was issued information with several options by this PT. States her arm may be a little more swollen due to shoveling snow for the last few days, but states she wore compression while doing it. Patient Reported Progress Improving PT-OP-H Neuro Start: 08/22/20 16:52 Freq: Status: Active Protocol: Document 08/24/20 08:18 SAK (Rec: 08/24/20 11:17 SAK [id number]) Sensation Evaluation Gross Sensation Gross Sensation WNL PT-OP-J Posture/Palpation/Skin Start: 08/22/20 16:52 Freq: Status: Active Protocol: Document 08/24/20 08:18 SAK (Rec: 08/24/20 11:17 SAK [id number]) Posture Evaluation Position Sitting Head/C-Spine Posture Forward Head T-Spine Posture Increased Kyphosis Shoulder Posture (L) Rounded,(R) Rounded Scapula Posture (L) Protracted,(R) Protracted Arm Posture (L) Internally Rotated,(R) Internally Rotated Skin Assessment Other Assessments Skin Assessment Comments Skin intact but taut on right UE. Moderate fibrosis in right forearm, none palpable in right upper extremity. PT-OP-K Range of Motion Start: 08/22/20 16:52 Freq: Status: Active Protocol: Document 08/24/20 08:18 SAK (Rec: 08/24/20 11:17 [facility] [id number]) Cervical Spine Range of Motion Cervical Spine Active Degrees Testing Position Sitting ROM Limitations Soft Tissue Tightness Comments Mild decrease all motions Shoulder Goniometric Range of Motion Shoulder Right Active Flexion 164 Extension 10 External Rotation at 45 degrees 65 Abduction Internal Rotation Behind Back (text) L1 Left Active Shoulder ROM WFL Yes Shoulder ROM Limitations Shoulder ROM Limitations Soft Tissue Tightness Comments moderate pec tightness bilaterally, right greater than left PT-OP-N Lymphedema Start: 08/22/20 16:52 Freq: Status: Active Protocol: Document 10/07/20 08:15 SAK (Rec: 10/07/20 09:01 [facility] [id number]) Lymphedema Measurements Upper Extremity Circumference Measurements Right Affected MCP 19.4 cm Dorsum of Hand 20.4 cm Wrist 18.4 cm 5 cm From Wrist Crease 22.3 cm 10 cm From Wrist Crease 25.9 cm 15 cm From Wrist Crease 29.6 cm 20 cm From Wrist Crease 31.9 cm 25 cm From Wrist Crease 31.1 cm 30 cm From Wrist Crease 36.4 cm 35 cm From Wrist Crease 37 cm 40 cm From Wrist Crease 39.5 cm Axilla 41.1 cm PT-OP-Q Treatments Start: 08/22/20 16:52 Freq: Status: Active Protocol: Document 10/07/20 08:15 [facility] (Rec: 10/07/20 08:22 [facility] [id number]) Lymphedema Treatment Lymphedema Wrapping Materials sleeve and galuntlet;patient demonstrated her use of the Slippee device, cues for getting sleeve up arm a little higher before removing Slippee or pushing against solid object to brace and pulling up as high as possible on posterior upper arm. Compression Garment Assessment Compression Garment Assessment Details Application largest of patient 's compression sleeve and gauntlet. Patient Education Other Circumferential measurements taken right UE. Patient advised to contact [facility] again. Other Other Patient reports no further questions, just frustration at [facility] not getting back to her. She previously was issued information on other regional compression garment fitters which she prefers over ordering herself online. PT-OP-T Assessment and Plan Start: 08/22/20 16:52 Freq: Status: Active Protocol: Document 10/07/20 08:15 [facility] (Rec: 10/07/20 08:22 [facility] [id number]) Physical Therapy Assessment Goals Four Impairment postural impairment and soft tissue tightness anterior shoulders and chest Skilled Nursing Goal (LTG) Patient to demonstrate improved posture and soft tissue mobility anterior shoulders and chest to assist with lymphatic flow and reduction of lymphedema LTG Duration Goal met Three Impairment Lymphedema life impact scale 18% Web Producer Goal (LTG) Decrease Lymphedema life impact scale to no greater than 8% as evidence of improved function and quality of life 10/07/20: decreased to 9%. LTG Duration goal mostly met Two Impairment knowledge deficit current lymphedema care Web Producer Goal (LTG) Patient to demonstrate good understanding and compliance with all aspects of self management for lymphedema to include skin care, self massage, lymphedema wrapping, and lymphedema exercises, as well as appropriate fit and care of compression garments. LTG Duration goal met One Impairment Lymphedema right UE STG Duration 09/07/20 Web Producer Goal (LTG) Decrease lymphedema right UE to stable level (no increase or decrease greater than 1 cm over the course of 1 week). Patient will have correct- fitting compression garments for lymphedema management. LTG Duration goal met Assessment Summary Assessment Goals met, patient has gauntlet and sleeve that fit well. Circumferential measurements stable. Independent with self-care. Has information for obtaining replacement sleeves when needed. Ready for discharge to self-care. Physical Therapy Plan Discharge Physical Therapy Discharge Reasons Goals Met Discharge Comments Patient independent with self- management
== END 2020-10-08 09:16 ==
LOC: PHYS 08:15
PROVIDERS: Family Provider Family Medicine; PCP Family Medicine; Referring Provider Family Medicine; Visit Provider Family Medicine
DX: I89.0 Lymphedema, not elsewhere classified (principal)
CPT/HCPCS: 97110; 97140; 97162; 97535

== ENCOUNTER → 2020-10-09 15:11 | Outpatient (CLI) | payer MEDICARE, OTHER, SELFPAY ==
[2020-10-09] MEDS: COVID-19 VACC #2, MRNA(MOD) 100 MCG/0.5 ML VIAL IM (15:17)
== END ==
PROVIDERS: Family Provider Family Medicine; PCP Family Medicine; Visit Provider Internal Medicine
DX: Z23 Encounter for immunization (principal)
CPT/HCPCS: 0012A; 91301

== ENCOUNTER → 2021-01-21 06:57 | Outpatient (CLI) | payer MEDICARE, OTHER, SELFPAY ==
[2021-01-21 07:45] LABS: Add Manual Diff / Slide Review NO; Basophils Absolute Auto 100 /uL (0-100); Basophils Percent Auto 0.9 % (0-2); Eosinophils Absolute Auto 300 /uL (0-450); Eosinophils Percent Auto 3.7 % (2-4); Hematocrit 40.5 % (36-46); Hemoglobin 13.5 g/dL (12.0-16.0); Lymphocytes Absolute Auto 1100 /uL (1100-4500); Mean Corpuscular HGB Conc 33.5 % (30-36); Mean Corpuscular Hemoglobin 31.2 PG (26-34); Mean Corpuscular Volume 93.2 fL (80-100); Monocytes Absolute Auto 600 /uL (0-900); Monocytes Percent Auto 8.1 % (3-14); Neutrophils Absolute Auto 5500 /uL (1500-7000); Neutrophils Percent Auto 72.3 % (50-75); Platelet Count 243 X10^3/uL (150-400); Red Blood Cell Count 4.35 X10^6/uL (4.0-5.2); Red Cell Distribution Width 12.8 % (11.6-14.8); White Blood Cell Count 7.6 X10^3/uL (4.5-11.0)
[2021-01-21 07:59] LABS: Alanine Aminotransferase 20 IU/L (<35); Albumin 4.3 g/dL (3.5-5.0); Albumin Globulin Ratio 1.3 (1.0-2.8); BUN Creatinine Ratio 21.8 (6-22); Bilirubin Total 0.7 mg/dL (0.2-1.3); Blood Urea Nitrogen 29 mg/dL (7-17); Calcium 9.2 mg/dL (8.4-10.2); Carbon Dioxide 26 mmol/L (22-32); Chloride 100 mmol/L (98-107); Cholesterol 153 mg/dL (140-199); Estimated Glomerular Filt Rate 39.2 mL/min (>60); Globulin 3.3 g/dL (1.7-4.1); Glucose 111 mg/dL (80-110); HDL Cholesterol 56 mg/dL (40-60); Hemoglobin A1C% w Est Avg Glu 6.1 % (4.0-6.0); LDL Cholesterol Calculated 67 mg/dL (<100); Sodium 137 mmol/L (137-145); Total Protein 7.6 g/dL (6.3-8.2); Triglycerides 148 mg/dL (35-150)
[2021-01-21 08:07] LABS: HEMOLYSIS 79 (0-50); Potassium 3.8 mmol/L (3.4-5.1)
[2021-01-21 08:08] LABS: Alkaline Phosphatase 60 U/L (38-126); Aspartate Aminotransferase 30 IU/L (14-36)
[2021-01-21 08:13] LABS: Vitamin D 25 Hydroxy (D3) 39.8 ng/mL (30.0-100.0)
== END ==
PROVIDERS: Internal Medicine Hematology & Oncology; Family Provider Family Medicine; PCP Family Medicine; Referring Provider Family Medicine; Visit Provider Family Medicine
DX: R73.03 Prediabetes; C50.919 Malignant neoplasm of unspecified site of unspecified female breast; E78.2 Mixed hyperlipidemia; R73.9 Hyperglycemia, unspecified
CPT/HCPCS: 36415; 80053; 80061; 82306; 83036; 85025

== ENCOUNTER → 2021-02-13 08:42 | Outpatient (CLI) | payer MEDICARE, OTHER, SELFPAY ==
--- NOTE | 2021-02-13 | DI.MG.S_ITS ---
BILATERAL DIGITAL SCREENING MAMMOGRAM 3D/2D WITH CAD: 02/13/2021 CLINICAL: Routine screening. Personal history of right breast cancer. Family history of breast cancer. Comparison is made to exams dated: 02/05/2020 mammogram, 11/23/2018 mammogram, 11/22/2017 mammogram, 11/08/2016 mammogram, and 11/05/2015 mammogram - [facility]. The tissue of both breasts is heterogeneously dense. This may lower the sensitivity of mammography. Current study was also evaluated with a Computer Aided Detection (CAD) system. There are benign calcifications in both breasts. There also are benign post operative findings in the right breast. No significant masses, calcifications, or other findings are seen in either breast. There has been no significant interval change. IMPRESSION: BENIGN There is no mammographic evidence of malignancy. A 1 year screening mammogram is recommended. This exam was interpreted at Station ID: [id number]. NOTE: For mammograms, a report in lay terms will be sent to the patient. Approximately 15% of breast malignancies will not be visualized mammographically. In the management of a palpable breast mass, a negative mammogram must not discourage biopsy of a clinically suspicious lesion. Electronically Signed By: Tyler garcia/catherine:02/15/2021 08:18:03 copy to: FREDA NAVARRO letter sent: Normal Exam ACR BI-RADS Category 2: Benign Finding(s) [id number]
== END ==
PROVIDERS: Family Provider Family Medicine; PCP Family Medicine; Referring Provider Family Medicine; Visit Provider Family Medicine
DX: Z12.31 Encounter for screening mammogram for malignant neoplasm of breast (principal); Z85.3 Personal history of malignant neoplasm of breast; Z80.3 Family history of malignant neoplasm of breast
CPT/HCPCS: 77063; 77067

== ENCOUNTER → 2022-01-25 06:54 | Outpatient (CLI) | payer MEDICARE, OTHER, SELFPAY ==
[2022-01-25 08:06] LABS: Add Manual Diff / Slide Review NO; Basophils Absolute Auto 100 /uL (0-100); Basophils Percent Auto 1.1 % (0-2); Eosinophils Absolute Auto 200 /uL (0-450); Eosinophils Percent Auto 2.3 % (2-4); Hematocrit 39.6 % (36-46); Hemoglobin 13.5 g/dL (12.0-16.0); Lymphocytes Absolute Auto 1200 /uL (1100-4500); Lymphocytes Percent Auto 14.6 % (25-40); Mean Corpuscular HGB Conc 34.1 % (30-36); Mean Corpuscular Hemoglobin 31.4 PG (26-34); Mean Corpuscular Volume 92.1 fL (80-100); Monocytes Absolute Auto 600 /uL (0-900); Monocytes Percent Auto 7.2 % (3-14); Neutrophils Absolute Auto 6300 /uL (1500-7000); Neutrophils Percent Auto 74.8 % (50-75); Platelet Count 251 X10^3/uL (150-400); Red Cell Distribution Width 12.7 % (11.6-14.8); White Blood Cell Count 8.4 X10^3/uL (4.5-11.0)
[2022-01-25 08:12] LABS: Alanine Aminotransferase 19 IU/L (<35); Albumin 4.5 g/dL (3.5-5.0); Albumin Globulin Ratio 1.5 (1.0-2.8); Alkaline Phosphatase 66 U/L (38-126); Aspartate Aminotransferase 23 IU/L (14-36); BUN Creatinine Ratio 19.1 (6-22); Bilirubin Total 0.6 mg/dL (0.2-1.3); Blood Urea Nitrogen 27 mg/dL (7-17); Calcium 9.6 mg/dL (8.4-10.2); Carbon Dioxide 25 mmol/L (22-32); Chloride 102 mmol/L (98-107); Cholesterol 176 mg/dL (140-199); Estimated Glomerular Filt Rate 39 mL/min (>60); Glucose 118 mg/dL (80-110); HDL Cholesterol 71 mg/dL (40-60); HEMOLYSIS < 15 (0-50); LDL Cholesterol Calculated 78 mg/dL (<100); Potassium 4.2 mmol/L (3.4-5.1); Sodium 137 mmol/L (137-145); Total Protein 7.5 g/dL (6.3-8.2); Triglycerides 134 mg/dL (35-150)
[2022-01-25 08:14] LABS: Hemoglobin A1C% w Est Avg Glu 6.2 % (4.0-6.0)
[2022-01-25 08:47] LABS: TSH w/ Reflex to FT4 1.84 uIU/mL (0.47-4.68)
[2022-01-25 09:14] LABS: Vitamin D 25 Hydroxy (D3) 49.4 ng/mL (30.0-100.0)
== END ==
PROVIDERS: Family Provider Family Medicine; PCP Family Medicine; Referring Provider Family Medicine; Visit Provider Family Medicine
DX: E55.9 Vitamin D deficiency, unspecified (principal); R73.9 Hyperglycemia, unspecified; E78.5 Hyperlipidemia, unspecified; E78.2 Mixed hyperlipidemia; N18.1 Chronic kidney disease, stage 1; R79.89 Other specified abnormal findings of blood chemistry
CPT/HCPCS: 36415; 80053; 80061; 82306; 83036; 84443; 85025

== ENCOUNTER → 2022-02-17 09:45 | Outpatient (CLI) | payer MEDICARE, OTHER, SELFPAY ==
--- NOTE | 2022-02-17 09:47 | DI.MG.S_ITS ---
BILATERAL DIGITAL SCREENING MAMMOGRAM 3D/2D WITH CAD: 02/17/2022 CLINICAL: Routine screening. Personal history of right breast cancer. Family history of breast cancer. Comparison is made to exams dated: 02/13/2021 mammogram, 02/05/2020 mammogram, and 11/23/2018 mammogram - [facility]. The tissue of both breasts is heterogeneously dense. This may lower the sensitivity of mammography. Current study was also evaluated with a Computer Aided Detection (CAD) system. There are benign calcifications in both breasts. There also are benign post operative findings in the right breast. No significant masses, calcifications, or other findings are seen in either breast. There has been no significant interval change. IMPRESSION: BENIGN There is no mammographic evidence of malignancy. A 1 year screening mammogram is recommended. This exam was interpreted at Station ID: [id number]. NOTE: For mammograms, a report in lay terms will be sent to the patient. Approximately 15% of breast malignancies will not be visualized mammographically. In the management of a palpable breast mass, a negative mammogram must not discourage biopsy of a clinically suspicious lesion. Electronically Signed By: Milo fish/catherine:02/17/2022 16:00:35 copy to: FREDA NAVARRO letter sent: Normal Exam ACR BI-RADS Category 2: Benign Finding(s) [id number]
== END ==
PROVIDERS: Family Provider Family Medicine; PCP Family Medicine; Referring Provider Family Medicine; Visit Provider Family Medicine
DX: Z12.31 Encounter for screening mammogram for malignant neoplasm of breast (principal); Z85.3 Personal history of malignant neoplasm of breast; Z80.3 Family history of malignant neoplasm of breast
CPT/HCPCS: 77063; 77067

== ENCOUNTER → 2023-01-25 06:43 | Outpatient (CLI) | payer MEDICARE, OTHER, SELFPAY ==
[2023-01-25 08:27] LABS: Add Manual Diff / Slide Review NO; Basophils Absolute Auto 100 /uL (0-100); Eosinophils Absolute Auto 300 /uL (0-450); Eosinophils Percent Auto 3.8 % (2-4); Hematocrit 40.1 % (36-46); Hemoglobin 13.4 g/dL (12.0-16.0); Lymphocytes Absolute Auto 1200 /uL (1100-4500); Lymphocytes Percent Auto 16.9 % (25-40); Mean Corpuscular HGB Conc 33.5 % (30-36); Mean Corpuscular Hemoglobin 31.6 PG (26-34); Mean Corpuscular Volume 94.4 fL (80-100); Monocytes Absolute Auto 500 /uL (0-900); Monocytes Percent Auto 7.5 % (3-14); Neutrophils Absolute Auto 5000 /uL (1500-7000); Neutrophils Percent Auto 70.8 % (50-75); Platelet Count 269 X10^3/uL (150-400); Red Blood Cell Count 4.24 X10^6/uL (4.0-5.2)
[2023-01-25 08:53] LABS: Alanine Aminotransferase 31 IU/L (<35); Albumin 4.2 g/dL (3.5-5.0); Albumin Globulin Ratio 1.5 (1.0-2.8); Alkaline Phosphatase 61 U/L (38-126); Aspartate Aminotransferase 26 IU/L (14-36); BUN Creatinine Ratio 17.7 (6-22); Bilirubin Total 0.8 mg/dL (0.2-1.3); Blood Urea Nitrogen 26 mg/dL (7-17); Calcium 9.3 mg/dL (8.4-10.2); Carbon Dioxide 28 mmol/L (22-32); Chloride 101 mmol/L (98-107); Estimated Glomerular Filt Rate 37 mL/min (>60); Globulin 2.8 g/dL (1.7-4.1); Glucose 117 mg/dL (80-110); HEMOLYSIS < 15 (0-50); Potassium 4.5 mmol/L (3.4-5.1); Sodium 136 mmol/L (137-145)
[2023-01-25 08:59] LABS: Vitamin D 25 Hydroxy (D3) 35.8 ng/mL (30.0-100.0)
[2023-01-26 04:26] LABS: x Labcorp Estim. Avg Glu (eAG) 134 mg/dL (.); x Labcorp Hemoglobin A1c 6.3 % (4.8-5.6)
== END ==
PROVIDERS: Family Provider Family Medicine; PCP Family Medicine; Referring Provider Family Medicine; Visit Provider Family Medicine
DX: E55.9 Vitamin D deficiency, unspecified (principal); E78.5 Hyperlipidemia, unspecified; N18.30 Chronic kidney disease, stage 3 unspecified; R73.03 Prediabetes
CPT/HCPCS: 36415; 80053; 82306; 83036; 85025

== ENCOUNTER → 2023-02-20 07:25 | Outpatient (CLI) | payer MEDICARE, OTHER, SELFPAY ==
--- NOTE | 2023-02-20 07:27 | DI.MG.S_ITS ---
BILATERAL DIGITAL SCREENING MAMMOGRAM 3D/2D WITH CAD POST LUMPECTOMY: 02/20/2023 CLINICAL: Routine screening. Personal history of right breast cancer. Family history of breast cancer. Comparison is made to exams dated: 02/17/2022 mammogram, 02/13/2021 mammogram, and 02/05/2020 mammogram - [facility]. Both breasts are heterogeneously dense, which may obscure small masses (category c / 51-75% glandular tissue). Current study was also evaluated with a Computer Aided Detection (CAD) system. There are benign calcifications in both breasts. There also are benign post operative findings in the right breast. No significant masses, calcifications, or other findings are seen in either breast. There has been no significant interval change. IMPRESSION: BENIGN There is no mammographic evidence of malignancy. A 1 year screening mammogram is recommended. This exam was interpreted at Station ID: [id number]. NOTE: For mammograms, a report in lay terms will be sent to the patient. Approximately 15% of breast malignancies will not be visualized mammographically. In the management of a palpable breast mass, a negative mammogram must not discourage biopsy of a clinically suspicious lesion. Electronically Signed By: Bhanu reina/catherine:02/20/2023 13:26:21 copy to: FREDA NAVARRO letter sent: Normal Exam ACR BI-RADS Category 2: Benign Finding(s) [id number]
== END ==
PROVIDERS: Family Provider Family Medicine; PCP Family Medicine; Referring Provider Family Medicine; Visit Provider Family Medicine
DX: Z12.31 Encounter for screening mammogram for malignant neoplasm of breast (principal); Z85.3 Personal history of malignant neoplasm of breast; Z80.3 Family history of malignant neoplasm of breast
CPT/HCPCS: 77063; 77067

== ENCOUNTER → 2023-03-29 07:39 | Outpatient (CLI) | payer MEDICARE, OTHER, SELFPAY ==
--- NOTE | 2023-03-29 07:42 | DI.MRI.S_ITS ---
PROCEDURE: MR HEAD/BRAIN WO/W CON INDICATIONS: 72-year-old female with headache and history of breast cancer TECHNIQUE: Noncontrast axial T1 spin echo, axial T2 fast spin echo, sagittal and axial FLAIR, coronal T2 fast spin echo, axial gradient echo, axial diffusion and ADC through the brain. After the administration of contrast, axial and coronal and sagittal 3D VIBE or T1 spin echo with fat saturation through the brain. COMPARISON: None. FINDINGS: Image quality: Excellent. CSF Spaces: Basal cisterns are patent. No extra-axial fluid collections. Ventricles are normal in size and shape. Brain: No midline shift. No intracranial bleeds or masses. No abnormal intracranial enhancement. The brainstem appears normal. Diffusion-weighted images demonstrate no acute infarct. Normal intravascular flow voids are present. Mild atrophy and multifocal white matter chronic ischemic change Skull and face: Calvarial marrow is normal in signal. Orbits appear normal. Incidental hyperostosis frontalis interna noted. Bilateral intraocular lens replacements noted. Sinuses: Sinuses and mastoids appear clear. IMPRESSION: Mild atrophy and white matter chronic ischemic change without acute infarct, hemorrhage or mass lesion Dictated by: Chandler Paiz M.D. on 03/29/2023 at 12:07 Approved by: Chandler Paiz M.D. on 03/29/2023 at 12:12
== END ==
PROVIDERS: Family Provider Family Medicine; PCP Family Medicine; Referring Provider Internal Medicine Hematology & Oncology; Visit Provider Internal Medicine Hematology & Oncology
DX: R51.9 Headache, unspecified (principal); C50.919 Malignant neoplasm of unspecified site of unspecified female breast; C64.9 Malignant neoplasm of unspecified kidney, except renal pelvis
CPT/HCPCS: 70553; A9579

== ENCOUNTER → 2024-02-01 06:40 | Outpatient (CLI) | payer MEDICARE, OTHER, SELFPAY ==
[2024-02-01 08:18] LABS: Add Manual Diff / Slide Review NO; Basophils Absolute Auto 100 /uL (0-100); Eosinophils Absolute Auto 300 /uL (0-450); Eosinophils Percent Auto 3.8 % (2-4); Hematocrit 39.9 % (36-46); Hemoglobin 13.4 g/dL (12.0-16.0); Lymphocytes Absolute Auto 1100 /uL (1100-4500); Lymphocytes Percent Auto 14.4 % (25-40); Mean Corpuscular HGB Conc 33.7 % (30-36); Mean Corpuscular Hemoglobin 31.4 PG (26-34); Mean Corpuscular Volume 93.2 fL (80-100); Monocytes Absolute Auto 800 /uL (0-900); Monocytes Percent Auto 10.4 % (3-14); Neutrophils Absolute Auto 5300 /uL (1500-7000); Neutrophils Percent Auto 70.4 % (50-75); Platelet Count 276 X10^3/uL (150-400); Red Blood Cell Count 4.28 X10^6/uL (4.0-5.2); Red Cell Distribution Width 12.5 % (11.6-14.8); White Blood Cell Count 7.5 X10^3/uL (4.5-11.0)
[2024-02-01 08:41] LABS: Alanine Aminotransferase 24 IU/L (<35); Albumin 4.4 g/dL (3.5-5.0); Albumin Globulin Ratio 1.8 (1.0-2.8); Alkaline Phosphatase 65 U/L (38-126); Aspartate Aminotransferase 30 IU/L (14-36); BUN Creatinine Ratio 15.9 (6-22); Blood Urea Nitrogen 24 mg/dL (7-17); Calcium 9.2 mg/dL (8.4-10.2); Carbon Dioxide 29 mmol/L (22-32); Chloride 100 mmol/L (98-107); Cholesterol 167 mg/dL (140-199); Estimated Glomerular Filt Rate 36 mL/min (>60); Globulin 2.5 g/dL (1.7-4.1); Glucose 122 mg/dL (80-110); HDL Cholesterol 66 mg/dL (40-60); HEMOLYSIS < 15 (0-50); LDL Cholesterol Calculated 67 mg/dL (<100); Potassium 4.9 mmol/L (3.4-5.1); Sodium 136 mmol/L (137-145); Total Protein 6.9 g/dL (6.3-8.2); Triglycerides 171 mg/dL (35-150)
[2024-02-01 09:52] LABS: Vitamin D 25 Hydroxy (D3) 41.1 ng/mL (30.0-100.0)
== END ==
LOC: LAB 06:42
PROVIDERS: Family Provider Family Medicine; PCP Family Medicine; Referring Provider Family Medicine; Visit Provider Family Medicine
DX: N18.32 Chronic kidney disease, stage 3b (principal); Z79.899 Other long term (current) drug therapy; E78.5 Hyperlipidemia, unspecified; R73.9 Hyperglycemia, unspecified; E55.9 Vitamin D deficiency, unspecified; N18.1 Chronic kidney disease, stage 1; M81.8 Other osteoporosis without current pathological fracture; R79.89 Other specified abnormal findings of blood chemistry
CPT/HCPCS: 36415; 80053; 80061; 82306; 85025

== ENCOUNTER → 2024-02-23 08:03 | Outpatient (CLI) | payer MEDICARE, OTHER, SELFPAY ==
--- NOTE | 2024-02-23 | DI.MG.S_ITS ---
BILATERAL DIGITAL SCREENING MAMMOGRAM 3D/2D WITH CAD: 02/23/2024 CLINICAL: Routine screening. Personal history of right breast cancer. Family history of breast cancer. Comparison is made to exams dated: 02/20/2023 mammogram, 02/17/2022 mammogram, and 02/13/2021 mammogram - [facility]. Both breasts are heterogeneously dense, which may obscure small masses (category c / 51-75% glandular tissue). Current study was also evaluated with a Computer Aided Detection (CAD) system. There are benign calcifications in both breasts. There also are benign post operative findings in the right breast. No significant masses, calcifications, or other findings are seen in either breast. There has been no significant interval change. IMPRESSION: BENIGN There is no mammographic evidence of malignancy. A 1 year screening mammogram is recommended. This exam was interpreted at Station ID: [id number]. NOTE: For mammograms, a report in lay terms will be sent to the patient. Approximately 15% of breast malignancies will not be visualized mammographically. In the management of a palpable breast mass, a negative mammogram must not discourage biopsy of a clinically suspicious lesion. Electronically Signed By: Rafaela Herring M.D., Ph.D. sheila/catherine:02/23/2024 12:23:34 copy to: FREDA NAVARRO letter sent: Normal Exam ACR BI-RADS Category 2: Benign Finding(s) [id number]
== END ==
PROVIDERS: Family Provider Family Medicine; PCP Family Medicine; Referring Provider Internal Medicine Hematology & Oncology; Visit Provider Internal Medicine Hematology & Oncology
DX: Z12.31 Encounter for screening mammogram for malignant neoplasm of breast (principal); Z85.3 Personal history of malignant neoplasm of breast; Z80.3 Family history of malignant neoplasm of breast; R92.333 Mammographic heterogeneous density, bilateral breasts
CPT/HCPCS: 77063; 77067

== ENCOUNTER → 2024-03-18 10:11 | Outpatient (CLI) | payer MEDICARE, OTHER, SELFPAY ==
--- NOTE | 2024-03-18 10:14 | DI.RAD.S_ITS ---
PROCEDURE: XR KNEE RT 3V INDICATIONS: right knee pain TECHNIQUE: 3 views of the knee were acquired. COMPARISON: None. FINDINGS: Bones: No fractures or dislocations. No patellar subluxation. No suspicious bony lesions. Soft tissues: Small suprapatellar joint effusion. No suspicious soft tissue calcifications. IMPRESSION: No acute right knee fracture or dislocation. Small suprapatellar joint effusion. Dictated by: Nirav Patrick M.D. on 03/18/2024 at 11:48 Approved by: Nirav Patrick M.D. on 03/18/2024 at 11:49
== END ==
PROVIDERS: Family Provider Family Medicine; PCP Family Medicine; Referring Provider Physician Assistant Medical; Visit Provider Physician Assistant Medical
DX: M25.561 Pain in right knee (principal); M25.461 Effusion, right knee
CPT/HCPCS: 73562

== ENCOUNTER 2024-05-07 07:29 | Day surgery (SDC) | payer MEDICARE, OTHER, SELFPAY ==
--- NOTE | 2024-05-07 | PATH_ITS ---
[facility] Accession Number: [id number] No. of containers..01 Tissue . 01 Material submitted: . colon - TRANSVERSE COLON POLYP . 01 Diagnosis: A. TRANSVERSE COLON, POLYPECTOMY: Polypoid colonic mucosa with features consistent with inflammatory polyp. Negative for dysplasia or malignancy. Additional deeper levels were examined. [facility] 05/10/2024 1519 Local . 01 Electronically signed: . Madisyn Robertson MD, Pathologist NPI- [id number] . 01 Gross description: . Received in formalin with two patient identifiers and transverse colon polyp, is a single crocker soft tissue fragment, 0.5 cm in greatest dimension. Submitted in A1. ([id number]) /MRV 05/08/2024 1048 Local . 01 Pathologist provided ICD-10: Z86.010 . 01 CPT . 399513 Specimen Comment: A courtesy copy of this report has been sent to [phone] Performed at: [address] [facility] [address], [place], [place] [id number] MD Jarad Thompson MD Phone: [phone]
[2024-05-07 08:06] VITALS: BP 146/90; PULSE 99; RESP 18; TEMP 35.9; O2SAT 95
[2024-05-07] MEDS: LACTATED RINGERS 1,000 ML 42 ML IV (08:19)
--- NOTE | 2024-05-07 08:41 | PM.HP.1 ---
History of Present Illness History of Present Illness Date Patient Seen: 05/07/24 Time Patient Seen: 08:42 Chief complaint: Colonoscopy w/poss bx Narrative: 74-year-old woman here for screening colonoscopy. Last colonoscopy 5 or 6 years ago notable for a polyp. No abdominal concerns today. She has a history of breast and kidney cancer. [facility] Medical History Cervical somatic dysfunction Thoracic region somatic dysfunction Upper extremity somatic dysfunction Segmental and somatic dysfunction of rib cage Cranial somatic dysfunction Posttraumatic headache Neuropathy due to chemotherapeutic drug Pre-diabetes Breast cancer, right CKD (chronic kidney disease) stage 3, GFR 30-59 ml/min Post-lymphadenectomy lymphedema of arm Lymphedema of arm Renal carcinoma Osteoporosis Hyperlipidemia Hypertension Renal cell carcinoma Breast cancer in female Surgical History History of right oophorectomy H/O ventral hernia repair Hx of tonsillectomy H/O cataract removal with insertion of prosthetic lens Status post biopsy (08/09/12) History of nephrectomy Status post breast lumpectomy (08/23/07) Family History Father Cancer Heart disease Hypertension Hyperlipidemia Mother Heart disease Hypertension Sister Age: 75 Hypertension Hyperlipidemia Grandmother Cancer Social History household members: family occupational status: unemployed Smoking Status: Never smoker alcohol intake: never Meds Home Medications and Allergies Home Medications Medication Instructions Recorded Confirmed Type acetaminophen 500 mg tablet 500 mg PO Q6H PRN pain 04/02/18 05/07/24 History (Tylenol Extra Strength) lymph sleeve #1 ea 07/03/20 03/18/24 Rx hydrochlorothiazide 12.5 mg tablet 12.5 mg PO DAILY #90 tabs 04/26/23 05/07/24 Rx losartan 50 mg tablet 50 mg PO DAILY #90 tabs 04/26/23 05/07/24 Rx simvastatin 20 mg tablet 20 mg PO QDAY #90 tabs 04/26/23 05/07/24 Rx alendronate 70 mg tablet 70 mg PO QWEEK #12 tabs 12/18/23 05/07/24 Rx Allergies Allergy/AdvReac Type Severity Reaction Status Date / Time amlodipine Allergy Mild SWELLING Verified 05/07/24 07:55 fentanyl Allergy Mild VOMITING Verified 05/07/24 07:55 neomycin Allergy Mild VOMITING,BLISTERING Verified 05/07/24 07:55 WITH NEOSPORIN oxycodone Allergy Mild VOMITING Verified 05/07/24 07:55 codeine AdvReac Mild VOMITING Verified 05/07/24 07:55 Exam Vital Signs (past 8 hours): - 05/07/24 08:06 Temperature 96.7 F L Pulse Rate 99 H Respiratory Rate 18 Blood Pressure 146/90 H Pulse Oximetry 95 Oxygen Delivery Method Room Air Oxygen Delivery Method Room Air Narrative Exam Narrative: General adult woman alert oriented no acute distress Chest nonlabored respiration Extremities warm well perfused Assessment & Plan Assessment & Plan narrative: The patient requires colorectal screening and colonoscopy is recommended. Technical details were discussed. Risks, benefits, alternatives explained. Risks including but not limited to myocardial infarction, aspiration, bleeding, pain, missed lesion, incomplete examination, need for further radiographic studies, intestinal injury, and need for major abdominal surgery were discussed. All questions were answered to their satisfaction, and they are in agreement with this plan. Time-Based Coding :: [TOTAL MINUTES] spent with patient and on the chart (including review of chart, obtaining history, exam, reviewing outside data, placing orders, documenting exam and treatment plan, and counseling patient) on [DATE].
--- NOTE | 2024-05-07 08:52 | P.OP.COLON_ITS ---
Operative Date/Time/Diagnoses Date of procedure: 05/07/24 Time of procedure: 08:52 Pre-op diagnosis: Personal history of colonic polyps Procedure & Clinicians Study performed: Incomplete colonoscopy Same procedure as scheduled: Yes Indications: Screening Surgeon: Nik Ravi Procedure Notes Procedure in detail: The history and physical was performed/updated and the patient is ASA class is 3. The procedure was discussed in detail with the patient. Potential risks complications including infection, bleeding, missed diagnosis, perforation, need for surgery, and were explained. Their questions were answered and informed consent was obtained. Patient was brought to the procedure room and placed standard monitoring equipment. The patient's vital signs were monitored continuously throughout the entire procedure. Prior to starting time-out was performed. The patient was placed in the left lateral recumbent position. Procedural sedation was administered by anesthesia. Examination began with a thorough inspection of the perianal area there was no evidence of fissures, fistulae, external hemorrhoids or cutaneous malignancy. The colonoscopy scope was then placed into the anal canal and was advanced forward. We reached the level of the transverse colon however she had significant bradycardia with further insufflation. The procedure was aborted and the scope was withdrawn. The patient tolerated the procedure well. They will be discharged once criteria are met. The prep was of good/excellent quality. The withdrawl time was 5 minutes. FINDINGS * Transverse colon polyp 3 mm removed with biopsy forceps Specimen(s): other (Transverse colon polyp) Impression: Colonic polyp x1 Post-procedure Plan for aftercare: No need for further colonoscopy Disposition: same day surgery
[2024-05-07 09:07] VITALS: BP 90/58; PULSE 81; RESP 16; TEMP 37.1; O2SAT 97
[2024-05-07 09:12] VITALS: BP 98/51; PULSE 90; RESP 15; TEMP 37; O2SAT 96
[2024-05-07 09:23] VITALS: BP 101/69; PULSE 81; RESP 18; TEMP 36.9; O2SAT 97
== END 2024-05-07 09:32 | disposition home or self-care (01) ==
PROVIDERS: Family Provider Family Medicine; PCP Family Medicine; Referring Provider Surgery; Visit Provider Surgery
PROC: 0DJD8ZZ Inspection of Lower Intestinal Tract, Via Natural or Artificial Opening Endoscopic (ICD-10-PCS; CPT 45378; principal; 2024-05-07 08:45)
DX: Z12.11 Encounter for screening for malignant neoplasm of colon (principal); Z86.010 Personal history of colon polyps; Z53.09 Procedure and treatment not carried out because of other contraindication; R00.1 Bradycardia, unspecified; K63.5 Polyp of colon
CPT/HCPCS: 45380; J2704

== ENCOUNTER → 2024-08-06 14:55 | Outpatient (CLI) | payer MEDICARE, OTHER, SELFPAY ==
[2024-08-06 16:35] LABS: TSH w/ Reflex to FT4 1.89 uIU/mL (0.47-4.68)
== END ==
PROVIDERS: Family Provider Family Medicine; PCP Family Medicine; Referring Provider Physician Assistant; Visit Provider Physician Assistant
DX: R19.7 Diarrhea, unspecified (principal); R10.12 Left upper quadrant pain
CPT/HCPCS: 84443

== ENCOUNTER → 2024-08-07 08:09 | Outpatient (CLI) | payer MEDICARE, OTHER, SELFPAY ==
[2024-08-07 10:38] LABS: Clostridium Difficile Tox PCR Negative for C. diff (Negative)
== END ==
PROVIDERS: Family Provider Family Medicine; PCP Family Medicine; Referring Provider Physician Assistant; Visit Provider Physician Assistant
DX: R19.7 Diarrhea, unspecified (principal); R10.12 Left upper quadrant pain
CPT/HCPCS: 83993; 87493

== ENCOUNTER → 2024-08-23 06:38 | Outpatient (CLI) | payer MEDICARE, OTHER, SELFPAY ==
--- NOTE | 2024-08-23 06:40 | DI.US.S_ITS ---
PROCEDURE: US ABDOMEN COMPLETE INDICATIONS: LUQ pain; diarrhea; Hx of R renal cancer and breast cancer TECHNIQUE: Real-time scanning was performed of the abdominal and retroperitoneal organs, with image documentation. COMPARISON: None. FINDINGS: Liver: Liver is borderline enlarged and measures 17.4 cm in length. Diffusely increased liver parenchymal echotexture is seen. Gallbladder: There is no gallstone. No gallbladder wall thickening or pericholecystic fluid. No sonographic Hill sign. Biliary ducts: Intrahepatic bile ducts are non-dilated. Extrahepatic bile duct caliber measures 7.6 mm. Normal is 6-7 mm or less in diameter, or 10 mm or less post-cholecystectomy. Pancreas: Not visualized due to overlying bowel gas. Spleen: Spleen is normal in size and homogeneous in echotexture. Kidneys: Kidneys are normal in size and echotexture. Right kidney is surgically absent. Left kidney measures 10.5 cm long. No hydronephrosis or nephrolithiasis. No solid masses. Aorta: Visualized aorta is normal in caliber at less than 3 cm. Iliacs: Proximal common iliac arteries are normal in caliber at less than 2.5 cm. IVC: Intrahepatic inferior vena cava is patent. Miscellaneous: No free abdominal fluid. IMPRESSION: 1. Borderline hepatomegaly and hepatic steatosis. No gross solid appearing hepatic lesion. 2. Normal appearing gallbladder. No biliary ductal dilatation. 3. Prior right nephrectomy. No abnormality is seen in renal fossa. Left kidney is within normal limits. 4. Pancreas is not visualized. Spleen is within normal limits. Dictated by: Nirav Patrick M.D. on 08/23/2024 at 12:20 Approved by: Nirav Patrick M.D. on 08/23/2024 at 12:21
== END ==
LOC: US 06:39
PROVIDERS: Family Provider Family Medicine; PCP Family Medicine; Referring Provider Physician Assistant; Visit Provider Physician Assistant
DX: R10.12 Left upper quadrant pain (principal); R19.7 Diarrhea, unspecified; Z90.5 Acquired absence of kidney
CPT/HCPCS: 76700

== ENCOUNTER → 2025-02-24 07:10 | Outpatient (CLI) | payer MEDICARE, OTHER, SELFPAY ==
--- NOTE | 2025-02-24 07:12 | DI.MG.S_ITS ---
MM screening mammo BI: 02/24/2025. BI-RADS: 2 CLINICAL: 74-year old female for bilateral screening mammogram. No Tyrer-Cuzick risk score calculation due to the patient's personal history of breast cancer. Patient reports a history of right breast carcinoma diagnosed at age 58. Status-post right lumpectomy with radiation therapy and chemotherapy. Current reported family history of breast cancer: mother. PRIOR EXAMS 02/23/2024, 02/20/2023, 02/17/2022, 02/13/2021, 02/05/2020. MAMMOGRAPHY TECHNIQUE: 2D and 3D (tomosynthesis) digital mammographic views obtained, with additional images as needed for full coverage. Current study was also evaluated with a Computer Aided Detection (CAD) system. DENSITY C. The breasts are heterogeneously dense, which may obscure small masses. MAMMOGRAPHY FINDINGS Right: Benign-appearing calcification and post-surgical changes noted on the right. There are no suspicious masses, calcifications, or other findings in the breast. No significant change from comparison. Left: Benign-appearing calcification noted on the left. There are no suspicious masses, calcifications, or other findings in the breast. No significant change from comparison. IMPRESSION: * No evidence of malignancy with benign findings. RECOMMENDATIONS Bilateral * Annual screening mammography. OVERALL ASSESSMENT CATEGORY BI-RADS-2: Benign. The [employer] recommends annual screening mammography beginning at age 40 for women with average risk of breast cancer. ELECTRONICALLY SIGNED: Adrienne Mcgowan M.D. on 02/24/2025 at 10:28:21 PM PT Interpreting Station ID: [id number]
== END ==
LOC: MAMMO 07:11
PROVIDERS: PCP Family Medicine; Referring Provider Family Medicine; Visit Provider Family Medicine
DX: Z12.31 Encounter for screening mammogram for malignant neoplasm of breast (principal); R92.333 Mammographic heterogeneous density, bilateral breasts; R92.1 Mammographic calcification found on diagnostic imaging of breast; Z85.3 Personal history of malignant neoplasm of breast; Z80.3 Family history of malignant neoplasm of breast
CPT/HCPCS: 77063; 77067

== ENCOUNTER → 2025-08-04 09:18 | Outpatient (CLI) | payer MEDICARE, OTHER, SELFPAY ==
[2025-08-04 10:07] LABS: Add Manual Diff / Slide Review NO; Hematocrit 38.8 % (36-46); Hemoglobin 13.0 g/dL (12.0-16.0); Lymphocytes Absolute Auto 1300 /uL (1100-4500); Mean Corpuscular HGB Conc 33.6 % (30-36); Mean Corpuscular Hemoglobin 31.5 PG (26-34); Mean Corpuscular Volume 93.7 fL (80-100); Platelet Count 250 X10^3/uL (150-400)
[2025-08-04 10:24] LABS: Alanine Aminotransferase 18 IU/L (<35); Albumin 4.3 g/dL (3.5-5.0); Albumin Globulin Ratio 1.5 (1.0-2.8); Alkaline Phosphatase 62 U/L (38-126); Blood Urea Nitrogen 24 mg/dL (7-17); Calcium 9.6 mg/dL (8.4-10.2); Carbon Dioxide 27 mmol/L (22-32); Chloride 101 mmol/L (98-107); Cholesterol 144 mg/dL (140-199); Estimated Glomerular Filt Rate 35 mL/min (>60); Globulin 2.9 g/dL (1.7-4.1); Glucose 143 mg/dL (70-99); HDL Cholesterol 63 mg/dL (40-60); HEMOLYSIS < 15 (0-50); Potassium 4.2 mmol/L (3.4-5.1); Sodium 138 mmol/L (137-145); Total Protein 7.2 g/dL (6.3-8.2); Triglycerides 146 mg/dL (35-150)
[2025-08-04 10:25] LABS: Hemoglobin A1C% w Est Avg Glu 6.1 % (4.0-6.0)
== END ==
PROVIDERS: PCP Family Medicine; Referring Provider Family Medicine; Visit Provider Family Medicine
DX: N18.32 Chronic kidney disease, stage 3b (principal); R73.03 Prediabetes; E78.5 Hyperlipidemia, unspecified
CPT/HCPCS: 36415; 80053; 80061; 83036; 85025